=== PATIENT | male | born 1955 | race Caucasian/White ===

== ENCOUNTER 2018-12-22 01:50 | Emergency (ER) | payer OTHER ==
[2018-12-22 02:05] VITALS: PULSE 76; TEMP 98.2
[2018-12-22] MEDS ORDERED: PROPARACAINE 0.5% OPHTH DROPS 15 ML BTL BOTH EYES STA (02:16)
--- NOTE | 2018-12-22 02:30 | ED ---
General Adult HPI - General Chief complaint: Head Injury Stated complaint: L eye/shoulder injury Time Seen by Provider: 12/22/18 02:10 Source: patient Mode of arrival: ambulatory Limitations: no limitations - History of Present Illness Initial comments: Dictation was produced using [employer] dictation software. please excuse any grammatical, word or spelling errors. Chief Complaint: 63-year-old male past medical history of COPD and myocardial infarction presents with shoulder pain and facial pain. 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 He states that he was at work under several pounds of lumber. He states the lumbar fell onto him. He complains of right shoulder pain. He states some of that would struck him in the left part of his face hitting his eye. Patient has any visual deficits. He does complain of some eye pain. The ROS documented in this emergency department record has been reviewed and confirmed by me. Those systems with pertinent positive or negative responses have been documented in the HPI. All other systems are other negative and/or noncontributory. PHYSICAL EXAM: General Impression: Alert and oriented x3, not in acute distress HEENT: , extra-ocular movements intact, pupils equal and reactive to light bilaterally, mucous membranes moist. Ecchymoses around the left lower eye periorbitally, pupil is round and react to light, there is ecchymosis on both sides of the left iris, extraocular muscles intact, no proptosis or enophthalmos. Cardiovascular: Heart regular rate and rhythm, S1&S2 audible, no murmurs, rubs or gallops Chest: Lungs clear to auscultation bilaterally, no rhonchi, no wheeze, no rales Abdomen: Bowel sounds present, abdomen soft, non-tender, non-distended, no organomegaly Musculoskeletal: Pulses present and equal in all extremities, no peripheral edema, patient able to touch his contralateral shoulder with his right upper extremity, no step-offs felt over the clavicle, antalgia with past range of motion of the left shoulder Motor: no focal deficits noted Neurological: CN II-XII grossly intact, no focal motor or sensory deficits noted Skin: Intact with no visualized rashes Psych: Normal affect and mood ED course: 63-year-old male presents with left eye injury and right shoulder pain after a traumatic event. Vital signs upon arrival are within acceptable limits.Imaging studies were obtained. Face CT is unremarkable. No signs of acute injuries there. Shoulder x-ray shows calcific tendinitis to the right shoulder. Computed tomography scan of the head and C-spine was obtained. Chest x-rays unremarkable. There is findings of chronic appearing T1 compression fracture. Patient denies any neck pain at this time. Lower seen testing was obtained showing epithelial defect to the visual axis at approximately the 4 5 o'clock position. Defect measures approximately 2 x 3 mm. No evidence of Bee sign. Pupils are equal round and reactive. Patient does have findings of hemorrhage ecchymosis. Discussed patient case in detail with Dr. Issa ophthalmology on-call who does not feel that patient's symptomatology reflects globe rupture. He recommends patient be given eyedrops. And to make an appointment with him in the clinic tomorrow morning. She is understandable agreeable to plan. Told to return to emergency Department with worsening eye pain, vision changes. He is understandable and agreeable to disposition plan. - Related Data Previous Rx's Medication Instructions Recorded Levofloxacin 0.5% Ophth Soln 2 drop LEFT EYE Q2H #1 bottle 12/22/18 [Quixin Ophth Soln] Allergies Allergy/AdvReac Type Severity Reaction Status Date / Time ibuprofen [From Motrin] Allergy Vomiting Verified 12/22/18 02:06 acetaminophen [From Tylenol] AdvReac Nausea Verified 12/22/18 02:06 indomethacin [From Indocin] AdvReac Nausea Verified 12/22/18 02:06 propoxyphene [From Darvon] AdvReac Nausea Verified 12/22/18 02:06 Review of Systems ROS Statement: Those systems with pertinent positive or pertinent negative responses have been documented in the HPI. ROS Other: All systems not noted in ROS Statement are negative. Past Medical History Past Medical History: COPD, Myocardial Infarction ([place]) Additional Past Medical History / Comment(s): Parkinsons White symdrome, vertigo, spinal injuries, History of Any Multi-Drug Resistant Organisms: None Reported Additional Past Surgical History / Comment(s): CTS surguries Past Psychological History: ADD/ADHD, Anxiety, Bipolar, Depression, PTSD, Schizophrenia Smoking Status: Never smoker Past Alcohol Use History: None Reported Past Drug Use History: None Reported General Exam Limitations: no limitations Course Vital Signs 12/22/18 01:59 Temperature 98.2 F Pulse Rate 76 Respiratory 19 Rate Blood Pressure 147/86 O2 Sat by Pulse 99 Oximetry Disposition Clinical Impression: Eyeball contusion, Shoulder strain Disposition: HOME SELF-CARE Condition: Good Instructions (If sedation given, give patient instructions): Corneal Abrasion (ED) Prescriptions: Levofloxacin 0.5% Ophth Soln [Quixin Ophth Soln] 2 drop LEFT EYE Q2H #1 bottle Is patient prescribed a controlled substance at d/c from ED?: No Referrals: Santi Issa MD [STAFF PHYSICIAN] - 1-2 days Time of Disposition: 05:18
--- NOTE | 2018-12-22 04:17 | XR ---
EXAM: XR Right Shoulder Complete, 2 or More Views CLINICAL HISTORY: ITS.REASON XR Reason: Pain TECHNIQUE: Two or more views of the right shoulder. COMPARISON: None available FINDINGS: Bones/joints: No evidence of acute fracture or dislocation. Minimal degenerative changes about the acromioclavicular joint. Soft tissues: Small periarticular calcification along lateral aspect of humeral head suggesting calcific tendinitis. IMPRESSION: No evidence of acute fracture or dislocation. Findings suggestive of mild calcific tendinitis.
--- NOTE | 2018-12-22 04:23 | XR ---
EXAM: XR Chest, 2 Views CLINICAL HISTORY: ITS.REASON XR Reason: Pain TECHNIQUE: Frontal and lateral views of the chest. COMPARISON: No relevant prior studies available. FINDINGS: Lungs: No focal pulmonary infiltrates or consolidations. Pleural space: No evidence of pleural effusion or pneumothorax. Heart: Heart size is within normal limits. Mediastinum: Mediastinal structures are unremarkable. Bones/joints: Imaged bony thorax is unremarkable. IMPRESSION: No evidence of acute cardiopulmonary disease.
--- NOTE | 2018-12-22 04:36 | CT ---
EXAM: CT Maxillofacial Without Intravenous Contrast CLINICAL HISTORY: ITS.REASON CT Reason: Pain TECHNIQUE: Axial computed tomography images of the face without intravenous contrast. CTDI is 10.4 mGy and DLP is 283.4 mGy-cm. This CT exam was performed using one or more of the following dose reduction techniques: automated exposure control, adjustment of the mA and/or kV according to patient size, and/or use of iterative reconstruction technique. COMPARISON: None available FINDINGS: Artifacts: Mild CT motion artifact. Bones/joints: No evidence of acute facial fracture. Mild deformity along medial left orbital wall likely related to old trauma. No evidence of acute orbital fracture. Soft tissues: No significant soft tissue swelling identified. Orbits: Unremarkable. Sinuses: Paranasal sinuses are clear. No sinus fluid. Nasal cavity/septum: Moderate leftward deviation of nasal septum. IMPRESSION: No evidence of acute facial fracture.
[2018-12-22] MEDS ORDERED: DIPH,PERTUS(ACELL)TETVAC-LF 0.5 ML VIAL IM ONE (04:48)
[2018-12-22] MEDS ORDERED: MORPHINE SULFATE 4 MG/ML SYRINGE IVP STA (04:55)
--- NOTE | 2018-12-22 05:04 | CT ---
EXAM: CT Head Without Intravenous Contrast CLINICAL HISTORY: ITS.REASON CT Reason: Pain TECHNIQUE: Axial computed tomography images of the head/brain without intravenous contrast. CTDI is 25.9 mGy and DLP is 794.8 mGy-cm. This CT exam was performed using one or more of the following dose reduction techniques: automated exposure control, adjustment of the mA and/or kV according to patient size, and/or use of iterative reconstruction technique. COMPARISON: None available FINDINGS: Brain: No evidence of acute transcortical cerebral infarction or intracranial hemorrhage. No abnormal mass effect or midline shift. No abnormal extra-axial collections. Ventricles: Ventricles are unremarkable. Bones/joints: No skull fracture identified. Sinuses: Imaged paranasal sinuses are clear. Mastoid air cells: Mastoid sinuses are clear. IMPRESSION: No evidence of acute intracranial abnormality. EXAM: CT Cervical Spine Without Intravenous Contrast CLINICAL HISTORY: ITS.REASON CT Reason: Pain TECHNIQUE: Axial computed tomography images of the cervical spine without intravenous contrast. CTDI is 10.4 mGy and DLP is 283.4 mGy-cm. This CT exam was performed using one or more of the following dose reduction techniques: automated exposure control, adjustment of the mA and/or kV according to patient size, and/or use of iterative reconstruction technique. COMPARISON: None available FINDINGS: Vertebrae: Cervical vertebral height and alignment are within normal limits except for mild reversal of normal cervical lordosis. No evidence of acute cervical fracture or subluxation. Minimal T1 anterior vertebral compression fracture deformity which has probably chronic appearance. Discs/spinal canal/neural foramina: Moderate multilevel cervical disc disease, spondylosis and facet joint arthropathy. Soft tissues: No abnormal prevertebral soft tissue thickening. IMPRESSION: No evidence of acute cervical fracture or subluxation. Minimal T1 anterior vertebral compression fracture deformity which appears probably chronic. Clinical correlation is recommended. <MYCVCSECTION> [employer] 12/22/18 05:13 Verify Receipt Verified receipt with Dr. Light on 12/22 05:13 (-04:00)
[2018-12-22] MEDS ORDERED: ERYTHROMYCIN 5 MG/GM OPHTH OINT 3.5 GM TUBE LEFT EYE STA (05:14)
[2018-12-22 05:37] VITALS: BP 130/72; RESP 16
== END 2018-12-22 05:37 | disposition home or self-care (01) ==
LOC: EC 01:50
DX: S46.911A Strain of unspecified muscle, fascia and tendon at shoulder and upper arm level, right arm, initial encounter (principal); S05.12XA Contusion of eyeball and orbital tissues, left eye, initial encounter; Z23 Encounter for immunization; M75.31 Calcific tendinitis of right shoulder; I25.2 Old myocardial infarction; Z88.6 Allergy status to analgesic agent; Z88.5 Allergy status to narcotic agent; Z88.8 Allergy status to other drugs, medicaments and biological substances; W20.8XXA Other cause of strike by thrown, projected or falling object, initial encounter; Y92.69 Other specified industrial and construction area as the place of occurrence of the external cause; Y99.0 Civilian activity done for income or pay
CPT/HCPCS: 73030; 71046; 72125; 70486; 70450; 90715; 99284; 90471; 96374; J2270

== ENCOUNTER 2021-01-07 17:02 | Observation (INO) | payer OTHER ==
[2021-01-07] MEDS ORDERED: SODIUM CHLORIDE 0.9% 1,000 ML IV STA (17:13)
--- NOTE | 2021-01-07 17:24 | ED ---
General Adult HPI - General Chief complaint: Chest Pain Stated complaint: Chest pain Time Seen by Provider: 01/07/21 17:04 Source: patient Mode of arrival: ambulatory Limitations: no limitations - History of Present Illness Initial comments: Dictation was produced using [employer] dictation software. please excuse any grammatical, word or spelling errors. Chief Complaint: 65-year-old male past medical history of COPD, myocardial infarction, WPW status post ablation presents to the emergency department for sharp chest pain and palpitations History of Present Illness: She is 65-year-old male. Has multiple comorbidities. He states that over the last couple days he developed dizziness, sharp chest pain, palpitations. Patient has history of WPW. He is status post cardiac ablation hasn't had any issues since the ablation several years ago. Patient states that he's been feeling dizzy. He is having some superpubic abdominal pain and difficulty urinating. Patient states the pain is sharp and located to his left lower chest. He states it does radiate to the right jaw. No associated diaphoresis nausea. The ROS documented in this emergency department record has been reviewed and confirmed by me. Those systems with pertinent positive or negative responses have been documented in the HPI. All other systems are other negative and/or noncontributory. PHYSICAL EXAM: General Impression: Alert and oriented x3, not in acute distress HEENT: Normocephalic atraumatic, extra-ocular movements intact, pupils equal and reactive to light bilaterally, mucous membranes moist. Cardiovascular: Heart regular rate and rhythm Chest: Able to complete full sentences, no retractions, no tachypnea Abdomen: abdomen soft, non-tender, non-distended, no organomegaly Musculoskeletal: Pulses present and equal in all extremities, no peripheral edema Motor: no focal deficits noted Neurological: CN II-XII grossly intact, no focal motor or sensory deficits noted Skin: Intact with no visualized rashes Psych: Normal affect and mood ED course: 64-year-old male presents to the emergency room for chest pain, palpitations and dizziness. Vital signs upon arrival are within acceptable limits. Patient is well-appearing at bedside. Post void residual was measured with bladder scan from greater than 550 mL of urine. Villa catheter was placed. Laboratory evaluation obtained. CBC, metabolic panel is unremarkable. Troponin is negative. Chest x-ray is nonacute. Patient reevaluated at bedside at 7:10 PM found to be stable medical condition. Patient does have coronary artery disease. Patient be admitted for cardiac monitoring, serial troponins and cardiac consultation. EKG interpretation: Ventricular rate 85, normal sinus rhythm, VT interval 160, QRS 108, QTC 471. No VT prolongation, no QTC prolongation, no ST or T-wave velásquez ges noted. Overall, this EKG is unremarkable - Related Data Previous Rx's Medication Instructions Recorded Levofloxacin 0.5% Ophth Soln 2 drop LEFT EYE Q2H #1 bottle 12/22/18 [Quixin Ophth Soln] Allergies Allergy/AdvReac Type Severity Reaction Status Date / Time ibuprofen [From Motrin] Allergy Vomiting Verified 01/07/21 17:05 acetaminophen [From Tylenol] AdvReac Nausea Verified 01/07/21 17:05 indomethacin [From Indocin] AdvReac Nausea Verified 01/07/21 17:05 propoxyphene [From Darvon] AdvReac Nausea Verified 01/07/21 17:05 Review of Systems ROS Statement: Those systems with pertinent positive or pertinent negative responses have been documented in the HPI. ROS Other: All systems not noted in ROS Statement are negative. Past Medical History Past Medical History: COPD, Myocardial Infarction ([place]) Additional Past Medical History / Comment(s): [place] Parkinsons White symdrome, vertigo, spinal injuries, History of Any Multi-Drug Resistant Organisms: None Reported Past Surgical History: Cardiac Ablation Additional Past Surgical History / Comment(s): CTS surguries Past Psychological History: ADD/ADHD, Anxiety, Bipolar, Depression, PTSD, Schizo phrenia Smoking Status: Current every day smoker Past Alcohol Use History: None Reported Past Drug Use History: None Reported General Exam Limitations: no limitations Course Vital Signs 01/07/21 01/07/21 17:05 18:30 Temperature 98 F Pulse Rate 86 82 Respiratory 18 18 Rate Blood Pressure 164/112 156/112 O2 Sat by Pulse 100 99 Oximetry Medical Decision Making - Lab Data Result diagrams: 01/07/21 17:20 01/07/21 17:20 Lab Results 01/07/21 01/07/21 01/07/21 Range/Units 17:20 17:20 17:20 WBC 8.5 (3.8-10.6) k/uL RBC 5.31 (4.30-5.90) m/uL Hgb 15.8 (13.0-17.5) gm/dL Hct 47.4 (39.0-53.0) % MCV 89.3 (80.0-100.0) fL MCH 29.8 (25.0-35.0) pg MCHC 33.3 (31.0-37.0) g/dL RDW 13.9 (11.5-15.5) % Plt Count 189 (150-450) k/uL MPV 9.1 Neutrophils % 70 % Lymphocytes % 18 % Monocytes % 8 % Eosinophils % 2 % Basophils % 1 % Neutrophils # 5.9 (1.3-7.7) k/uL Lymphocytes # 1.5 (1.0-4.8) k/uL Monocytes # 0.7 (0-1.0) k/uL Eosinophils # 0.2 (0-0.7) k/uL Basophils # 0.1 (0-0.2) k/uL Sodium 136 L (137-145) mmol/L Potassium 3.5 (3.5-5.1) mmol/L Chloride 103 (98-107) mmol/L Carbon Dioxide 25 (22-30) mmol/L Anion Gap 8 mmol/L BUN 12 (9-20) mg/dL Creatinine 0.75 (0.66-1.25) mg/dL Est GFR (CKD-EPI)AfAm >90 (>60 ml/min/1.73 sqM) Est GFR (CKD-EPI)NonAf >90 (>60 ml/min/1.73 sqM) Glucose 100 H (74-99) mg/dL Calcium 9.7 (8.4-10.2) mg/dL Magnesium 2.0 (1.6-2.3) mg/dL Total Bilirubin 0.6 (0.2-1.3) mg/dL AST 28 (17-59) U/L ALT 26 (4-49) U/L Alkaline Phosphatase 62 (38-126) U/L Troponin I <0.012 (0.000-0.034) ng/mL Total Protein 6.9 (6.3-8.2) g/dL Albumin 4.1 (3.5-5.0) g/dL TSH 1.420 (0.465-4.680) mIU/L Disposition Clinical Impression: Chest pain Disposition: ADMITTED IP TO THIS HOSP Condition: Fair Referrals: Nonstaff,Physician [Primary Care Provider] - 1-2 days
[2021-01-07 17:39] LABS: ALT 26 U/L (4-49); AST 28 U/L (17-59); African American GFR (CKD) >90 (>60 ml/min/1.73 sqM); Albumin 4.1 g/dL (3.5-5.0); Alkaline Phosphatase 62 U/L (38-126); Anion Gap 8 mmol/L; Blood Urea Nitrogen 12 mg/dL (9-20); Calcium 9.7 mg/dL (8.4-10.2); Carbon Dioxide 25 mmol/L (22-30); Chloride 103 mmol/L (98-107); Glucose 100 mg/dL (74-99); Non-African American GFR(CKD) >90 (>60 ml/min/1.73 sqM); Potassium 3.5 mmol/L (3.5-5.1); Sodium 136 mmol/L (137-145); Total Bilirubin 0.6 mg/dL (0.2-1.3); Total Protein 6.9 g/dL (6.3-8.2)
--- NOTE | 2021-01-07 17:44 | XR ---
EXAMINATION TYPE: XR chest 2V DATE OF EXAM: 01/07/2021 COMPARISON: 12/22/2018 HISTORY: Chest pain TECHNIQUE: 2 views FINDINGS: Heart and mediastinum are normal. Lungs are clear. Diaphragm is normal. Bony thorax is inta ct. There is widening of the right AC joint space related to old ligamentous tear. IMPRESSION: No cardiopulmonary disease.. No change.
[2021-01-07 18:01] LABS: Basophils # (A) 0.1 k/uL (0-0.2); Basophils % (A) 1 %; Eosinophils # (A) 0.2 k/uL (0-0.7); Eosinophils % (A) 2 %; HCT 47.4 % (39.0-53.0); HGB 15.8 gm/dL (13.0-17.5); Lymphocytes # (A) 1.5 k/uL (1.0-4.8); Lymphocytes % (A) 18 %; MCH 29.8 pg (25.0-35.0); MCHC 33.3 g/dL (31.0-37.0); MCV 89.3 fL (80.0-100.0); Mean Platelet Volume 9.1; Monocytes # (A) 0.7 k/uL (0-1.0); Monocytes % (A) 8 %; Neutrophils # (A) 5.9 k/uL (1.3-7.7); Neutrophils % (A) 70 %; Platelet Count 189 k/uL (150-450); RBC 5.31 m/uL (4.30-5.90); RDW 13.9 % (11.5-15.5); WBC 8.5 k/uL (3.8-10.6)
[2021-01-07] MEDS ORDERED: ASPIRIN 81 MG PO STA (19:14)
[2021-01-07] MEDS ORDERED: NITROGLYCERIN SL TABS 0.4 MG TAB SUBLINGUAL PRN (19:14)
[2021-01-07 19:36] LABS: Partial Thromboplastin Time 24.2 sec (22.0-30.0); Prothrombin Time 10.8 sec (9.0-12.0)
[2021-01-07 20:00] LABS: Appearance,Urine Clear (Clear); Bilirubin,Urine Negative (Negative); Blood,Urine Negative (Negative); Color,Urine Colorless; Glucose,Urine (UA) Negative (Negative); Ketones,Urine 1+ (Negative); Leukocyte Esterase,Urine Negative (Negative); Nitrite,Urine Negative (Negative); PH, Urine 7.5 (5.0-8.0); Protein,Urine Negative (Negative); Specific Gravity,Urine 1.003 (1.001-1.035); Urobilinogen,Urine <2.0 mg/dL (<2.0)
[2021-01-07 20:07] LABS: Amphetamine Screen,Urine Detected (NotDetected); Barbiturate Screen,Urine Not Detected (NotDetected); Benzodiazepines Screen,Urine Not Detected (NotDetected); Cocaine Screen,Urine Not Detected (NotDetected); Methadone Screen, Urine Not Detected (NotDetected); Opiate Screen,Urine Not Detected (NotDetected); Oxycodone Screen, Urine Not Detected (NotDetected); Phencyclidine Screen,Urine Not Detected (NotDetected); Tricyclic Antidepressant,Urine Not Detected (NotDetected); Urn Cannabinoid Scrn Not Detected (NotDetected)
[2021-01-07] MEDS ORDERED: HYDROcodone/APAP 7.5-325MG 1 EACH TAB PO PRN (20:52)
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
[2021-01-08] MEDS: HEPARIN SODIUM,PORCINE/PF 5,000 UNIT/0.5 ML SYRINGE SQ SCH ×2 (00:43→08:45)
[2021-01-08 07:22] VITALS: BP 154/90; PULSE 79; RESP 16; TEMP 98.2
[2021-01-08] MEDS ORDERED: ASPIRIN 325 MG TAB PO SCH (09:00)
[2021-01-08] MEDS ORDERED: GABAPENTIN 300 MG CAP PO SCH (09:00)
[2021-01-08 09:24] LABS: Chol/HDL Ratio 2.6; LDL Cholesterol,Calculated 72.6 mg/dL (0.0-131.0); VLDL Calculation 18.4 mg/dL (5.00-40.00)
--- NOTE | 2021-01-08 13:42 | P.DS ---
Providers Date of admission: 01/07/21 19:14 Expected date of discharge: 01/08/21 Attending physician: Dylon Duarte MD Consults: 01/07/21 19:14 Consult Physician Urgent Consulting Provider: Michael Dillard Consult Reason/Comments: chest pain Do you want consulting provider notified?: Yes 01/07/21 19:36 Consult Physician Urgent Consulting Provider: Elieser Keller Consult Reason/Comments: psychosis Do you want consulting provider notified?: Yes Primary care physician: Physician Nonstaff Hospital Course: Pt left AMA prior to my evaluation this morning. Plan - Discharge Summary Discharge Rx Participant: No New Discharge Prescriptions: No Action HYDROcodone/APAP 7.5-325MG [[place] 7.5-325] 1 tab PO BID PRN PRN Reason: Pain Gabapentin [Neurontin] 300 mg PO DAILY Discharge Medication List Gabapentin [Neurontin] 300 mg PO DAILY 01/07/21 [History] HYDROcodone/APAP 7.5-325MG [[place] 7.5-325] 1 tab PO BID PRN 01/07/21 [History] Follow up Appointment(s)/Referral(s): Nonstaff,Physician [Primary Care Provider] - 1-2 days Discharge Disposition: Left Against Medical Advice
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
== END 2021-01-08 11:35 | disposition left against medical advice (07) ==
LOC: EC 17:02 → 6NMEDSUR 19:14
PROVIDERS: ADMIT Internal Medicine; ATTEND Internal Medicine
DX: R07.2 Precordial pain (principal); F19.10 Other psychoactive substance abuse, uncomplicated; R00.2 Palpitations; Z53.29 Procedure and treatment not carried out because of patient's decision for other reasons; I45.6 Pre-excitation syndrome; F20.9 Schizophrenia, unspecified; R30.0 Dysuria; M19.90 Unspecified osteoarthritis, unspecified site; M47.816 Spondylosis without myelopathy or radiculopathy, lumbar region; F17.200 Nicotine dependence, unspecified, uncomplicated; F31.9 Bipolar disorder, unspecified; F43.10 Post-traumatic stress disorder, unspecified; F90.9 Attention-deficit hyperactivity disorder, unspecified type; I25.10 Atherosclerotic heart disease of native coronary artery without angina pectoris; M51.36 Other intervertebral disc degeneration, lumbar region; I25.2 Old myocardial infarction; I44.4 Left anterior fascicular block; I51.7 Cardiomegaly; J44.9 Chronic obstructive pulmonary disease, unspecified; Z79.899 Other long term (current) drug therapy; Z88.6 Allergy status to analgesic agent; Z88.5 Allergy status to narcotic agent; F14.90 Cocaine use, unspecified, uncomplicated; F12.99 Cannabis use, unspecified with unspecified cannabis-induced disorder
CPT/HCPCS: 96360; 96361; 96372; 99285; 51798; 36415; 93005; 80061; 80053; 83735; 84443; 84484; 85025; 85610; 85730; 81003; 80306; 71046; G0378 ×2; J1644

== ENCOUNTER 2024-10-31 15:56 | Inpatient (IN) | payer MEDICARE, OTHER ==
[2024-10-31 16:41] LABS: Glucose,Whole Blood 81 mg/dL (70-110)
[2024-10-31 16:44] LABS: Basophils # (A) 0.06 10*3/uL (0.00-0.10); Basophils % (A) 0.7 %; Eosinophils # (A) 0.07 10*3/uL (0.04-0.35); Eosinophils % (A) 0.9 %; HCT 44.4 % (39.6-50.0); HGB 15.1 g/dL (13.0-17.0); Lymphocytes # (A) 1.74 10*3/uL (0.90-5.00); Lymphocytes % (A) 21.3 %; MCH 29.6 pg (27.0-32.0); MCV 87.1 fL (80.0-97.0); Mean Platelet Volume 10.8 fL (9.5-12.2); Monocytes # (A) 0.74 10*3/uL (0.20-1.00); Monocytes % (A) 9.1 %; Neutrophils # (A) 5.54 10*3/uL (1.80-7.70); Neutrophils % (A) 67.8 %; Platelet Count 277 10*3/uL (140-440); RDW 13.6 % (11.5-14.5); WBC 8.17 10*3/uL (4.50-10.00)
[2024-10-31 16:53] LABS: Partial Thromboplastin Time 23.2 sec (22.0-30.0); Prothrombin Time 10.9 sec (10.0-12.5)
[2024-10-31] MEDS: SODIUM CHLORIDE 0.9% 1,000 ML IV STA (16:55)
[2024-10-31] MEDS: MORPHINE SULFATE 2 MG/ML SYRINGE IVP STA (16:55)
[2024-10-31 17:02] LABS: ALT 18 U/L (4-49); AST 24 U/L (17-59); African American GFR (CKD) >90 (>60 ml/min/1.73 sqM); Albumin 3.8 g/dL (3.5-5.0); Alkaline Phosphatase 54 U/L (38-126); Anion Gap 11 mmol/L; Blood Urea Nitrogen 18 mg/dL (9-20); Calcium 10.3 mg/dL (8.4-10.2); Carbon Dioxide 26 mmol/L (22-30); Chloride 101 mmol/L (98-107); Creatine Kinase 206 U/L (55-170); Glucose 82 mg/dL (74-99); Non-African American GFR(CKD) 89 (>60 ml/min/1.73 sqM); Potassium 4.1 mmol/L (3.5-5.1); Sodium 138 mmol/L (137-145); Total Bilirubin 0.5 mg/dL (0.2-1.3); Total Protein 6.5 g/dL (6.3-8.2)
--- NOTE | 2024-10-31 17:31 | CT ---
EXAMINATION TYPE: CODE STROKE: CTA head neck DATE OF EXAM: 10/31/2024 4:53 PM COMPARISON: CT brain same day.. CLINICAL INDICATION: Male, 69 years old with history of Neuro deficit, acute, stroke suspected; PHH, Code stroke TECHNIQUE: Axially acquired helical CT angiogram of the head and neck was obtained with contrast. Axi al images are supplemented with 3D reconstructions and MIP images which were post-processed at an in dependent workstation. NASCET criteria used. Contrast used:65 ml mL of Isovue 370 with IV Contrast, Oral contrast used: None. CT DLP: 599.6 mGycm, Automated exposure control for dose reduction was used. Repeat scanning was performed for artifact. FINDINGS: CTA HEAD: No evidence of acute intracranial hemorrhage, mass effect, or midline shift. The ventricles, sulci, a nd cisterns are unremarkable. Vertebral arteries: The vertebral arteries are patent. Vertebral artery dominance: Codominant Basilar artery: The basilar artery is intact. The basilar artery bifurcation is normal. Internal Carotid arteries: The cervical, petrous, cavernous and supraclinoid segments are normal. FAISAL: Patent with no evidence of aneurysm. ACOM: Present without evidence of aneurysm. MCA: Patent with no evidence of aneurysm. GAS LINE INSTALLER: origin left posterior cerebral artery. Patent with no evidence of aneurysm. PCOM: origin left hypoplastic right. Dural sinuses: Patent. CTA NECK: Right Carotid System: The common carotid artery and external carotid artery are patent. Tortuosity to the internal carotid artery. The carotid bifurcation demonstrates no evidence of hemodynamically significant stenosis. The remaining portions of the internal carotid artery demonstrate normal size without significant narrow ing. Left Carotid System: The common carotid and external carotid arteries are patent. There is tortuosity to the internal williamson tid artery. 43 % stenosis at the carotid bifurcation secondary to calcified/noncalcified plaque. The rest of the internal carotid artery is patent. Vertebral arteries are patent without evidence hemodynamically significant stenosis. There is a three-vessel aortic arch. The origins of the great vessels are patent. No evidence of hemo dynamically significant stenosis. Upper thorax: Few scattered groundglass opacities in the right lung apex. IMPRESSION: 1. 43 % stenosis of the proximal left internal carotid artery due to calcified and noncalcified plaq ue. There is tortuosity to the remainder of the artery. 2. No evidence of dissection of the cervical internal carotid arteries or vertebral arteries. 3. No any evidence of significant stenosis at the right carotid bifurcation. 4. No evidence of intracranial high-grade stenosis or intracranial aneurysm. 5. New scattered groundglass opacities in the right lung apex correlate for atypical pneumonia. [facility], , 10/31/2024 5:28 PM
--- NOTE | 2024-10-31 17:37 | CT ---
EXAMINATION TYPE: CODE STROKE: CT brain wo fredy, DATE OF EXAM: 10/31/2024 4:50 PM COMPARISON: CT same day CTA. CLINICAL INDICATION: Male, 69 years old with history of Neuro deficit, acute, stroke suspected, Code stroke. TECHNIQUE: Brain: Axial CT images of the brain were obtained with coronal and sagittal reformats created and rev iewed. Contrast used: None. Oral contrast used: None. CT DLP: 1160.6 (accession [id number]), 1101.6 (accession [id number]) mGycm, Automated exposure control fo r dose reduction was used. Patient was rescanned due to artifact in the brain for a suspected area of stroke which was confirmed on the second scan. FINDINGS: Brain: Extra-axial spaces: No abnormal extra-axial fluid collections. Ventricular system: Within normal limits Cerebral parenchyma: Loss of leos-white matter differentiation in the right parietal which appears mo re acute subacute and more chronic-appearing the left parietal region. No acute intraparenchymal hemo rrhage or mass effect. The remainder of the leos-white junctions are well differentiated. Cerebellum: Unremarkable. Mass effect: No evidence of midline shift. Intracranial vasculature: unremarkable Soft tissues: Normal. Calvarium/osseous structures: No depressed skull fracture. Paranasal sinuses and mastoid air cells: Mild scattered paranasal sinus disease. Visualized orbits: Orbital contents are intact. IMPRESSION: Acute/subacute CVA in the right parietal region and more chronic appearing left parietal region CVA. Findings communicated to Coy Beltran MD on 10/31/2024 4:[address] Dion Da Silva. [facility], , 10/31/2024 5:34 PM
--- NOTE | 2024-10-31 17:53 | XR ---
EXAMINATION TYPE: XR chest 2V DATE OF EXAM: 10/31/2024 5:08 PM COMPARISON: Chest radiographs from 01/07/2021 CLINICAL INDICATION: Male, 69 years old with history of altered mental status; [facility] TECHNIQUE: XR chest 2V Frontal and lateral views of the chest. FINDINGS: Lungs/Pleura: There is no evidence of pleural effusion, focal consolidation, or pneumothorax. Pulmonary vascularity: Unremarkable. Heart/mediastinum: Cardiomediastinal silhouette is unremarkable. Musculoskeletal: No acute osseous pathology. Other findings: None IMPRESSION: No acute cardiopulmonary disease/process. [facility], , 10/31/2024 5:51 PM
--- NOTE | 2024-10-31 17:59 | ED ---
General Adult HPI - General Chief complaint: Neuro Symptoms/Deficit Stated complaint: Numbness Time Seen by Provider: 10/31/24 16:20 Source: patient, RN notes reviewed, old records reviewed Mode of arrival: ambulatory Limitations: no limitations - History of Present Illness Initial comments: Patient is a 69-year-old male who presents emergency department complaining of strokelike symptoms. States last known well was at 11 or 12 PM yesterday evening when he went to sleep. Awoke this morning and is having complete left- sided numbness of the face, arm, leg as well as some left upper extremity weakness and mild left lower extremity weakness. States history of stroke. Has a history of what appears to be CAD and COPD. Denies any chest pain. Does endorse some chronic neck pain as well as chronic left shoulder pain. Presents for further evaluation at this time. States he does have some degree of chronic numbness of the left arm however it is typically in the left shoulder region and not the entire left arm. - Related Data Home Medications Medication Instructions Recorded Confirmed Gabapentin 600 mg PO TID 10/31/24 10/31/24 QUEtiapine FUMARATE [SEROquel XR] 400 mg PO HS 10/31/24 10/31/24 Sertraline [Zoloft] 50 mg PO DAILY 10/31/24 10/31/24 Allergies Allergy/AdvReac Type Severity Reaction Status Date / Time acetaminophen [From Tylenol] AdvReac Nausea Verified 10/31/24 18:38 ibuprofen [From Motrin] AdvReac Vomiting Verified 10/31/24 18:38 indomethacin [From Indocin] AdvReac Nausea Verified 10/31/24 18:38 propoxyphene [From Darvon] AdvReac Nausea Verified 10/31/24 18:38 Review of Systems ROS Statement: Those systems with pertinent positive or pertinent negative responses have been documented in the HPI. Review of Systems: CONST: Denies fever EYES: Denies blurry vision ENT: Denies nasal congestion C/V: Denies Chest pain RESP: Denies shortness of breath GI: Denies abdominal pain : Denies dysuria SKIN: Denies rash. MSK: Denies joint pain. NEURO: Denies headache ROS Other: All systems not noted in ROS Statement are negative. Past Medical History Past Medical History: COPD, Myocardial Infarction ([place]) Additional Past Medical History / Comment(s): [place] Parkinsons White symdrome, vertigo, spinal injuries, Last Myocardial Infarction Date:: 2011 History of Any Multi-Drug Resistant Organisms: None Reported Past Surgical History: Cardiac Ablation Additional Past Surgical History / Comment(s): CTS surguries Past Psychological History: ADD/ADHD, Anxiety, Bipolar, Depression, PTSD, Schizophrenia Smoking Status: Current every day smoker Past Alcohol Use History: None Reported Past Drug Use History: None Reported General Exam - General Exam Comments Initial Comments: General: Appears in no acute distress. HEAD: Normal with no signs of head trauma. EYES: PERRLA, EOMI, conjunctiva normal, no discharge. Pupils are 3 mm and equal bilaterally. ENT: Hearing grossly intact, normal oropharynx. RESPIRATORY: Clear breath sounds bilaterally. No wheezes, rales, or rhonchi. C/V: Regular rate and rhythm. S1 and S2 auscultated, no edema, peripheral pulses 2+ and intact throughout ABD: Abd is soft, nontender, nondistended EXT: Normal range of motion, no obvious deformity SKIN: No rashes or lesions observed on exposed skin. NEURO: Alert and oriented x 4. NIH is approximately a 3. Receives 1 point for mild left upper extremity drift, 1 point for left lower extremity drift, 1 point for left-sided sensory deficits to light touch. Last known well was 12 AM last night. Limitations: no limitations Course Vital Signs 10/31/24 10/31/24 10/31/24 16:00 16:53 17:29 Temperature 97.7 F Pulse Rate 88 73 73 Respiratory 18 16 20 Rate Blood Pressure 96/62 109/77 131/91 O2 Sat by Pulse 98 96 96 Oximetry 10/31/24 10/31/24 10/31/24 18:05 18:18 19:39 Temperature Pulse Rate 72 89 90 Respiratory 18 16 18 Rate Blood Pressure 131/92 122/89 112/75 O2 Sat by Pulse 96 96 Oximetry Medical Decision Making - Medical Decision Making Was pt. sent in by a medical professional or institution (, PA, MOBILE HOME [employer] UTILITY WORKER, urgent care, hospital, or usp...) When possible be specific @ -No Did you speak to anyone other than the patient for history (EMS, parent, family, police, friend...)? What history was obtained from this source @ -No Did you review nursing and triage notes (agree or disagree)? Why? @ -I reviewed and agree with nursing and triage notes Were old charts reviewed (outside hosp., previous admission, EMS record, old EKG, old radiological studies, urgent care reports/EKG's, usp records)? Report findings @ -Compared today's EKG with EKG from December 2020 with no significant acute change. Differential Diagnosis (chest pain, altered mental status, abdominal pain women, abdominal pain men, vaginal bleeding, weakness, fever, dyspnea, syncope, headache, dizziness, GI bleed, back pain, seizure, CVA, palpatations, mental health, musculoskeletal)? @ -Differential CVA Ischemic stroke, hemorrhagic stroke, brain tumor, atypical migraine, Wernicke's encephalopathy, seizure, multiple sclerosis, meningitis, encephalitis, hypoglycemia, Guillain-Jewell, electrolytes disturbance, myasthenia gravis.... This is not meant to be an all-inclusive list EKG interpreted by me (3pts min.). @ -As above X-rays interpreted by me (1pt min.). @ -X-ray reveals no obvious acute cardiopulmonary process CT interpreted by me (1pt min.). @ -CT brain, CT angiogram head and neck were initially obtained and then repeated. This was requested by the radiologist. I was contacted him and said there was a lot of artifact on the initial imaging and recommended repeating. Patient CT angiogram shows 43% stenosis of the proximal left internal carotid artery but no obvious high-grade occlusion. Patient's CT brain revealed an acute/subacute CVA in the right parietal region with a chronic appearing left parietal region CVA. U/S interpreted by me (1pt. min.). @ -None done What testing was considered but not performed or refused? (CT, X-rays, U/S, labs)? Why? @ -None What meds were considered but not given or refused? Why? @ -None Did you discuss the management of the patient with other professionals (professionals i.e. DrCollin, PA, MOBILE HOME [employer] UTILITY WORKER, lab, RT, psych nurse, social media manager, electric repair supervisor, te acher, chief nursing officer, case therapist)? Give summary @ -Patient was made a code stroke activation. I initially spoke with nurse practitioner Sherri who works for neuro kitchen and counter worker Dr. Laurent who is in agreement the plan for workup. I did discuss results with Dr. Laurent who was in agreement with medical management and admission. Was in agreement the plan for aspirin. Was smoking cessation discussed for >3mins.? @ -No Was critical care preformed (if so, how long)? @ -Yes, 35 minutes Were there social determinants of health that impacted care today? How? (Homelessness, low income, unemployed, alcoholism, drug addiction, transportation, low edu. Level, literacy, decrease access to med. care, usp, rehab)? @ -No Was there de-escalation of care discussed even if they declined (Discuss DNR or withdrawal of care, Hospice)? DNR status @ -No What co-morbidities impacted this encounter? (DM, HTN, Smoking, COPD, CAD, Cancer, CVA, ARF, Chemo, Hep., AIDS, mental health diagnosis, sleep apnea, morbid obesity)? @ -None Was patient admitted / discharged? Hospital course, mention meds given and route, prescriptions, significant lab abnormalities, going to OR and other pertinent info. @ -Patient presents with strokelike symptoms. Code stroke activated. Last known well was last night at 12 AM. NIH is 3. Patient is not a candidate for tenecteplase as risks far outweigh the benefits and patient is outside of the time window. We obtain stroke activation and patient was in agreement this plan. I initially spoke with nurse practitioner Sherri who works for neuro kitchen and counter worker Dr. Laurent who is in agreement the plan for workup. EKG shows no signs of acute ischemia. Laboratory studies all returned within acceptable limits. Chest x-ray shows no obvious acute cardiopulmonary process. CT brain, CT angiogram head and neck were initially obtained and then repeated. This was requested by the radiologist. I was contacted him and said there was a lot of artifact on the initial imaging and recommended repeating. Patient CT angiogram shows 43% stenosis of the proximal left internal carotid artery but no obvious high-grade occlusion. Patient's CT brain revealed an acute/subacute CVA in the right parietal region with a chronic appearing left parietal region CVA. I did discuss results with Dr. Laurent who was in agreement with medical management and admission. Was in agreement the plan for aspirin. I spoke with the admitting provider, BRIAN Arenas of the [facility] who accepted the admission. Undiagnosed new problem with uncertain prognosis? @ -No Drug Therapy requiring intensive monitoring for toxicity (Heparin, Nitro, Insulin, Cardizem)? @ -No Were any procedures done? @ -No Diagnosis/symptom? @ -CVA Acute, or Chronic, or Acute on Chronic? @ -Acute Uncomplicated (without systemic symptoms) or Complicated (systemic symptoms)? @ -Complicated Side effects of treatment? @ -No Exacerbation, Progression, or Severe Exacerbation? @ -No Poses a threat to life or bodily function? How? (Chest pain, [place], [place], pneumonia, PE, COPD, DKA, ARF, appy, cholecystitis, CVA, Diverticulitis, Homicidal, Suicidal, threat to staff... and all critical care pts) @ -Yes - Lab Data Result diagrams: 10/31/24 16:36 10/31/24 16:36 Lab Results 10/31/24 10/31/24 10/31/24 Range/Units 16:30 16:36 16:36 WBC 8.17 (4.50-10.00) 10*3/uL RBC 5.10 (4.40-5.60) 10*6/uL Hgb 15.1 (13.0-17.0) g/dL Hct 44.4 (39.6-50.0) % MCV 87.1 (80.0-97.0) fL MCH 29.6 (27.0-32.0) pg MCHC 34.0 (32.0-37.0) g/dL Plt Count 277 (140-440) 10*3/uL MPV 10.8 (9.5-12.2) fL Immature Gran % (Auto) 0.2 % Neutrophils % 67.8 % Lymphocytes % 21.3 % Monocytes % 9.1 % Eosinophils % 0.9 % Basophils % 0.7 % Immature Gran # 0.02 (0.00-0.04) 10*3/uL Neutrophils # 5.54 (1.80-7.70) 10*3/uL Lymphocytes # 1.74 (0.90-5.00) 10*3/uL Monocytes # 0.74 (0.20-1.00) 10*3/uL Eosinophils # 0.07 (0.04-0.35) 10*3/uL Basophils # 0.06 (0.00-0.10) 10*3/uL PT 10.9 (10.0-12.5) sec INR 1.0 (<1.2) APTT 23.2 (22.0-30.0) sec Sodium (137-145) mmol/L Potassium (3.5-5.1) mmol/L Chloride (98-107) mmol/L Carbon Dioxide (22-30) mmol/L Anion Gap mmol/L BUN (9-20) mg/dL Creatinine (0.66-1.25) mg/dL Est GFR (CKD-EPI)AfAm (>60 ml/min/1.73 sqM) Est GFR (CKD-EPI)NonAf (>60 ml/min/1.73 sqM) Glucose (74-99) mg/dL POC Glucose (mg/dL) 81 (70-110) mg/dL POC Glu Contracts Manager ID Josie Hwang Calcium (8.4-10.2) mg/dL Total Bilirubin (0.2-1.3) mg/dL AST (17-59) U/L ALT (4-49) U/L Alkaline Phosphatase (38-126) U/L Creatine Kinase (55-170) U/L Total Protein (6.3-8.2) g/dL Albumin (3.5-5.0) g/dL 10/31/24 Range/Units 16:36 WBC (4.50-10.00) 10*3/uL RBC (4.40-5.60) 10*6/uL Hgb (13.0-17.0) g/dL Hct (39.6-50.0) % MCV (80.0-97.0) fL MCH (27.0-32.0) pg MCHC (32.0-37.0) g/dL Plt Count (140-440) 10*3/uL MPV (9.5-12.2) fL Immature Gran % (Auto) % Neutrophils % % Lymphocytes % % Monocytes % % Eosinophils % % Basophils % % Immature Gran # (0.00-0.04) 10*3/uL Neutrophils # (1.80-7.70) 10*3/uL Lymphocytes # (0.90-5.00) 10*3/uL Monocytes # (0.20-1.00) 10*3/uL Eosinophils # (0.04-0.35) 10*3/uL Basophils # (0.00-0.10) 10*3/uL PT (10.0-12.5) sec INR (<1.2) APTT (22.0-30.0) sec Sodium 138 (137-145) mmol/L Potassium 4.1 (3.5-5.1) mmol/L Chloride 101 (98-107) mmol/L Carbon Dioxide 26 (22-30) mmol/L Anion Gap 11 mmol/L BUN 18 (9-20) mg/dL Creatinine 0.89 (0.66-1.25) mg/dL Est GFR (CKD-EPI)AfAm >90 (>60 ml/min/1.73 sqM) Est GFR (CKD-EPI)NonAf 89 (>60 ml/min/1.73 sqM) Glucose 82 (74-99) mg/dL POC Glucose (mg/dL) (70-110) mg/dL POC Glu Contracts Manager ID Calcium 10.3 H (8.4-10.2) mg/dL Total Bilirubin 0.5 (0.2-1.3) mg/dL AST 24 (17-59) U/L ALT 18 (4-49) U/L Alkaline Phosphatase 54 (38-126) U/L Creatine Kinase 206 H (55-170) U/L Total Protein 6.5 (6.3-8.2) g/dL Albumin 3.8 (3.5-5.0) g/dL - EKG Data -: EKG Interpreted by Me EKG Comments: 12-lead Electrocardiogram Interpretation Note EKG was reviewed and interpreted by myself. 12-lead ECG performed at 1628 is interpreted by me as revealing normal sinus rhythm at a rate of 74 beats per minute. Left axis deviation. MN interval is 198 ms, QRS durations 110 ms, QTc is 421 ms. There were no ST or T wave abnormalities to suggest myocardial ischemia or injury. R wave progression across the precordium was satisfactory. By my interpretation this EKG is non-diagnostic for acute ischemia. Compared with EKG from December 2020 with no obvious acute significant change. Critical Care Time Critical Care Time: Yes Total Critical Care Time: 35 Disposition Clinical Impression: Cerebrovascular accident (CVA) Disposition: ADMITTED IP TO THIS [facility] Condition: Stable Time of Disposition: 17:55
[2024-10-31] MEDS: ASPIRIN 325 MG TAB PO STA (18:43)
[2024-10-31] MEDS: QUEtiapine 200 MG TAB PO SCH (21:31)
[2024-10-31] MEDS: GABAPENTIN 300 MG CAP PO SCH (23:12)
[2024-11-01] MEDS: SERTRALINE 50 MG TAB PO SCH (08:09)
[2024-11-01] MEDS: ASPIRIN 81 MG PO SCH (10:43)
[2024-11-01 11:02] LABS: Chol/HDL Ratio 3.15 Ratio; LDL Cholesterol,Calculated 87.7 mg/dL (0.0-131.0)
--- NOTE | 2024-11-01 12:18 | P.CNNES ---
History of Present Illness Consult date: 11/01/24 Requesting physician: Coy Beltran Reason for Consult: cva. no tnk History of Present Illness: Patient is a 69-year-old right-handed male with history of previous CVA, minimal deficits, came to the hospital at 3:56 PM for strokelike symptoms. Patient is not a very good historian, not able to that his symptoms very clearly. What I gather is that patient states that the night before arrival to hospital, shortly after midnight, he fell down as he stumbled over the chair. He hit left side of the ribs. It was dark in the room and he was having difficulty getting his way out of the room, although he is very much familiar with the room even in the dark. He has to crawl on his knees and hands to find the way out. He noticed he has no feeling in the left arm. He also had some slurred speech, but denies any facial droop, or any problem with the vision. His balance was off, stumbling all over. He states that he could not get out of the room. His [id number] found him later and he was brought to the hospital. Patient states that last known well was 11 PM when he went to bed in usual state of health. He woke up an hour later to go to the bathroom with all the symptoms. Vital signs on arrival blood pressure 96/62, came up to 109/77, pulse rate 88 temperature 97.7. Blood test shows normal CBC, PT PTT, normal CMP. CT head showed acute/subacute CVA in the right parietal region and more chronic appearing left parietal region CVA. I personally reviewed CT head, agree with the findings. EKG showed sinus rhythm. Chest x-ray showed no acute cardiopulmonary process. Patient's home medication clued sertraline 50 mg, Seroquel 400 mg at bedtime and gabapentin 600 mg 3 times daily. Patient does not take any antiplatelet medication at home. Patient states he lives with 2 roommates. He vapes nicotine, does not do any tobacco otherwise, no marijuana or drugs. He drinks alcohol very little. He admits to having hypertension but no diabetes. Patient states he had history of a stroke 2 years ago, which affected his left side. He has residual stiffness in the left arm, but nothing in the leg. He states that his left arm symptoms got worse with this current event. Review of Systems All pertinent positive and negative review of system mentioned in HPI. Otherwise unremarkable. Past Medical History Past Medical History: COPD, CVA/TIA, Myocardial Infarction ([place]), Neurologic Disorder Additional Past Medical History / Comment(s): [place] Parkinsons White symdrome, vertigo, spinal injuries, Last Myocardial Infarction Date:: 2011 History of Any Multi-Drug Resistant Organisms: None Reported Past Surgical History: Cardiac Ablation Additional Past Surgical History / Comment(s): CTS surguries Past Psychological History: ADD/ADHD, Anxiety, Bipolar, Depression, PTSD, Schizophrenia Smoking Status: Vaper Past Alcohol Use History: None Reported Past Drug Use History: None Reported Medications and Allergies Home Medications Medication Instructions Recorded Confirmed Type Gabapentin 600 mg PO TID 10/31/24 10/31/24 History QUEtiapine FUMARATE [SEROquel XR] 400 mg PO HS 10/31/24 10/31/24 History Sertraline [Zoloft] 50 mg PO DAILY 10/31/24 10/31/24 History Allergies Allergy/AdvReac Type Severity Reaction Status Date / Time acetaminophen [From Tylenol] AdvReac Nausea Verified 10/31/24 18:38 ibuprofen [From Motrin] AdvReac Vomiting Verified 10/31/24 18:38 indomethacin [From Indocin] AdvReac Nausea Verified 10/31/24 18:38 propoxyphene [From Darvon] AdvReac Nausea Verified 10/31/24 18:38 Physical Examination - Vital Signs Vital Signs: Vital Signs Temp Pulse Pulse Resp BP BP Pulse Ox 11/01/24 07:55 98.9 F 85 16 126/78 96 11/01/24 04:34 98.6 F 88 16 90/54 95 10/31/24 23:13 98.7 F 83 16 130/61 97 10/31/24 22:00 80 18 149/99 98 10/31/24 21:30 98.6 F 10/31/24 21:28 80 18 125/70 98 10/31/24 19:39 90 18 112/75 10/31/24 18:18 89 16 122/89 96 10/31/24 18:05 72 18 131/92 96 10/31/24 17:29 73 20 131/91 96 10/31/24 16:53 73 16 109/77 96 10/31/24 16:00 97.7 F 88 18 96/62 98 Intake and Output 10/31/24 11/01/24 11/01/24 22:59 06:59 14:59 Intake Total 400 10 Output Total 0 Balance 400 10 Intake: IV 10 Invasive Line 2 10 Oral 400 Output: Urine 0 Other: Voiding Method External Catheter External Catheter # Voids 1 Weight 81.647 kg 81.7 kg Patient is an elderly male, in no acute distress. Patient is somewhat somnolent, but does become alert awake oriented to time place and person. Speech and language functions are normal. Patient can name and repeat very well. No aphasia or dysarthria. Attention, concentration and fund of knowledge is adequate. Detailed cognitive function testing deferred. On cranial nerve examination, pupils are equal, round and reacting to light, visual tee are full on confrontation, with no neglect on double simultaneous stimulation. Extraocular muscles are intact with no nystagmus. Face is symmetric, tongue protrudes to the midline. Palatal elevation and sensation normal, hearing and shoulder shrug normal, facial sensation normal. On muscle strength testing, on checking pronator drift, patient has myoclonic jerks of outstretched hands bilaterally. However his left arm droops down more with these jerks as compared to the right. The strength is normal in arms and legs distally and proximally. Deep tendon reflexes are (right/left) biceps 1/2, brachioradialis 1/2, knees 1+/2+, ankles 1/1 plantars are flat. Sensory to touch is equal with no neglect on double simultaneous stimulation. Cerebellar function showed possible ataxia for [id number] testing on the left although it was somewhat mixing up with no myoclonic jerks. No definitive ataxia for [id number] testing on either side. Tone and bulk of muscles normal. Gait deferred.. On general examination, there is no carotid bruit or murmur, S1-S2 audible. Chest is clear on consultation. Abdomen is soft nontender. No organomegaly, bowel sounds present. Peripheral pulses are present. No peripheral edema. Results - Laboratory Findings CBC and BMP: 10/31/24 16:36 10/31/24 16:36 Abnormal Lab Findings: Abnormal Labs 10/31/24 16:36 Calcium 10.3 H Creatine Kinase 206 H Assessment and Plan Assessment: * Probable acute stroke, manifesting with left arm numbness. * History of CVA with residual left arm stiffness. * Metabolic encephalopathy, myoclonic jerks, unclear cause. * Hypertension * Vapes nicotine Plan: MRI of the brain without contrast, evaluate for acute CVA 2-D echo with bubble study to rule out PFO CTA of head and neck: Revealed 43% stenosis of the proximal left ICA due to calcified and noncalcified plaque. There is tortuosity of the remainder of the artery. No evidence of dissection of the cervical internal carotid arteries or vertebral arteries. No evidence of significant stenosis in the carotid evaluation. No evidence of intracranial high-grade stenosis or intracranial aneurysm. New scattered groundglass opacities in the right lung apex, correlate for atypical pneumonia. Fasting a.m. Lipid panel with cholesterol 164, LDL 87, HDL 52, triglycerides 121. Patient started on Lipitor 80 mg daily. Hemoglobin A1c Permissive hypertension for next 24-48 hours EEG for mental confusion, encephalopathy. Urine drug screen. Patient received aspirin 324 mg in the ER. Now maintained on aspirin 81 mg daily. We will consider dual antiplatelet therapy with Plavix 75 mg at least for the first 21 days. Neuro checks every 2 hours Telemetry monitoring rule out any arrhythmia PT, OT, speech therapy Urine drug screen. DVT prophylaxis: Heparin 5000 units subcu every 8 hours Neurology will continue to follow. Thank you for the consult.
--- NOTE | 2024-11-01 12:28 | P.HPIM ---
History of Present Illness H&P Date: 11/01/24 History of present illness; patient 69-year-old gentleman with past medical history significant for depression, stroke who presents the ER because of left- sided numbness and weakness. Patient stated that he was all right last night but this morning he woke up with numbness of the face, left upper and lower extremity. Patient also noticed that his left upper and lower extremity were weaker. There was no evidence of any facial droop, there was some slurring of speech. There was no complaint of any jerking of extremity. There was no complaint of loss of consciousness. Patient denied any headache. There was no current chest pain or shortness of breath. Because of this left-sided numbness and weakness, patient became concerned and decided to come to the ER Initial lab work done in the ER showed WBC 8.17, hemoglobin 15.1, platelet count 277, sodium 130, potassium 4.1, BUN 18, creatinine 0.89, calcium 10.3 EKG done in the ER showed heart rate of 74, no ST segment elevation or depress ion seen, no T-wave inversions seen. Chest x-ray done in the ER showed no acute cardiopulmonary process CT head done showed acute/subacute CVA in the right parietal region and more chronic appearing left parietal region CVA CTA head and neck done showed 43% stenosis of the proximal left internal carotid artery due to calcified and noncalcified plaques. Patient admitted to internal medicine service REVIEW OF SYSTEMS: CONSTITUTIONAL: No fever, no malaise, no fatigue. HEENT: No recent visual problems or hearing problems. Denied any sore throat. CARDIOVASCULAR: No chest pain, orthopnea, PND, no palpitations, no syncope. PULMONARY: No shortness of breath, no cough, no hemoptysis. GASTROINTESTINAL: No diarrhea, no nausea, no vomiting, no abdominal pain. NEUROLOGICAL: As mentioned above HEMATOLOGICAL: Denies any bleeding or petechiae. GENITOURINARY: Denies any burning micturition, frequency, or urgency. MUSCULOSKELETAL/RHEUMATOLOGICAL: Denies any joint pain, swelling, or any muscle pain. ENDOCRINE: Denies any polyuria or polydipsia. The rest of the 14-point review of systems is negative. PHYSICAL EXAMINATION: GENERAL: The patient is alert and oriented x3, not in any acute distress. Well developed, well nourished. HEENT: Pupils are round and equally reacting to light. EOMI. No scleral icterus. No conjunctival pallor. Normocephalic, atraumatic. No pharyngeal erythema. No thyromegaly. CARDIOVASCULAR: S1 and S2 present. No murmurs, rubs, or gallops. PULMONARY: Chest is clear to auscultation, no wheezing or crackles. ABDOMEN: Soft, nontender, nondistended, normoactive bowel sounds. No palpable organomegaly. MUSCULOSKELETAL: No joint swelling or deformity. EXTREMITIES: No cyanosis, clubbing, or pedal edema. NEUROLOGICAL: Cranial 12 intact, left upper extremity muscle strength is 4 x 5, 4 x 5 in left lower extremity, numbness noticeable in left side SKIN: No rashes. Assessment and plan Acute CVA,CT head done showed acute/subacute CVA in the right parietal region History of prior CVA Hypertension Monitor vital signs Monitor CBC Monitor CMP Continue telemetry monitoring Ordered neurochecks Allow permissive hypertension for the first 24 to 48 hours Order HbA1c level Ordered lipid panel Ordered aspirin, Lipitor Ordered 2D echo Consult neurology Consult PT, OT, speech Labs and medication were reviewed.. Continue same treatment. Continue with symptomatic treatment. Resume home medication. Monitor labs and vitals. DVT and GI prophylaxis. Further recommendations as per clinical course of the patient Dictation was produced using [employer] dictation software. please excuse any grammatical, word or spelling errors. Past Medical History Past Medical History: COPD, CVA/TIA, Myocardial Infarction ([place]), Neurologic Disorder Additional Past Medical History / Comment(s): [place] Parkinsons White symdrome, vertigo, spinal injuries, Last Myocardial Infarction Date:: 2011 History of Any Multi-Drug Resistant Organisms: None Reported Past Surgical History: Cardiac Ablation Additional Past Surgical History / Comment(s): CTS surguries Past Psychological History: ADD/ADHD, Anxiety, Bipolar, Depression, PTSD, Schizophrenia Smoking Status: Vaper Past Alcohol Use History: None Reported Past Drug Use History: None Reported Medications and Allergies Home Medications Medication Instructions Recorded Confirmed Type Gabapentin 600 mg PO TID 10/31/24 10/31/24 History QUEtiapine FUMARATE [SEROquel XR] 400 mg PO HS 10/31/24 10/31/24 History Sertraline [Zoloft] 50 mg PO DAILY 10/31/24 10/31/24 History Allergies Allergy/AdvReac Type Severity Reaction Status Date / Time acetaminophen [From Tylenol] AdvReac Nausea Verified 10/31/24 18:38 ibuprofen [From Motrin] AdvReac Vomiting Verified 10/31/24 18:38 indomethacin [From Indocin] AdvReac Nausea Verified 10/31/24 18:38 propoxyphene [From Darvon] AdvReac Nausea Verified 10/31/24 18:38 Physical Exam Vitals: Vital Signs Temp Pulse Pulse Resp BP BP Pulse Ox 11/01/24 07:55 98.9 F 85 16 126/78 96 11/01/24 04:34 98.6 F 88 16 90/54 95 10/31/24 23:13 98.7 F 83 16 130/61 97 10/31/24 22:00 80 18 149/99 98 10/31/24 21:30 98.6 F 10/31/24 21:28 80 18 125/70 98 10/31/24 19:39 90 18 112/75 10/31/24 18:18 89 16 122/89 96 10/31/24 18:05 72 18 131/92 96 10/31/24 17:29 73 20 131/91 96 10/31/24 16:53 73 16 109/77 96 10/31/24 16:00 97.7 F 88 18 96/62 98 Intake and Output 10/31/24 11/01/24 11/01/24 22:59 06:59 14:59 Intake Total 400 Balance 400 Intake: Oral 400 Other: Voiding Method External Catheter External Catheter # Voids 1 Weight 81.647 kg 81.7 kg Results CBC & Chem 7: 10/31/24 16:36 10/31/24 16:36 Labs: Abnormal Lab Results - Last 24 Hours (Table) 10/31/24 Range/Units 16:36 Calcium 10.3 H (8.4-10.2) mg/dL Creatine Kinase 206 H (55-170) U/L
[2024-11-01] MEDS: LIDOCAINE 4% PATCH TOPICAL SCH (12:51)
[2024-11-01] MEDS: CLOPIDOGREL 75 MG TAB PO SCH (12:51)
--- NOTE | 2024-11-01 13:41 | CA ---
Transthoracic Echo Report Name: Michael Cifuentes Age: 69 Gender: M : 1955 Exam Date: 11/01/2024 11:56 Exam Location: [facility] Ht (in): 70 Wt (lb): 180 Ordering Physician: Fred Torres MD Attending/Referring Phys: [employer] Eri Karimi RDCS Procedure CPT: Indications: Slurred speech, CVA Cardiac Hx: Technical Quality: Good Contrast 1: Agitated Saline Total Dose (mL): 10 Contrast 2: Total Dose (mL): MEASUREMENTS (Male / Female) Normal Values 2D ECHO LV Diastolic Diameter PLAX 4.3 cm 4.2 - 5.9 / 3.9 - 5.3 cm LV Systolic Diameter PLAX 2.7 cm IVS Diastolic Thickness 1.1 cm 0.6 - 1.0 / 0.6 - 0.9 cm LVPW Diastolic Thickness 1.2 cm 0.6 - 1.0 / 0.6 - 0.9 cm LV Relative Wall Thickness 0.5 RV Internal Dim ED PLAX 2.1 cm LA Systolic Diameter LX 3.1 cm 3.0 - 4.0 / 2.7 - 3.8 cm LV Diastolic Volume MOD BP 78.7 cm??? 67 - 155 / 56 - 104 cm??? LV Systolic Volume MOD BP 38.6 cm??? 22 - 58 / 19 - 49 cm??? LV Ejection Fraction MOD BP 51.0 % >= 55 % LV Cardiac Index MOD BP 1530.8 cm???/min???m??? LV Diastolic Volume MOD 4C 112.2 cm??? LV Systolic Volume MOD 4C 51.1 cm??? LV Ejection Fraction MOD 4C 54.5 % LV Cardiac Index MOD 4C 2331.7 cm???/min???m??? LV Diastolic Length 4C 8.1 cm LV Systolic Length 4C 6.7 cm LV Diastolic Volume MOD 2C 45.4 cm??? LV Systolic Volume MOD 2C 26.1 cm??? LV Ejection Fraction MOD 2C 42.5 % LV Cardiac Index MOD 2C 734.8 cm???/min???m??? LV Diastolic Length 2C 6.5 cm LV Systolic Length 2C 6.0 cm LA Volume 53.2 cm??? 18 - 58 / 22 - 52 cm??? LA Volume Index 26.4 cm???/m??? 16 - 28 cm???/m??? M-MODE Aortic Root Diameter MM 3.9 cm LA Systolic Diameter MM 3.5 cm LA Ao Ratio MM 0.9 AV Cusp Separation MM 2.2 cm DOPPLER AI Peak Velocity 396.9 cm/s AI Peak Gradient 63.0 mmHg AI Pressure Half Time 987.7 ms MV Area PHT 2.7 cm??? Mitral E Point Velocity 60.1 cm/s Mitral A Point Velocity 79.8 cm/s Mitral E to A Ratio 0.8 MV Deceleration Time 285.6 ms TR Peak Velocity 178.8 cm/s TR Peak Gradient 12.8 mmHg FINDINGS Left Ventricle Left ventricular ejection fraction is estimated at 55-60%. Normal left ventricular systolic function with no obvious regional wall motion abnormalities. Left ventricular cavity size normal. Mild concentric left ventricular hypertrophy. Right Ventricle Normal right ventricular size and function. Right ventricular systolic pressure within normal limits. Right Atrium Mild right atrial dilatation. Negative agitated saline bubble study for right to left shunt. Left Atrium Mild left atrial dilatation. Mitral Valve Structurally normal mitral valve. Mild mitral regurgitation. No mitral stenosis. Aortic Valve Trileaflet aortic valve. No aortic stenosis. Trace to mild aortic regurgitation. Tricuspid Valve Structurally normal tricuspid valve. Trace to mild tricuspid regurgitation. No tricuspid stenosis. Pulmonic Valve Structurally normal pulmonic valve. Trace pulmonic regurgitation. No pulmonic stenosis. Pericardium No pericardial or pleural effusion. Aorta Aorta at the level of the sinuses of valsalva (root) normal 3.9cm CONCLUSIONS Normal LV function Negative agitated saline contrast study Previewed by: Dr. Harvinder Cleveland MD (Electronically Signed) Final Date: 01 Nov 2024 13:40
[2024-11-01 13:53] LABS: Chol/HDL Ratio 2.93 Ratio; LDL Cholesterol,Calculated 76.3 mg/dL (0.0-131.0); VLDL Calculation 17.26 mg/dL (5.00-40.00)
[2024-11-01] MEDS: MORPHINE SULFATE 2 MG/ML SYRINGE IVP PRN (17:11)
[2024-11-01 18:41] LABS: Amphetamine Screen,Urine Not Detected (NotDetected); Barbiturate Screen,Urine Not Detected (NotDetected); Benzodiazepines Screen,Urine Not Detected (NotDetected); Cocaine Screen,Urine Not Detected (NotDetected); Methadone Screen, Urine Not Detected (NotDetected); Opiate Screen,Urine Detected (NotDetected); Oxycodone Screen, Urine Not Detected (NotDetected); Phencyclidine Screen,Urine Not Detected (NotDetected); Tricyclic Antidepressant,Urine Detected (NotDetected); Urn Cannabinoid Scrn Not Detected (NotDetected)
[2024-11-01] MEDS: ATORVASTATIN 80 MG TAB PO SCH (20:01)
[2024-11-02 11:28] LABS: Basophils # (A) 0.07 10*3/uL (0.00-0.10); Basophils % (A) 1.1 %; Eosinophils # (A) 0.31 10*3/uL (0.04-0.35); Eosinophils % (A) 4.7 %; HCT 40.4 % (39.6-50.0); HGB 13.5 g/dL (13.0-17.0); Lymphocytes # (A) 1.68 10*3/uL (0.90-5.00); Lymphocytes % (A) 25.5 %; MCH 29.9 pg (27.0-32.0); MCHC 33.4 g/dL (32.0-37.0); MCV 89.4 fL (80.0-97.0); Monocytes # (A) 0.89 10*3/uL (0.20-1.00); Monocytes % (A) 13.5 %; Neutrophils # (A) 3.61 10*3/uL (1.80-7.70); Neutrophils % (A) 54.9 %; Platelet Count 224 10*3/uL (140-440); RBC 4.52 10*6/uL (4.40-5.60); RDW 13.7 % (11.5-14.5); WBC 6.58 10*3/uL (4.50-10.00)
[2024-11-02 11:46] LABS: ALT 15 U/L (4-49); AST 19 U/L (17-59); African American GFR (CKD) >90 (>60 ml/min/1.73 sqM); Albumin 3.1 g/dL (3.5-5.0); Alkaline Phosphatase 55 U/L (38-126); Anion Gap 6 mmol/L; Blood Urea Nitrogen 21 mg/dL (9-20); Calcium 9.4 mg/dL (8.4-10.2); Carbon Dioxide 30 mmol/L (22-30); Chloride 100 mmol/L (98-107); Glucose 116 mg/dL (74-99); Non-African American GFR(CKD) >90 (>60 ml/min/1.73 sqM); Potassium 4.6 mmol/L (3.5-5.1); Sodium 136 mmol/L (137-145); Total Bilirubin 0.3 mg/dL (0.2-1.3); Total Protein 5.6 g/dL (6.3-8.2)
--- NOTE | 2024-11-02 13:39 | P.PN ---
Subjective Progress Note Date: 11/02/24 patient 69-year-old gentleman with past medical history significant for depression, stroke who presents the ER because of left-sided numbness and weakness. Patient stated that he was all right last night but this morning he woke up with numbness of the face, left upper and lower extremity. Patient also noticed that his left upper and lower extremity were weaker. There was no evidence of any facial droop, there was some slurring of speech. There was no complaint of any jerking of extremity. There was no complaint of loss of consciousness. Patient denied any headache. There was no current chest pain or shortness of breath. Because of this left-sided numbness and weakness, patient became concerned and decided to come to the ER Initial lab work done in the ER showed WBC 8.17, hemoglobin 15.1, platelet count 277, sodium 130, potassium 4.1, BUN 18, creatinine 0.89, calcium 10.3 EKG done in the ER showed heart rate of 74, no ST segment elevation or depression seen, no T-wave inversions seen. Chest x-ray done in the ER showed no acute cardiopulmonary process CT head done showed acute/subacute CVA in the right parietal region and more chronic appearing left parietal region CVA CTA head and neck done showed 43% stenosis of the proximal left internal carotid artery due to calcified and noncalcified plaques. Patient admitted to internal medicine service 11/02. Patient seen and examined. States he feels better. Patient is less confused compared to yesterday. REVIEW OF SYSTEMS: CONSTITUTIONAL: No fever, no malaise,. CARDIOVASCULAR: No chest pain, no palpitations, no syncope. PULMONARY: No shortness of breath, no cough, GASTROINTESTINAL: No diarrhea, no nausea, no vomiting, no abdominal pain. NEUROLOGICAL: No headaches, no weakness, PHYSICAL EXAMINATION: GENERAL: The patient is alert and oriented x3, not in any acute distress. Well developed, well nourished. HEENT: Pupils are round and equally reacting to light. EOMI. No scleral icterus. No conjunctival pallor. Normocephalic, atraumatic. No pharyngeal erythema. No thyromegaly. CARDIOVASCULAR: S1 and S2 present. No murmurs, rubs, or gallops. PULMONARY: Chest is clear to auscultation, no wheezing or crackles. ABDOMEN: Soft, nontender, nondistended, normoactive bowel sounds. No palpable organomegaly. MUSCULOSKELETAL: No joint swelling or deformity. EXTREMITIES: No cyanosis, clubbing, or pedal edema. NEUROLOGICAL: Cranial 12 intact, left upper extremity muscle strength is 4 x 5, 4 x 5 in left lower extremity, numbness noticeable in left side SKIN: No rashes. Assessment and plan Acute CVA,CT head done showed acute/subacute CVA in the right parietal region History of prior CVA Hypertension Monitor vital signs Monitor CBC Monitor CMP Continue telemetry monitoring Continue rechecks Continue aspirin, Plavix, Lipitor Continue Zoloft 2D echo done showed normal LV function MRI brain on ordered EEG ordered Neurology following, appreciate recommendation Labs and medication were reviewed.. Continue same treatment. Continue with symptomatic treatment. Resume home medication. Monitor labs and vitals. DVT and GI prophylaxis. Further recommendations as per clinical course of the patient Dictation was produced using [email or web address] dictation software. please excuse any grammatical, word or spelling errors. Objective - Vital Signs Vital signs: Vital Signs Temp 98.5 F 11/02/24 08:53 Pulse 69 11/02/24 08:53 Resp 16 11/02/24 08:53 BP 145/74 11/02/24 10:26 Pulse Ox 95 11/02/24 08:53 FiO2 Intake & Output 11/01/24 11/02/24 11/02/24 18:59 06:59 18:59 Intake Total 10 240 10 Output Total 550 500 250 Balance -540 -260 -240 Weight 81.6 kg Intake: IV 10 10 Invasive Line 2 10 10 Oral 240 Output: Urine 550 500 250 Other: Voiding Method Urinal Urinal Urinal # Voids 1 - Labs CBC & Chem 7: 11/02/24 11:00 11/02/24 11:00 Labs: Abnormal Lab Results - Last 24 Hours (Table) 11/01/24 Range/Units 18:15 Urine Opiates Screen Detected H (NotDetected) U Tricyclic Antidepress Detected H (NotDetected)
[2024-11-02] MEDS: hydrALAZINE HCL 20 MG/ML 1 ML VIAL IVP PRN (20:51)
[2024-11-02] MEDS: NITROGLYCERIN SL TABS 0.4 MG TAB SUBLINGUAL PRN (23:34)
[2024-11-02] MEDS: METOPROLOL TARTRATE 12.5 MG TAB PO SCH (23:34)
--- NOTE | 2024-11-03 02:33 | P.PN ---
Subjective Progress Note Date: 11/02/24 Patient was seen for follow-up. Patient states he is feeling much better. No new concerns. Continues to have decreased sensation in the left arm. Objective - Vital Signs Vital signs: Vital Signs Temp 98.2 F 11/02/24 11:31 Pulse 63 11/02/24 11:31 Resp 18 11/02/24 11:31 BP 148/85 11/02/24 11:31 Pulse Ox 97 11/02/24 11:31 FiO2 Intake & Output 11/01/24 11/02/24 11/02/24 18:59 06:59 18:59 Intake Total 10 240 128 Output Total 550 500 250 Balance -540 -260 -122 Weight 81.6 kg Intake: IV 10 10 Invasive Line 2 10 10 Oral 240 118 Output: Urine 550 500 250 Other: Voiding Method Urinal Urinal Toilet Urinal # Voids 1 1 # Bowel Movements 1 - Exam Mental status, speech and language functions are normal. Cranial nerves are normal. On muscle strength testing, patient has left pronation, no drift. The strength is normal. Sensation decreased in the left arm. No ataxia. - Labs CBC & Chem 7: 11/02/24 11:00 11/02/24 11:00 Labs: Abnormal Lab Results - Last 24 Hours (Table) 11/01/24 11/02/24 Range/Units 18:15 11:00 Sodium 136 L (137-145) mmol/L BUN 21 H (9-20) mg/dL Glucose 116 H (74-99) mg/dL Total Protein 5.6 L (6.3-8.2) g/dL Albumin 3.1 L (3.5-5.0) g/dL Urine Opiates Screen Detected H (NotDetected) U Tricyclic Antidepress Detected H (NotDetected) Assessment and Plan Assessment: * Probable acute stroke, manifesting with left arm numbness. * History of CVA with residual left arm stiffness. * CTA revealed 43% stenosis proximal left ICA to calcified and noncalcified plaque. This is likely asymptomatic, as patient's symptoms are on the ipsilateral side. * Metabolic encephalopathy, myoclonic jerks, unclear cause. * Hypertension * Vapes nicotine Plan: Await MRI of the brain without contrast, evaluate for acute CVA 2-D echo revealed normal LV size and systolic function with EF 55-60%. No obvious regional wall motion abnormalities. Mild left atrial dilation. Negative agitated saline bubble study for [id number]-self shunt. No significant valvular abnormalities. CTA of head and neck: Revealed 43% stenosis of the proximal left ICA due to calcified and noncalcified plaque. There is tortuosity of the remainder of the artery. No evidence of dissection of the cervical internal carotid arteries or vertebral arteries. No evidence of significant stenosis in the carotid evaluation. No evidence of intracranial high-grade stenosis or intracranial aneurysm. New scattered groundglass opacities in the right lung apex, correlate for atypical pneumonia. Fasting a.m. Lipid panel with cholesterol 164, LDL 87, HDL 52, triglycerides 121. Patient started on Lipitor 80 mg daily. Hemoglobin A1c Permissive hypertension for next 24-48 hours EEG for mental confusion, encephalopathy. Urine drug screen positive for opiates and tricyclic. Patient received aspirin 324 mg in the ER. Now maintained on aspirin 81 mg daily. We will consider dual antiplatelet therapy with Plavix 75 mg at least for the first 21 days. Neuro checks every 2 hours Telemetry monitoring rule out any arrhythmia PT, OT, speech therapy DVT prophylaxis: Heparin 5000 units subcu every [address] Gilberto Green to resume neurology service the morning.
[2024-11-03 06:55] LABS: Basophils # (A) 0.08 10*3/uL (0.00-0.10); Eosinophils # (A) 0.31 10*3/uL (0.04-0.35); HCT 42.1 % (39.6-50.0); HGB 14.4 g/dL (13.0-17.0); Lymphocytes # (A) 1.78 10*3/uL (0.90-5.00); MCH 29.9 pg (27.0-32.0); MCHC 34.2 g/dL (32.0-37.0); MCV 87.5 fL (80.0-97.0); Monocytes % (A) 11.6 %; Neutrophils # (A) 4.64 10*3/uL (1.80-7.70); Platelet Count 249 10*3/uL (140-440); RBC 4.81 10*6/uL (4.40-5.60); RDW 13.3 % (11.5-14.5); WBC 7.74 10*3/uL (4.50-10.00)
[2024-11-03 07:07] LABS: ALT 15 U/L (4-49); AST 19 U/L (17-59); African American GFR (CKD) >90 (>60 ml/min/1.73 sqM); Albumin 3.5 g/dL (3.5-5.0); Alkaline Phosphatase 54 U/L (38-126); Anion Gap 4 mmol/L; Blood Urea Nitrogen 16 mg/dL (9-20); Calcium 9.6 mg/dL (8.4-10.2); Carbon Dioxide 29 mmol/L (22-30); Chloride 104 mmol/L (98-107); Glucose 101 mg/dL (74-99); Non-African American GFR(CKD) >90 (>60 ml/min/1.73 sqM); Potassium 4.4 mmol/L (3.5-5.1); Sodium 137 mmol/L (137-145); Total Bilirubin 0.5 mg/dL (0.2-1.3); Total Protein 6.1 g/dL (6.3-8.2)
[2024-11-03 08:49] VITALS: TEMP 98
[2024-11-03 12:15] VITALS: BP 145/83; PULSE 62; RESP 20
--- NOTE | 2024-11-03 15:10 | P.PN ---
Subjective Progress Note Date: 11/03/24 Seeing the patient for the first time during this hospital visit. Please refer to Dr. Rosas's note for further details. Patient states that he presents because of weakness in the left arm as well as numbness. He denies any neck pain. He states his symptoms began about 2 nights ago. He is having also left rib pain that he presented with. Denies any trauma. Seems that he is doing better overall. Objective - Vital Signs Vital signs: Vital Signs Temp 98 F 11/03/24 08:36 Pulse 62 11/03/24 13:07 Resp 20 11/03/24 12:03 BP 145/83 11/03/24 12:03 Pulse Ox 97 11/03/24 12:03 FiO2 Intake & Output 11/02/24 11/03/24 11/03/24 18:59 06:59 18:59 Intake Total 368 20 480 Output Total 250 Balance 118 20 480 Weight 82.4 kg Intake: IV 10 20 Invasive Line 2 10 20 Oral 358 480 Output: Urine 250 Other: Voiding Method Toilet Toilet Toilet Urinal Urinal # Voids 2 2 1 # Bowel Movements 1 - Exam General: Patient is sitting on the side of the bed and is not in acute distress Neuro: Patient is awake alert oriented to self place and time. Is following simple commands. No aphasia. The pupils are round equal about 3 mm reactive to light. Visual tee are full to confrontation. Extraocular moods intact no nystagmus. No facial weakness. No dysarthria Motor: Strength is handgrip is about 4+ and patient states that this is chronic. Otherwise rest is 5 out of 5. Sensation is normal to touch throughout Cerebellar is normal [id number] bilaterally. Reflexes is 2 positive throughout. - Labs CBC & Chem 7: 11/03/24 06:30 11/03/24 06:30 Labs: Abnormal Lab Results - Last 24 Hours (Table) 11/03/24 Range/Units 06:30 Glucose 101 H (74-99) mg/dL Total Protein 6.1 L (6.3-8.2) g/dL Assessment and Plan Assessment: * Probable acute stroke, manifesting with left arm numbness. * History of CVA with residual left arm stiffness. * CTA revealed 43% stenosis proximal left ICA to calcified and noncalcified plaque. This is likely asymptomatic, as patient's symptoms are on the ipsilateral side. * Metabolic encephalopathy, myoclonic jerks, unclear cause. * Hypertension * Vapes nicotine Plan: Await MRI of the brain without contrast, evaluate for acute CVA 2-D echo revealed normal LV size and systolic function with EF 55-60%. No obvious regional wall motion abnormalities. Mild left atrial dilation. Negative agitated saline bubble study for [id number] shunt. No significant valvular abnormalities. CTA of head and neck: Revealed 43% stenosis of the proximal left ICA due to calcified and noncalcified plaque. There is tortuosity of the remainder of the artery. No evidence of dissection of the cervical internal carotid arteries or vertebral arteries. No evidence of significant stenosis in the carotid evaluation. No evidence of intracranial high-grade stenosis or intracranial aneurysm. New scattered groundglass opacities in the right lung apex, correlate for atypical pneumonia. Fasting a.m. Lipid panel with cholesterol 164, LDL 87, HDL 52, triglycerides 121. Patient started on Lipitor 80 mg daily. Hemoglobin A1c: 5.9 EEG for mental confusion, encephalopathy: Preliminary is negative for seizure or discharges. Urine drug screen positive for opiates and tricyclic. Patient received aspirin 324 mg in the ER. Now maintained on aspirin 81 mg daily. We will consider dual antiplatelet therapy with Plavix 75 mg at least for the first 21 days. Neuro checks every 2 hours Telemetry monitoring rule out any arrhythmia PT, OT, speech therapy DVT prophylaxis: Heparin 5000 units subcu every 8 hours Time with Patient: Less than 30
--- NOTE | 2024-11-05 16:37 | EEG ---
ELECTROENCEPHALOGRAM REPORT CLINICAL HISTORY: This is a 69-year-old gentleman with altered mental status. The video EEG is obtained to evaluate for seizure epileptiform activity. RELEVANT MEDICATION: 1. Seroquel. 2. Gabapentin. EEG TYPE: This is a routine 21-channel EEG with video using the 10/20 electrode placement system. DESCRIPTION: Wakefulness and drowsiness are obtained. During awake state, posterior-dominant rhythm consists of [id number] voltage of 8.5 hertz activity that is well modulated and well sustained. There is no physiological stage 2 sleep architecture. There is no focal slowing. Interictal and ictal are none. ACTIVATION PROCEDURE: Photic stimulation did not evoke a posterior driving response. There is no abnormality during the photic stimulation. Hyperventilation is not performed. CLINICAL INTERPRETATION: This is a normal routine EEG during awake and drowsy state. There is no focal slowing, epileptiform discharge, or seizure on the EEG. A normal routine EEG does not rule out underlying epilepsy. Clinical correlation is recommended. MMAMINTAL / IJN: [id number] /
== END 2024-11-03 14:45 | disposition left against medical advice (07) | DRG 64 ==
LOC: EC 15:56 → 3SCARD 17:56
PROVIDERS: ADMIT Hospitalist; ATTEND Hospitalist
PROC: 4A10X4Z Monitoring of Central Nervous Electrical Activity, External Approach (ICD-10-PCS; principal; 2024-11-03)
DX: I63.89 Other cerebral infarction (principal); G93.41 Metabolic encephalopathy; J44.9 Chronic obstructive pulmonary disease, unspecified; G20.A1 Parkinson's disease without dyskinesia, without mention of fluctuations; F20.9 Schizophrenia, unspecified; I10 Essential (primary) hypertension; I65.22 Occlusion and stenosis of left carotid artery; F31.9 Bipolar disorder, unspecified; Z53.29 Procedure and treatment not carried out because of patient's decision for other reasons; R29.703 NIHSS score 3; I69.30 Unspecified sequelae of cerebral infarction; F17.290 Nicotine dependence, other tobacco product, uncomplicated; I69.398 Other sequelae of cerebral infarction; G25.3 Myoclonus; F90.9 Attention-deficit hyperactivity disorder, unspecified type; F43.10 Post-traumatic stress disorder, unspecified; G89.29 Other chronic pain; F41.9 Anxiety disorder, unspecified; Z79.899 Other long term (current) drug therapy; I25.2 Old myocardial infarction; W18.09XA Striking against other object with subsequent fall, initial encounter; Y92.099 Unspecified place in other non-institutional residence as the place of occurrence of the external cause; Z88.6 Allergy status to analgesic agent; Z88.8 Allergy status to other drugs, medicaments and biological substances
CPT/HCPCS: 36415; 70450; 70496; 70498; 71046; 80053; 80061; 80306; 82550; 83036; 85025; 85610; 85730; 93005; 93306; 95816; 96361; 96374; 99291

== ENCOUNTER 2024-11-10 12:35 | Inpatient (IN) | payer MEDICARE, OTHER ==
--- NOTE | 2024-11-10 12:49 | ED ---
General Adult HPI - General Stated complaint: AMS Time Seen by Provider: 11/10/24 12:40 Source: patient, EMS, RN notes reviewed Mode of arrival: EMS Limitations: altered mental status (Alcohol intoxication) - History of Present Illness Initial comments: Patient is a 69-year-old male present to the emergency department following fall. Incident occurred prior to arrival. Patient was on roof cleaning out gutters. Patient does not recall the fall very well. Patient is unclear if he struck his head. Patient does admit to drinking alcohol. Patient states 1 or 2 drinks. Patient does admit to having some neck pain and right heel pain. Patient mostly complains of left-sided rib pain. No dyspnea. Patient does have history of stroke. No new weakness. Patient is intoxicated and is difficult to focus for history and exam. EMS felt patient to be the same way. - Related Data Home Medications Medication Instructions Recorded Confirmed Gabapentin 600 mg PO TID 10/31/24 11/10/24 QUEtiapine FUMARATE [SEROquel XR] 400 mg PO HS 10/31/24 11/10/24 Sertraline [Zoloft] 50 mg PO DAILY 10/31/24 11/10/24 Allergies Allergy/AdvReac Type Severity Reaction Status Date / Time acetaminophen [From Tylenol] AdvReac Nausea Verified 11/10/24 15:33 ibuprofen [From Motrin] AdvReac Vomiting Verified 11/10/24 15:33 indomethacin [From Indocin] AdvReac Nausea Verified 11/10/24 15:33 propoxyphene [From Darvon] AdvReac Nausea Verified 11/10/24 15:33 Review of Systems ROS Statement: Those systems with pertinent positive or pertinent negative responses have been documented in the HPI. ROS Other: All systems not noted in ROS Statement are negative. Constitutional: Denies: fever Eyes: Denies: eye pain ENT: Denies: ear pain Respiratory: Denies: cough, dyspnea Cardiovascular: Reports: as per HPI Endocrine: Denies: fatigue Gastrointestinal: Denies: abdominal pain Neurological: Reports: as per HPI. Denies: headache Past Medical History Past Medical History: COPD, CVA/TIA, Myocardial Infarction (NC), Neurologic Disorder Additional Past Medical History / Comment(s): [place] Parkinsons White symdrome, vertigo, spinal injuries, Last Myocardial Infarction Date:: 2011 History of Any Multi-Drug Resistant Organisms: None Reported Past Surgical History: Cardiac Ablation Additional Past Surgical History / Comment(s): CTS surguries Past Psychological History: ADD/ADHD, Anxiety, Bipolar, Depression, PTSD, Schizophrenia Smoking Status: Vaper Past Alcohol Use History: None Reported Past Drug Use History: None Reported General Exam Limitations: no limitations General appearance: alert, in no apparent distress Head exam: Present: atraumatic Eye exam: Present: normal appearance, PERRL, EOMI, nystagmus ENT exam: Present: normal oropharynx Neck exam: Present: normal inspection, tenderness (Lower cervical spine tenderness. C-collar placed) Respiratory exam: Present: normal lung sounds bilaterally, chest wall tenderness (Left lateral ribs) Cardiovascular Exam: Present: regular rate, normal rhythm GI/Abdominal exam: Present: soft, normal bowel sounds. Absent: distended, tenderness, guarding, rebound, pulsatile mass Extremities exam: Present: full ROM, tenderness (Mild tenderness right heel) Back exam: Absent: tenderness, CVA tenderness (R), CVA tenderness (L), vertebral tenderness Neurological exam: Present: alert, CN II-XII intact. Absent: motor sensory deficit Expanded Neurological exam: Present: protecting the airway, other (Exam is limited by patient poor compliance.) Patient oriented to: Present: person, place. Absent: time Sensory exam: Upper Extremity Light Touch: Normal, Lower Extremity Light Touch: Normal Motor strength exam: RUE: 5, LUE: 5, RLE: 5, LLE: 5 Eye Response: (4) open spontaneously Motor Response: (6) obeys commands Verbal Response: (4) confused conversation Psychiatric exam: Present: other (Appears intoxicated) Skin exam: Present: normal color Course Vital Signs 11/10/24 11/10/24 12:38 12:56 Temperature 98.0 F Pulse Rate 71 Respiratory 18 Rate Blood Pressure 97/86 O2 Sat by Pulse 96 Oximetry - Reevaluation(s) Reevaluation #1: 11/10/24 12:52 Case was discussed with Dr. Carnes at 1240 EKG Findings - EKG Results: EKG: interpreted by RCOÍO (Left axis. Septal Q waves. LVH criteria), sinus rhythm, normal ST/T Medical Decision Making - Medical Decision Making Case again discussed with Dr. Carnes at [phone]. Decision is that patient will not need admission and can be discharged after further observation and clinical clearance of cervical spine. Was pt. sent in by a medical professional or institution (, PA, STAFF CONSULTANT, urgent care, hospital, or [facility]...) When possible be specific @ -No Did you speak to anyone other than the patient for history (EMS, parent, family, police, friend...)? What history was obtained from this source @ -EMS helps provide history as patient is intoxicated Did you review nursing and triage notes (agree or disagree)? Why? @ -I reviewed and agree with nursing and triage notes Were old charts reviewed (outside hosp., previous admission, EMS record, old EKG, old radiological studies, urgent care reports/EKG's, [facility] records)? Report findings @ -No old charts were reviewed Differential Diagnosis (chest pain, altered mental status, abdominal pain women, abdominal pain men, vaginal bleeding, weakness, fever, dyspnea, syncope, headache, dizziness, GI bleed, back pain, seizure, CVA, palpatations, mental health, musculoskeletal)? @ -Differential Musculoskeletal Muscular strain, contusion, ligament sprain, fracture, arthritis, septic arthritis, bursitis, cellulitis, muscle spasm, nerve compression, DVT, arterial occlusion, herpes zoster, electrolyte abnormality, tumor.... This is not meant to be in all inclusive list EKG interpreted by me (3pts min.). @ -As above X-rays interpreted by me (1pt min.). @ -Chest x-ray, pelvis x-ray, foot x-ray without evidence of acute fracture CT interpreted by me (1pt min.). @ -CT scan brain and cervical spine without acute traumatic injury. CT scan chest abdomen pelvis shows transverse process fracture right elbow to L3 U/S interpreted by me (1pt. min.). @ -None done What testing was considered but not performed or refused? (CT, X-rays, U/S, labs)? Why? @ -None What meds were considered but not given or refused? Why? @ -None Did you discuss the management of the patient with other professionals (professionals i.e. , TRAVON, STAFF CONSULTANT, lab, RT, psych nurse, bilingual social worker, lodging facilities manager, teacher, traffic maintenance officer, case management manager)? Give summary @ -See above, case also discussed with practitioner Pawel Macias who agrees with lumbar corset and will follow-up in the office. Was smoking cessation discussed for >3mins.? @ -No Was critical care preformed (if so, how long)? @ -31 minutes critical care time Were there social determinants of health that impacted care today? How? (Homelessness, low income, unemployed, alcoholism, drug addiction, transp ortation, low edu. Level, literacy, decrease access to med. care, alf, rehab)? @ -No Was there de-escalation of care discussed even if they declined (Discuss DNR or withdrawal of care, Hospice)? DNR status @ -No What co-morbidities impacted this encounter? (DM, HTN, Smoking, COPD, CAD, Cancer, CVA, ARF, Chemo, Hep., AIDS, mental health diagnosis, sleep apnea, morbid obesity)? @ -Alcohol intoxication Was patient admitted / discharged? Hospital course, mention meds given and route, prescriptions, significant lab abnormalities, going to OR and other pertinent info. @ -Patient presents with fall. Patient does have transverse process fractures. Patient provided splint. Cervical spine cleared when patient is sober. Patient is updated on results and need for follow-up. Undiagnosed new problem with uncertain prognosis? @ -No Drug Therapy requiring intensive monitoring for toxicity (Heparin, Nitro, Insulin, Cardizem)? @ -No Were any procedures done? @ -No Diagnosis/symptom? @ -Fall, lumbar transverse process fracture, alcohol intoxication Acute, or Chronic, or Acute on Chronic? @ -Acute, acute, acute Uncomplicated (without systemic symptoms) or Complicated (systemic symptoms)? @ -Default Side effects of treatment? @ -No Exacerbation, Progression, or Severe Exacerbation? @ -No Poses a threat to life or bodily function? How? (Chest pain, USA, NC, pneumonia, PE, COPD, DKA, ARF, appy, cholecystitis, CVA, Diverticulitis, Homicidal, Suicidal, threat to staff... and all critical care pts) @ -No Upon discharge patient adds that he has had some intermittent weakness of his left arm over the past 2 days No weakness at this time. Case was again discussed with Dr. Buchanan who states patient can be admitted to medicine with orthopedic consult Case was discussed with practitioner Lesly Tim Covering Dr. Izaguirre, who will admit for hospital call - Lab Data Result diagrams: 11/10/24 12:51 11/10/24 12:51 Lab Results 11/10/24 11/10/24 11/10/24 Range/Units 12:50 12:51 12:51 WBC 8.21 (4.50-10.00) 10*3/uL RBC 4.36 L (4.40-5.60) 10*6/uL Hgb 12.9 L (13.0-17.0) g/dL Hct 37.9 L (39.6-50.0) % MCV 86.9 (80.0-97.0) fL MCH 29.6 (27.0-32.0) pg MCHC 34.0 (32.0-37.0) g/dL Plt Count 256 (140-440) 10*3/uL MPV 10.4 (9.5-12.2) fL Immature Gran % (Auto) 0.2 % Neutrophils % 50.7 % Lymphocytes % 32.3 % Monocytes % 11.1 % Eosinophils % 4.6 % Basophils % 1.1 % Immature Gran # 0.02 (0.00-0.04) 10*3/uL Neutrophils # 4.16 (1.80-7.70) 10*3/uL Lymphocytes # 2.65 (0.90-5.00) 10*3/uL Monocytes # 0.91 (0.20-1.00) 10*3/uL Eosinophils # 0.38 H (0.04-0.35) 10*3/uL Basophils # 0.09 (0.00-0.10) 10*3/uL PT 11.2 (10.0-12.5) sec INR 1.0 (<1.2) APTT 23.2 (22.0-30.0) sec Sodium (137-145) mmol/L Potassium (3.5-5.1) mmol/L Chloride (98-107) mmol/L Carbon Dioxide (22-30) mmol/L Anion Gap mmol/L BUN (9-20) mg/dL Creatinine (0.66-1.25) mg/dL Est GFR (CKD-EPI)AfAm (>60 ml/min/1.73 sqM) Est GFR (CKD-EPI)NonAf (>60 ml/min/1.73 sqM) Glucose (74-99) mg/dL POC Glucose (mg/dL) (70-110) mg/dL POC Glu [employer] Plasma Lactic Acid Virgilio (0.7-2.0) mmol/L Calcium (8.4-10.2) mg/dL Total Bilirubin (0.2-1.3) mg/dL AST (17-59) U/L ALT (4-49) U/L Alkaline Phosphatase (38-126) U/L Troponin I (0.000-0.034) ng/mL Total Protein (6.3-8.2) g/dL Albumin (3.5-5.0) g/dL Urine Opiates Screen (NotDetected) Ur Oxycodone Screen (NotDetected) Urine Methadone Screen (NotDetected) Ur Barbiturates Screen (NotDetected) U Tricyclic Antidepress (NotDetected) Ur Phencyclidine Scrn (NotDetected) Ur Amphetamines Screen (NotDetected) U Methamphetamines Scrn (NotDetected) U Benzodiazepines Scrn (NotDetected) Urine Cocaine Screen (NotDetected) U Marijuana (THC) Screen (NotDetected) Serum Alcohol mg/dL Blood Type Blood Type Confirm A Positive Blood Type Recheck Bld Type Recheck Status Antibody Screen Spec Expiration Date 11/10/24 11/10/24 11/10/24 Range/Units 12:51 12:51 12:51 WBC (4.50-10.00) 10*3/uL RBC (4.40-5.60) 10*6/uL Hgb (13.0-17.0) g/dL Hct (39.6-50.0) % MCV (80.0-97.0) fL MCH (27.0-32.0) pg MCHC (32.0-37.0) g/dL Plt Count (140-440) 10*3/uL MPV (9.5-12.2) fL Immature Gran % (Auto) % Neutrophils % % Lymphocytes % % Monocytes % % Eosinophils % % Basophils % % Immature Gran # (0.00-0.04) 10*3/uL Neutrophils # (1.80-7.70) 10*3/uL Lymphocytes # (0.90-5.00) 10*3/uL Monocytes # (0.20-1.00) 10*3/uL Eosinophils # (0.04-0.35) 10*3/uL Basophils # (0.00-0.10) 10*3/uL PT (10.0-12.5) sec INR (<1.2) APTT (22.0-30.0) sec Sodium 138 (137-145) mmol/L Potassium 4.0 (3.5-5.1) mmol/L Chloride 108 H (98-107) mmol/L Carbon Dioxide 23 (22-30) mmol/L Anion Gap 7 mmol/L BUN 20 (9-20) mg/dL Creatinine 1.03 (0.66-1.25) mg/dL Est GFR (CKD-EPI)AfAm 87 (>60 ml/min/1.73 sqM) Est GFR (CKD-EPI)NonAf 75 (>60 ml/min/1.73 sqM) Glucose 81 (74-99) mg/dL POC Glucose (mg/dL) (70-110) mg/dL POC Glu [employer] Plasma Lactic Acid Virgilio 1.2 (0.7-2.0) mmol/L Calcium 8.9 (8.4-10.2) mg/dL Total Bilirubin 0.5 (0.2-1.3) mg/dL AST 22 (17-59) U/L ALT 20 (4-49) U/L Alkaline Phosphatase 53 (38-126) U/L Troponin I <0.012 (0.000-0.034) ng/mL Total Protein 5.7 L (6.3-8.2) g/dL Albumin 3.3 L (3.5-5.0) g/dL Urine Opiates Screen (NotDetected) Ur Oxycodone Screen (NotDetected) Urine Methadone Screen (NotDetected) Ur Barbiturates Screen (NotDetected) U Tricyclic Antidepress (NotDetected) Ur Phencyclidine Scrn (NotDetected) Ur Amphetamines Screen (NotDetected) U Methamphetamines Scrn (NotDetected) U Benzodiazepines Scrn (NotDetected) Urine Cocaine Screen (NotDetected) U Marijuana (THC) Screen (NotDetected) Serum Alcohol 175 mg/dL Blood Type Blood Type Confirm Blood Type Recheck Bld Type Recheck Status Antibody Screen Spec Expiration Date 05/06/2511/10/24 11/10/24 Range/Units 12:55 14:00 15:11 WBC (4.50-10.00) 10*3/uL RBC (4.40-5.60) 10*6/uL Hgb (13.0-17.0) g/dL Hct (39.6-50.0) % MCV (80.0-97.0) fL MCH (27.0-32.0) pg MCHC (32.0-37.0) g/dL Plt Count (140-440) 10*3/uL MPV (9.5-12.2) fL Immature Gran % (Auto) % Neutrophils % % Lymphocytes % % Monocytes % % Eosinophils % % Basophils % % Immature Gran # (0.00-0.04) 10*3/uL Neutrophils # (1.80-7.70) 10*3/uL Lymphocytes # (0.90-5.00) 10*3/uL Monocytes # (0.20-1.00) 10*3/uL Eosinophils # (0.04-0.35) 10*3/uL Basophils # (0.00-0.10) 10*3/uL PT (10.0-12.5) sec INR (<1.2) APTT (22.0-30.0) sec Sodium (137-145) mmol/L Potassium (3.5-5.1) mmol/L Chloride (98-107) mmol/L Carbon Dioxide (22-30) mmol/L Anion Gap mmol/L BUN (9-20) mg/dL Creatinine (0.66-1.25) mg/dL Est GFR (CKD-EPI)AfAm (>60 ml/min/1.73 sqM) Est GFR (CKD-EPI)NonAf (>60 ml/min/1.73 sqM) Glucose (74-99) mg/dL POC Glucose (mg/dL) 82 (70-110) mg/dL POC Glu [employer] [place] Plasma Lactic Acid Virgilio (0.7-2.0) mmol/L Calcium (8.4-10.2) mg/dL Total Bilirubin (0.2-1.3) mg/dL AST (17-59) U/L ALT (4-49) U/L Alkaline Phosphatase (38-126) U/L Troponin I (0.000-0.034) ng/mL Total Protein (6.3-8.2) g/dL Albumin (3.5-5.0) g/dL Urine Opiates Screen Not Detected (NotDetected) Ur Oxycodone Screen Not Detected (NotDetected) Urine Methadone Screen Not Detected (NotDetected) Ur Barbiturates Screen Not Detected (NotDetected) U Tricyclic Antidepress Not Detected (NotDetected) Ur Phencyclidine Scrn Not Detected (NotDetected) Ur Amphetamines Screen Not Detected (NotDetected) U Methamphetamines Scrn Not Detected (NotDetected) U Benzodiazepines Scrn Not Detected (NotDetected) Urine Cocaine Screen Not Detected (NotDetected) U Marijuana (THC) Screen Not Detected (NotDetected) Serum Alcohol mg/dL Blood Type A Positive Blood Type Confirm Blood Type Recheck No Previous Record Bld Type Recheck Status CABO Indicated Antibody Screen NEGATIVE Spec Expiration Date 11/13/20242354 Disposition Clinical Impression: Lumbar transverse process fracture, Fall Disposition: ADMITTED IP TO THIS [facility] Condition: Stable Instructions (If sedation given, give patient instructions): Alcohol Intoxication (ED), Fall Prevention (ED), Transverse Process Fracture (ED) Additional Instructions: Please follow-up with orthopedics and primary care physician in the next day or 2 for recheck. Discontinue alcohol use, especially when on the roof. With r eturn for increased pain, weakness, confusion, difficulty breathing, worsening or changing symptoms or other concerns. Prescription for lumbar corset provided. This can be obtained at [employer]. Is patient prescribed a controlled substance at d/c from ED?: No Referrals: Nonstaff,Physician [Primary Care Provider] - 1-2 days Dominic Martinez DO [Doctor of Osteopathic Medicine] - 1-2 days Forms: [facility] PCPs
[2024-11-10 13:04] LABS: Basophils # (A) 0.09 10*3/uL (0.00-0.10); Basophils % (A) 1.1 %; Eosinophils # (A) 0.38 10*3/uL (0.04-0.35); Eosinophils % (A) 4.6 %; HCT 37.9 % (39.6-50.0); HGB 12.9 g/dL (13.0-17.0); Lymphocytes # (A) 2.65 10*3/uL (0.90-5.00); Lymphocytes % (A) 32.3 %; MCH 29.6 pg (27.0-32.0); MCV 86.9 fL (80.0-97.0); Mean Platelet Volume 10.4 fL (9.5-12.2); Monocytes # (A) 0.91 10*3/uL (0.20-1.00); Monocytes % (A) 11.1 %; Neutrophils # (A) 4.16 10*3/uL (1.80-7.70); Neutrophils % (A) 50.7 %; Platelet Count 256 10*3/uL (140-440); RBC 4.36 10*6/uL (4.40-5.60); RDW 13.8 % (11.5-14.5); WBC 8.21 10*3/uL (4.50-10.00)
[2024-11-10 13:16] LABS: ALT 20 U/L (4-49); AST 22 U/L (17-59); African American GFR (CKD) 87 (>60 ml/min/1.73 sqM); Albumin 3.3 g/dL (3.5-5.0); Alkaline Phosphatase 53 U/L (38-126); Anion Gap 7 mmol/L; Blood Urea Nitrogen 20 mg/dL (9-20); Calcium 8.9 mg/dL (8.4-10.2); Carbon Dioxide 23 mmol/L (22-30); Chloride 108 mmol/L (98-107); Glucose 81 mg/dL (74-99); Non-African American GFR(CKD) 75 (>60 ml/min/1.73 sqM); Sodium 138 mmol/L (137-145); Total Bilirubin 0.5 mg/dL (0.2-1.3); Total Protein 5.7 g/dL (6.3-8.2)
--- NOTE | 2024-11-10 13:18 | XR ---
EXAMINATION TYPE: XR chest 1V portable DATE OF EXAM: 11/10/2024 12:57 PM COMPARISON: Chest radiographs from 10/31/2024. CLINICAL INDICATION: Male, 69 years old with history of trauma; pain. TECHNIQUE: XR chest 1V portable Frontal view of the chest. FINDINGS: Lungs/Pleura: There is no evidence of pleural effusion, focal consolidation, or pneumothorax. Pulmonary vascularity: Unremarkable. Heart/mediastinum: Cardiomediastinal silhouette is unremarkable. Musculoskeletal: No acute osseous pathology. IMPRESSION: 1. No acute cardiopulmonary disease/process. 2. Elevated right diaphragm correlate for phrenic nerve injury. [facility], , 11/10/2024 1:16 PM
--- NOTE | 2024-11-10 13:20 | XR ---
EXAMINATION TYPE: XR pelvis AP view DATE OF EXAM: 11/10/2024 12:57 PM COMPARISON: None. CLINICAL INDICATION: Male, 69 years old with history of Trauma; pain TECHNIQUE: XR pelvis AP view, examined in a single projection. FINDINGS: There is no evidence of fracture or dislocation. There is no soft tissue abnormality. No a bnormal calcifications are present. The spine appears intact. The hips appear intact. Osteophyte form ation of the superior acetabulum bilaterally with mild joint space narrowing. IMPRESSION: 1. No acute osseous pathology. 2. Mild degeneration changes of the hip. [facility], , 11/10/2024 1:17 PM
[2024-11-10 13:30] LABS: Partial Thromboplastin Time 23.2 sec (22.0-30.0); Prothrombin Time 11.2 sec (10.0-12.5)
[2024-11-10 13:34] LABS: Alcohol 175 mg/dL
--- NOTE | 2024-11-10 13:37 | CT ---
EXAMINATION TYPE: CT brain cspine wo con CT DLP: 3044.6 mGycm, Automated exposure control for dose reduction was used. DATE OF EXAM: 11/10/2024 1:27 PM COMPARISON: CT brain 10/31/2024, CTA head and neck 10/31/2024 CLINICAL INDICATION:Male, 69 years old with history of trauma; Fall P2T, pain TECHNIQUE: Brain: Multiple axial CT images of the brain were obtained without IV contrast. Cspine: Axial CT images from the skull base to the inferior aspect of T2 we obtained without intraven ous contrast. Coronal and sagittal reformatted images were also reviewed. FINDINGS: Brain: Extra-axial spaces: No abnormal extra-axial fluid collections. Ventricular system: Within normal limits Cerebral parenchyma: No acute intraparenchymal hemorrhage or mass effect. Remote ischemic injury wit hin the left parietal lobe posteriorly. The leos-white junction is well differentiated. Scattered hyp oattenuating areas are seen within the periventricular white matter. Cerebellum: Remote ischemic injury within the right cerebellum. Mass effect: No evidence of midline shift. Intracranial vasculature: Atherosclerotic calcifications of the intracranial vessels. Soft tissues: Normal. Calvarium/osseous structures: No depressed skull fracture. Paranasal sinuses and mastoid air cells: The mastoid air cells are clear. Minimal mucosal thickening of the right maxillary sinus. Minimal mucosal thickening of the right sphenoid sinus. The remaining p aranasal sinuses are clear. Nasal septal deviation to the left with spurring. Visualized orbits: Orbital contents are intact. Cervical spine: Fracture: None. Osseous structures: Multilevel degenerative disc disease changes with endplate spurring and osteophyt e formation. Vertebral alignment: Within normal limits. Spinal canal/Neural Foramina: Disc osteophyte complexes at C5-C6 and C6-C7 with at least mild spinal canal stenosis. Facet joint uncovertebral joint arthropathy scattered throughout the cervical spine w ith varying degrees of neural foraminal stenosis. Neck soft tissues: Prevertebral soft tissues are within normal limits. Other: The airway is patent. The lung apices are clear. Bilateral carotid bulb calcifications. IMPRESSION: 1. No acute intracranial process. 2. Nonspecific white matter changes, likely secondary to chronic small vessel ischemic disease. 3. Remote ischemic injuries within the left parietal lobe and right cerebellum. 4. No evidence of cervical spine fracture. 5. Mild to moderate multilevel degenerative disc disease. [facility], , 11/10/2024 1:35 PM
--- NOTE | 2024-11-10 13:47 | CT ---
EXAMINATION TYPE: CT ChestAbdPelvis w con CT DLP: 3044.6 mGycm, Automated exposure control for dose reduction was used. DATE OF EXAM: 11/10/2024 1:34 PM COMPARISON: Chest and pelvic radiographs of the same date. CLINICAL INDICATION:Male, 69 years old with history of trauma; PHH, pain Technique: Multiple axial images of the chest, abdomen, and pelvis were obtained following the intrav enous administration of 100 mL Isovue-300. Two-dimensional coronal and sagittal reconstructions were obtained. Findings: CHEST: LUNGS/ PLEURA: No pleural effusion, pneumothorax, focal consolidation. No gross evidence for suspicio us nodule or mass. Elevation of the right hemidiaphragm. AIRWAY: Patent and unremarkable.. HEART: Not enlarged. . No pericardial effusion. No significant coronary artery calcifications. MEDIASTINUM: No evidence of adenopathy. No evidence for mediastinal hematoma. VASCULATURE: No aortic aneurysm. MUSCULOSKELETAL: No acute osseous abnormalities. Mild multilevel degenerative disc disease. SOFT TISSUES/LYMPH NODES: Unremarkable. LOWER NECK: No significant findings. ABDOMEN: ABDOMEN LIVER: Unremarkable GALLBLADDER AND BILE DUCTS: Unremarkable. PANCREAS: Unremarkable. SPLEEN: Unremarkable. ADRENAL GLANDS: Unremarkable. KIDNEYS AND URETERS: No evidence of hydronephrosis or renal calculus. The kidneys enhance symmetrical ly. Right renal exophytic 4.0 cm simple appearing cyst. No follow-up recommended. Contrast is demonst rated within both collecting systems and throughout both ureters on the delayed phase without evidenc e for extravasation. PELVIS BLADDER: Unremarkable REPRODUCTIVE: Unremarkable. ABDOMEN & PELVIS STOMACH AND BOWEL: Stomach and duodenum are unremarkable. Scattered distal colonic diverticula withou t evidence for acute diverticulitis. No focal bowel wall thickening or surrounding inflammatory gómez es identified. No evidence of bowel obstruction. PERITONEUM: No evidence of pneumoperitoneum or free fluid. VASCULATURE: Mild atherosclerotic calcifications are present throughout the abdominal aorta and its b ranches. No abdominal aortic aneurysm. Few right-sided pelvic phleboliths. MUSCULOSKELETAL: Acute appearing nondisplaced fracture of the right L2 transverse process. Acute mode rately displaced fracture of the right L3 transverse process. Degenerative changes of bilateral SI santi ints with anterior bridging. Mild multilevel degenerative disc disease. LYMPH NODES: No evidence for lymphadenopathy. SOFT TISSUE/ABDOMINAL WALL: Unremarkable IMPRESSION: 1. Acute right L2 and L3 transverse process fractures. No other traumatic process within the chest, abdomen or pelvis. 2. Colonic diverticulosis without evidence for acute diverticulitis. [facility], , 11/10/2024 1:44 PM
--- NOTE | 2024-11-10 14:18 | XR ---
EXAMINATION TYPE: XR foot complete LT DATE OF EXAM: 11/10/2024 1:30 PM COMPARISON: None CLINICAL INDICATION: Male, 69 years old with history of trauma; PHH, pain TECHNIQUE: XR foot complete LT examined in the AP, oblique, and lateral projections. FINDINGS: No evidence of any acute osseous pathology. Multifocal degeneration changes throughout the joints of the foot with osteophyte formation and joint space narrowing. Degeneration changes of the first digi t metatarsophalangeal joint with mild joint space narrowing and osteophyte formation. Calcaneal Achil les enthesophyte. IMPRESSION: 1. No evidence of acute fracture. 2. Multifocal degeneration changes throughout the joints of the foot. [facility], , 11/10/2024 2:16 PM
[2024-11-10 14:31] LABS: Amphetamine Screen,Urine Not Detected (NotDetected); Barbiturate Screen,Urine Not Detected (NotDetected); Benzodiazepines Screen,Urine Not Detected (NotDetected); Cocaine Screen,Urine Not Detected (NotDetected); Methadone Screen, Urine Not Detected (NotDetected); Opiate Screen,Urine Not Detected (NotDetected); Oxycodone Screen, Urine Not Detected (NotDetected); Phencyclidine Screen,Urine Not Detected (NotDetected); Tricyclic Antidepressant,Urine Not Detected (NotDetected); Urn Cannabinoid Scrn Not Detected (NotDetected)
[2024-11-10 15:13] LABS: Glucose,Whole Blood 82 mg/dL (70-110)
[2024-11-10] MEDS: SODIUM CHLORIDE 0.9% 1,000 ML IV SCH (18:47)
[2024-11-10] MEDS: MORPHINE SULFATE 4 MG/ML SYRINGE IVP PRN (18:53)
[2024-11-10] MEDS: GABAPENTIN 300 MG CAP PO SCH (23:24)
[2024-11-10] MEDS: QUEtiapine 200 MG TAB PO SCH (23:25)
[2024-11-11 03:47] LABS: Chol/HDL Ratio 2.65 Ratio
[2024-11-11 04:44] LABS: LDL Cholesterol,Calculated 63.3 mg/dL (0.0-131.0)
[2024-11-11] MEDS: PANTOPRAZOLE 40 MG TABLET PO SCH (06:33)
[2024-11-11] MEDS: SERTRALINE 50 MG TAB PO SCH (08:41)
--- NOTE | 2024-11-11 11:34 | P.CNOR ---
History of Present Illness - [facility] Consult date: 11/11/24 Requesting physician: Weston Aragon Consult reason: other (lumbar transverse) History of present illness: Patient is a 69-year-old male who presents to the emergency department yesterday status post fall. Patient was on his roof cleaning out his gutters when he fell. Patient cannot recall much of the fall very well and is unsure if he struck his head or lost consciousness. Patient mentions he had been drinking alcohol and stated it was 1 or 2 drinks. Patient mentioned he did have some neck pain and right heel pain since the fall. Patient also mentions some left- sided rib pain. Patient does have a history of stroke affecting the left upper extremity. EMS did bring patient to the hospital. Patient was admitted on 6 N. for TIA. Ortho-spine consulted due to L2 and L3 transverse process fractures in the spine. Patient was seen at bedside this morning on 6 N. lying in the s emirecumbent position. Patient states he has not had any previous spine surgeries. Patient mostly complaining of pain on the plantar aspect of the right foot and left-sided rib pain. Patient does mention some low back pain at this time but it is not as big of an issue in regards to pain as the right foot is. X-rays of the right foot are negative for any fractures. X-rays from that CT of the abdomen pelvis do reveal nondisplaced right-sided L2 and L3 transverse process fractures. Patient says he does have a back brace at home which she has used previously and says that this may help with his back. Patient mentions he also recently became a patient of Dr. Webster but does not receive any pain medication from him. Patient denies any lower extremity radiculopathy. Patient denies any loss of bowel/bladder control. Patient states he normally ambulates at home independently but does sometimes use a cane to aid in ambulation Past Medical History Past Medical History: COPD, CVA/TIA, Myocardial Infarction ([place]), Neurologic Disorder Additional Past Medical History / Comment(s): [place] Parkinsons White symdrome, vertigo, spinal injuries, Last Myocardial Infarction Date:: 2011 History of Any Multi-Drug Resistant Organisms: None Reported Past Surgical History: Cardiac Ablation Additional Past Surgical History / Comment(s): CTS surguries Past Anesthesia/Blood Transfusion Reactions: No Reported Reaction Past Psychological History: ADD/ADHD, Anxiety, Bipolar, Depression, PTSD, Schizophrenia Smoking Status: Vaper Past Alcohol Use History: None Reported Past Drug Use History: None Reported Medications and Allergies Home Medications Medication Instructions Recorded Confirmed Type Gabapentin 600 mg PO TID 10/31/24 11/10/24 History QUEtiapine FUMARATE [SEROquel XR] 400 mg PO HS 10/31/24 11/10/24 History Sertraline [Zoloft] 50 mg PO DAILY 10/31/24 11/10/24 History Allergies Allergy/AdvReac Type Severity Reaction Status Date / Time acetaminophen [From Tylenol] AdvReac Nausea Verified 11/10/24 15:33 ibuprofen [From Motrin] AdvReac Vomiting Verified 11/10/24 15:33 indomethacin [From Indocin] AdvReac Nausea Verified 11/10/24 15:33 propoxyphene [From Darvon] AdvReac Nausea Verified 11/10/24 15:33 Physical Examination Inspection: There is a fair amount of swelling diffusely present throughout the right foot. There is some erythema present as well along the plantar aspect of the right foot. Negative for any punctate lesions. Negative for any open fractures, significant ecchymosis or open wounds on exam. Sensation: Equal, symmetric, by intact throughout the lower extremities on exam. Patient does have limited sensation in the left upper extremity secondary to previous stroke. Palpation: Significant tenderness to patient over the plantar aspect of the right foot. Nontender to palpation throughout the right medial malleolus and lateral malleolus on exam. There is some generalized tenderness to patient along the lumbar spine in the paravertebral regions. Also some left-sided rib cage pain. Range of motion: Patient does have limited range of motion in the right ankle secondary to referred pain in the right foot. Patient does have full range of motion throughout rest of lower extremities on exam. Patient does have good range of motion throughout bilateral upper extremities on exam. Motor: 4+/5 in all major motor groups in right upper extremity and left lower extremity on exam. 3/5 in resisted right ankle dorsi/plantarflexion. 3+/5 in left upper extremity exam. Neurovascular: DP pulses palpable bilaterally. Cap refill under 3 seconds in digits of upper extremities. Special test: Negative Dat bilaterally. Negative clonus bilaterally. Negative Narendra bilaterally. Results - Labs Labs: Abnormal Lab Results - Last 24 Hours (Table) 11/10/24 11/10/24 Range/Units 12:51 12:51 RBC 4.36 L (4.40-5.60) 10*6/uL Hgb 12.9 L (13.0-17.0) g/dL Hct 37.9 L (39.6-50.0) % Eosinophils # 0.38 H (0.04-0.35) 10*3/uL Chloride 108 H (98-107) mmol/L Total Protein 5.7 L (6.3-8.2) g/dL Albumin 3.3 L (3.5-5.0) g/dL H & H 11/10/24 Range/Units 12:51 Hgb 12.9 L (13.0-17.0) g/dL Hct 37.9 L (39.6-50.0) % Coagulation 11/10/24 Range/Units 12:51 INR 1.0 (<1.2) Result Diagrams: 11/10/24 12:51 11/10/24 12:51 - Diagnostic results Comments: CT scan of the abdomen pelvis does reveal right-sided L2 and L3 transverse process fractures. Ankle/Foot x-ray: report reviewed, image reviewed (X-ray of the right foot is negative for any fractures. Evidence for some first metatarsal phalangeal joint osteoarthritis. Positive for some spurring along the Achilles tendon insertion on the calcaneus) Assessment and Plan Assessment: 1. L2 and L3 right-sided transverse process fracture; right foot pain; left- sided rib pain; history of stroke Plan: 1. L2 and L3 right-sided transverse process fracture; right foot pain; left- sided rib pain; history of stroke -I did discuss the findings of the imaging with patient at bedside this morning. There is no emergent/urgent orthopedic spine intervention needed. Fractures at L2 and L3 transverse processes on the right side are nondisplaced. I did recommend conservative measures with the use of a back brace. Patient says he does have a back brace at home he can use. In regards to the right foot. Recommend conservative measures with PT and OT apply ice/heat to the area as needed. Perform gentle range of motion exercises of the right ankle. Patient may weight-bear as tolerated with walker as needed. Patient may benefit from subacute rehab on discharge from the hospital, if patient is having a very difficult time with ADLs. Patient is stable from orthopedic spine standpoint for discharge. At this time, orthopedics is signing off. Recommend patient to follow-up with foot/ankle surgeon if he continues to have issues with the right foot. Follow-up with Dr. Martinez for spine as needed. Please do not hesitate to contact us for any further questions. 2. Appreciate medical management 3. Pain management - gabapentin; tylenol 4. DVT prophylaxis - mechanical 5. GI prophylaxis - protonix 6. PT/OT -weightbearing as tolerated with walker/cane 7. Encourage incentive spirometer use 8. Appreciate consult Time with Patient: Less than 30
--- NOTE | 2024-11-12 10:15 | P.CNNES ---
History of Present Illness Consult date: 11/11/24 Requesting physician: Weston Aragon Reason for Consult: eval for tia History of Present Illness: Patient is a 69-year-old right-handed male with previous history of CVA, minimal deficits, recently was admitted to the hospital, signed out AGAINST MEDICAL ADVICE, now came to the hospital by ambulance yesterday at 12:35 PM after he suffered from a fall. Patient states that he signed out AGAINST MEDICAL ADVICE on last admission because he had some financial problems at home. He states that yesterday he woke up at 5:30 in the morning, and went to work. He states that he had drank 1 glass of whiskey with Pepsi at 2 AM. 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 His [id number] noticed that his face appeared somewhat pale and patient fell off the truck, face forward, hurting his left rib cage. He did pass out, and woke up to EMS talking to him. He did not know where he was at and had some memory loss for that time. His right ankle also is very swollen and painful. Patient states that his whole left arm was "paralyzed" for 3 days. Patient complains of lower back pain from disc disease. His left foot is numb from neuropathy. EMS flowsheet not available in the chart. Vital signs on arrival blood pressure 97/86, pulse rate 71 temperature 98.0. Blood test shows normal WBC hemoglobin 12.9, platelets are normal. PT PTT normal, CMP normal. Hepatic panel normal. Urine drug screen normal. Blood alcohol level 175. Chest x-ray showed no acute cardiopulmonary process. Elevated right diaphragm correlate for phrenic nerve injury. Pelvic x-ray showed no acute osseous pathology. Mild degeneration changes of the hip. EKG showed sinus rhythm. Foot x-ray showed no evidence of acute fracture. Multifocal degeneration changes throughout the joints of the foot. CT head showed no acute intracranial process. Nonspecific white matter changes, likely secondary to chronic small vessel ischemic disease. Remote ischemic injuries within the left parietal lobe and right cerebellum. I personally reviewed CT head, agree with the findings. CT of the cervical spine showed no evidence of cervical spine fracture. Mild to moderate multilevel degenerative disc disease. CT of chest abdomen pelvis showed acute right L2 and L3 transverse process fractures. No other traumatic process within the chest, abdomen or pelvis. Patient has been seen by myself on 11/01/2024 for possible CVA, manifesting with left arm numbness. MRI of the brain was recommended. Patient apparently left hospital AGAINST MEDICAL ADVICE. Patient's home medication sertraline 50 mg, Seroquel 400 mg at bedtime and gabapentin 600 mg 3 times daily. Patient does not take any antiplatelet medication at home. Patient states he lives with 2 roommates. He vapes nicotine, does not do any tobacco otherwise, no marijuana or drugs. He drinks alcohol very little. He admits to having hypertension but no diabetes. Patient states he had history of a stroke 2 years ago, which affected his left side. He has residual stiffness in the left arm, but nothing in the leg. He states that his left arm symptoms got worse with this current event. Review of Systems All pertinent positive and negative review of systems mentioned in the HPI, otherwise unremarkable. Past Medical History Past Medical History: COPD, CVA/TIA, Myocardial Infarction ([place]), Neurologic Disorder Additional Past Medical History / Comment(s): [place] Parkinsons White symdrome, vertigo, spinal injuries, Last Myocardial Infarction Date:: 2011 History of Any Multi-Drug Resistant Organisms: None Reported Past Surgical History: Cardiac Ablation Additional Past Surgical History / Comment(s): CTS surguries Past Anesthesia/Blood Transfusion Reactions: No Reported Reaction Past Psychological History: ADD/ADHD, Anxiety, Bipolar, Depression, PTSD, Schizophrenia Smoking Status: Vaper Past Alcohol Use History: None Reported Past Drug Use History: None Reported Medications and Allergies Home Medications Medication Instructions Recorded Confirmed Type Gabapentin 600 mg PO TID 10/31/24 11/10/24 History QUEtiapine FUMARATE [SEROquel XR] 400 mg PO HS 10/31/24 11/10/24 History Sertraline [Zoloft] 50 mg PO DAILY 10/31/24 11/10/24 History Allergies Allergy/AdvReac Type Severity Reaction Status Date / Time acetaminophen [From Tylenol] AdvReac Nausea Verified 11/10/24 15:33 ibuprofen [From Motrin] AdvReac Vomiting Verified 11/10/24 15:33 indomethacin [From Indocin] AdvReac Nausea Verified 11/10/24 15:33 propoxyphene [From Darvon] AdvReac Nausea Verified 11/10/24 15:33 Physical Examination - Vital Signs Vital Signs: Vital Signs Temp Pulse Pulse Resp BP BP BP 11/11/24 07:10 98.2 F 71 16 128/65 11/11/24 03:32 114/72 11/11/24 02:00 98.0 F 81 18 11/10/24 22:16 97.8 F 89 18 145/88 11/10/24 21:35 98.9 F 92 17 138/83 11/10/24 18:48 83 20 135/87 11/10/24 17:45 75 14 110/74 Pulse Ox 11/11/24 07:10 97 11/11/24 03:32 11/11/24 02:00 98 11/10/24 22:16 97 11/10/24 21:35 97 11/10/24 18:48 99 11/10/24 17:45 95 Intake and Output 11/10/24 11/11/24 11/11/24 22:59 06:59 14:59 Intake Total 240 Output Total 400 180 Balance -400 60 Intake: Oral 240 Output: Urine 400 180 Other: Voiding Method Urinal # Bowel Movements 1 Weight 81.647 kg Patient is an elderly male, in no acute distress. Patient is somewhat somnolent, but does become alert awake oriented to time place and person. Speech and language functions are normal. Patient can name and repeat very well. No aphasia or dysarthria. Attention, concentration and fund of knowledge is adequate. Detailed cognitive function testing deferred. On cranial nerve examination, pupils are equal, round and reacting to light, visual tee are full on confrontation, with no neglect on double simultaneous stimulation. Extraocular muscles are intact with no nystagmus. Face is symmetric, tongue protrudes to the midline. Palatal elevation and sensation normal, hearing and shoulder shrug normal, facial sensation normal. On muscle strength testing, on checking pronator drift, patient has myoclonic jerks of outstretched hands bilaterally. However no pronator drift. The strength is normal in arms and legs distally and proximally, except left residential recycle driver is about 4, normal on the right. Deep tendon reflexes are (right/left) biceps 1/2, brachioradialis 1/2, knees 1+/2+, ankles 1/1 plantars are flat. Sensory to touch is equal with no neglect on double simultaneous stimulation. Cerebellar function showed possible ataxia for [id number] testing on the left. No definitive ataxia for [id number] testing on either side. Tone and bulk of muscles normal. Gait deferred.. On general examination, there is no carotid bruit or murmur, S1-S2 audible. Chest is clear on consultation. Abdomen is soft nontender. No organomegaly, gokul wel sounds present. Peripheral pulses are present. No peripheral edema. Results - Laboratory Findings CBC and BMP: 11/10/24 12:51 11/10/24 12:51 Abnormal Lab Findings: Abnormal Labs 11/10/24 11/10/24 12:51 12:51 RBC 4.36 L Hgb 12.9 L Hct 37.9 L Eosinophils # 0.38 H Chloride 108 H Total Protein 5.7 L Albumin 3.3 L Assessment and Plan Assessment: * Syncopal spell, while sitting on the back of the truck. This could be related to alcohol intoxication. Patient's blood alcohol level was 175 on arrival. * Recent history of left arm numbness, rule out subacute stroke. * History of CVA with residual left arm stiffness. * Left ICA stenosis 43%, per CTA * Metabolic encephalopathy, myoclonic jerks, unclear cause. * Hypertension * Vapes nicotine Plan: Check MRI of the brain without contrast, evaluate for acute CVA EEG rule out any epileptiform activity. 2-D echo 11/01/2024 revealed normal LV size and systolic function with EF 55-60%. No obvious regional wall motion abnormalities. Mild left atrial dilation. Negative agitated saline bubble study for [id number] shunt. No significant valvular abnormalities. CTA of head and neck 10/31/2024: Revealed 43% stenosis of the proximal left ICA due to calcified and noncalcified plaque. There is tortuosity of the remainder of the artery. No evidence of dissection of the cervical internal carotid arteries or vertebral arteries. No evidence of significant stenosis in the carotid evaluation. No evidence of intracranial high-grade stenosis or intracranial aneurysm. New scattered groundglass opacities in the right lung apex, correlate for atypical pneumonia. Fasting a.m. Lipid panel with cholesterol 145, LDL 63, HDL 54 and triglycerides 135. We will start Lipitor 20 mg daily. Hemoglobin A1c 5.9 on 11/01/2024 Optimize control of blood pressure. Urine drug screen negative. Start aspirin 81 mg daily. Neuro checks every 2 hours Telemetry monitoring rule out any arrhythmia PT, OT, speech therapy Recommend abstaining from alcoholism. DVT prophylaxis: Heparin 5000 units subcu every 12 hours Neurology will follow. Thank you for the consult.
[2024-11-12] MEDS: HEPARIN SODIUM,PORCINE 5,000 UNIT/ML 1 ML VIAL SQ SCH (11:30)
[2024-11-12] MEDS: ASPIRIN 81 MG PO SCH (11:30)
--- NOTE | 2024-11-12 12:00 | P.HPIM ---
History of Present Illness H&P Date: 11/11/24 Chief Complaint: Post fall Patient is a 69-year-old male with a known history of CVA/TIA, chronic vertigo, Solpc-Yxsmldvgk-Jaxdq syndrome, with history of ablation, COPD, ADD/ADHD, anxiety bipolar depression PTSD and schizophrenia and vaping history presents to ER status post fall. Patient was on getting into the back of the truck when he had a fall. Does not recall the fall. Patient is current was there who got him up. Does not recall whether he hit his head or not. Was complaining of right foot pain and left lower rib pain. Denies any focal weakness. Patient admits to drinking alcohol 1-2 drinks prior to the episode. Patient was intoxicated on admission. Laboratory data showed WBC 8.2 hemoglobin 12.9 and platelets 256 sodium 138 potassium 4.0 chloride 108 bicarb is 23 BUN 20 and creatinine 1.03 and blood sugar 75 liver enzymes are not elevated. LDL 63.3 and serum alcohol level was 175. UDS is negative. Chest x-ray showed no acute cardiopulmonary process. Elevated right diaphragm correlate for phrenic nerve injury. X-ray pelvis showed no acute osseous pathology. Mild degenerative changes of the hip. CT head and cervical spine showed no acute intracranial process. Nonspecific white matter changes likely secondary to chronic small vessel ischemic disease. Remote ischemic injuries within the parietal lobe and right cerebellum. No evidence of cervical spine fracture. Mild to moderate multilevel degenerative disc disease. CT chest and abdomen acute right L2 and L3 transverse process fractures. No other traumatic process within the chest or abdominal pelvis. Colonic diverticulosis without evidence for acute diverticulitis. Foot x-ray showed no acute fracture. Multifocal degenerative changes throughout the joints of the foot. Review of Systems Constitutional: Patient denies any fever or chills . No generalized weakness or weight loss. Abdomen: Patient denied nausea vomiting and diarrhea and abdominal pain. Cardiovascular: Patient denies any chest pain or short of breath no palpitations. Respiratory: patient denied any cough or sputum production. No shortness of breath Neurologic: Patient denied any numbness or tingling. no headache. Musculoskeletal: Patient denies any complaints of joint swelling or deformity. Right foot pain and left lower leg chest/rib pain Skin: Negative Psychiatric: Negative Endocrine: No heat or cold intolerance. No recent weight gain. Genitourinary: No dysuria or hematuria. All other 14 point ROS negative except the above Past Medical History Past Medical History: COPD, CVA/TIA, Myocardial Infarction ([place]), Neurologic Diso rder Additional Past Medical History / Comment(s): [place] Parkinsons White symdrome, vertigo, spinal injuries, Last Myocardial Infarction Date:: 2011 History of Any Multi-Drug Resistant Organisms: None Reported Past Surgical History: Cardiac Ablation Additional Past Surgical History / Comment(s): CTS surguries Past Anesthesia/Blood Transfusion Reactions: No Reported Reaction Past Psychological History: ADD/ADHD, Anxiety, Bipolar, Depression, PTSD, Schizophrenia Smoking Status: Vaper Past Alcohol Use History: None Reported Past Drug Use History: None Reported Medications and Allergies Home Medications Medication Instructions Recorded Confirmed Type Gabapentin 600 mg PO TID 10/31/24 11/10/24 History QUEtiapine FUMARATE [SEROquel XR] 400 mg PO HS 10/31/24 11/10/24 History Sertraline [Zoloft] 50 mg PO DAILY 10/31/24 11/10/24 History Allergies Allergy/AdvReac Type Severity Reaction Status Date / Time acetaminophen [From Tylenol] AdvReac Nausea Verified 11/10/24 15:33 ibuprofen [From Motrin] AdvReac Vomiting Verified 11/10/24 15:33 indomethacin [From Indocin] AdvReac Nausea Verified 11/10/24 15:33 propoxyphene [From Darvon] AdvReac Nausea Verified 11/10/24 15:33 Physical Exam Vitals: Vital Signs Temp Pulse Pulse Resp BP BP BP 11/11/24 07:10 98.2 F 71 16 128/65 11/11/24 03:32 114/72 11/11/24 02:00 98.0 F 81 18 11/10/24 22:16 97.8 F 89 18 145/88 11/10/24 21:35 98.9 F 92 17 138/83 11/10/24 18:48 83 20 135/87 11/10/24 17:45 75 14 110/74 11/10/24 12:56 98.0 F 11/10/24 12:38 71 18 97/86 Pulse Ox 11/11/24 07:10 97 11/11/24 03:32 11/11/24 02:00 98 11/10/24 22:16 97 11/10/24 21:35 97 11/10/24 18:48 99 11/10/24 17:45 95 11/10/24 12:56 11/10/24 12:38 96 Intake and Output 11/10/24 11/11/24 11/11/24 22:59 06:59 14:59 Output Total 400 180 Balance -400 -180 Output: Urine 400 180 Other: Voiding Method Urinal # Bowel Movements 1 Weight 81.647 kg PHYSICAL EXAMINATION: Patient is lying in the bed comfortably, no acute distress, awake alert and oriented.. HEENT: Normocephalic. Neck is supple. Pupils reactive. Nostrils clear. Oral cavity is moist. Neck reveals no JVD, carotid bruits, or thyromegaly. CHEST EXAMINATION: Trachea is central. Symmetrical expansion. Lung tee clear to auscultation and percussion. CARDIAC: Normal S1, S2 with no gallops. No murmurs ABDOMEN: Soft. Bowel sounds normal. No organomegaly. No abdominal bruits. Extremities: reveal no edema. No clubbing or cyanosis Neurologically awake, alert, oriented x3 with well-coordinated movements. No focal deficits noted Skin: No rash or skin lesions. Psychiatric: Coperative. Nonsuicidal Musculoskeletal: No joint swelling or deformity. Normal range of motion. Results CBC & Chem 7: 11/10/24 12:51 11/10/24 12:51 Labs: Abnormal Lab Results - Last 24 Hours (Table) 11/10/24 11/10/24 Range/Units 12:51 12:51 RBC 4.36 L (4.40-5.60) 10*6/uL Hgb 12.9 L (13.0-17.0) g/dL Hct 37.9 L (39.6-50.0) % Eosinophils # 0.38 H (0.04-0.35) 10*3/uL Chloride 108 H (98-107) mmol/L Total Protein 5.7 L (6.3-8.2) g/dL Albumin 3.3 L (3.5-5.0) g/dL Thrombosis Risk Factor Assmnt - DVT/VTE Prophylaxis DVT/VTE Prophylaxis: Pharmacologic Prophylaxis ordered - Choose All That Apply Any of the Below Risk Factors Present?: No Other Risk Factors: Yes Each Risk Factor Represents 2 Points: Age 61-74 years Other congenital or acquired thrombophilia - If yes, enter type in comment: No Each Risk Factor Represents 5 Points: Stroke (< 1 month) Thrombosis Risk Factor Assessment Total Risk Factor Score: 7 Thrombosis Risk Factor Assessment Level: High Risk Assessment and Plan Assessment: Status post fall could be due to intoxication Acute alcohol intoxication Acute right L2 and L3 transverse process fracture Elevated right diaphragm Recent history of left arm numbness ruled out acute CVA History of CVA with residual left arm stiffness. Remote ischemic changes within the parietal lobe and right cerebellum as per CT head. Left ICA stenosis 43% Hypertension Vaping history Chronic vertigo-like symptoms History of WPW syndrome status post ablation Anxiety/bipolar/depression/PTSD/schizophrenia ADD/ADHD DVT prophylax with heparin subcu Plan: Patient will be continued on neurochecks. Telemonitoring. Seen by neurology and recommended MRI of the brain to reevaluate for acute CVA and also EEG for epileptic activity. 2D echocardiogram was done earlier this month showed normal EF and ejection fraction with no regional wall motion abnormalities. Negative bubble study Patient started on aspirin 81 mg daily. PT OT and speech therapy was consulted. Monitor for alcohol withdrawal symptoms and patient has been counseled extensively. He was seen by orthopedic surgery. No intervention at this time. Encourage incentive spirometry. Time with Patient: Greater than 30
--- NOTE | 2024-11-12 12:55 | MR ---
EXAMINATION TYPE: MR brain wo con DATE OF EXAM: 11/12/2024 12:35 PM COMPARISON: 11/10/2024. CLINICAL INDICATION: Male, 69 years old with history of Left arm numbness, ?CVA; PHH, Lt arm numbness TECHNIQUE: Multi planar, multi sequence imaging was performed through the brain including: T1, T2, In version recovery, Diffusion weighted imaging, and gradient echo imaging. No gadolinium was given. FINDINGS: Gyriform restricted diffusion within the right parietal region with associated edema within the subcortical white matter. There is some blooming artifact within this region suggesting petechia l hemorrhage. Area within the left frontal lobe is also suspicious with similar increased FLAIR signal within the c ortex associated low ADC signal and mildly elevated DWI signal. Remote injury of the left parietal region and left frontal lobe suggested. The leos-white junctions, ventricular system, basal cisterns appear unremarkable. Scattered foci of high T2 signal intensity are seen within the periventricular white matter. Midline structures show n o abnormality. The susceptibility weighted images do not reveal any evidence for micro-hemorrhage. The bone marrow signal is within normal limits. Paranasal sinuses and mastoid air cells: No significant paranasal sinus disease. Visualized orbits: Orbital contents are intact. IMPRESSION: Motion limited exam. 1. Acute/subacute CVA involving the right parietal region predominantly the cortex with some petechia l hemorrhage suggested on susceptibility weighted imaging. 2. Additional area in the left frontal lobe cortex suspicious for ischemia as well. 3. Remote injury to the left parietal /occipital region. 4. Nonspecific white matter changes, likely secondary to small vessel ischemic disease. [facility], , 11/12/2024 12:53 PM
[2024-11-12] MEDS: THIAMINE 100 MG TAB PO SCH (13:41)
[2024-11-12] MEDS: CLOPIDOGREL 75 MG TAB PO SCH (16:10)
[2024-11-12] MEDS: ATORVASTATIN 20 MG TAB PO SCH (21:12)
--- NOTE | 2024-11-12 21:49 | EEG ---
DATE OF SERVICE: 11/11/2024 ELECTROENCEPHALOGRAM REPORT PREAMBLE: This is a 69-year-old male with a syncopal spell. This study is performed to evaluate for any epileptiform activity. EEG FINDINGS: This is a 21-channel digital EEG recorded with video component, utilizing 20 international system with referential and bipolar montages. The background consists of well-developed, moderately well regulated, mixed frequencies of 8 hertz alpha, intermixed with some moderate amplitude 5-6 hertz theta activity seen in bihemispheric region. Background is posterior dominant and seems to be reactive to eye opening and closing. Photic driving response was not clearly seen. Drowsiness was seen with appearance of bilaterally symmetric theta frequency rhythm. Deeper stages of sleep were not seen. No definitive focal or generalized epileptiform activity was seen. IMPRESSION: This is an abnormal EEG due to background slowing, suggestive of mild encephalopathy. No focal, lateralized or epileptiform activity was seen. MMODL / IJN: [id number] / MTDD
[2024-11-12] MEDS: IPRATROPIUM-ALBUTEROL 3 ML NEB INHALATION PRN (22:40)
--- NOTE | 2024-11-13 02:00 | P.PN ---
Subjective Progress Note Date: 11/12/24 Patient is a 69-year-old male with a known history of CVA/TIA, chronic vertigo, Jrepd-Pnwvgjdod-Uotdb syndrome, with history of ablation, COPD, ADD/ADHD, anxiety bipolar depression PTSD and schizophrenia and vaping history presents to ER status post fall. Patient was on getting into the back of the truck when he had a fall. Does not recall the fall. Patient is current was there who got him up. Does not recall whether he hit his head or not. Was complaining of right foot pain and left lower rib pain. Denies any focal weakness. Patient admits to drinking alcohol 1-2 drinks prior to the episode. Patient was intoxicated on admission. Laboratory data showed WBC 8.2 hemoglobin 12.9 and platelets 256 sodium 138 potassium 4.0 chloride 108 bicarb is 23 BUN 20 and creatinine 1.03 and blood sugar 75 liver enzymes are not elevated. LDL 63.3 and serum alcohol level was 175. UDS is negative. Chest x-ray showed no acute cardiopulmonary process. Elevated right diaphragm correlate for phrenic nerve injury. X-ray pelvis showed no acute osseous pathology. Mild degenerative changes of the hip. CT head and cervical spine showed no acute intracranial process. Nonspecific white matter changes likely secondary to chronic small vessel ischemic disease. Remote ischemic injuries within the parietal lobe and right cerebellum. No evidence of cervical spine fracture. Mild to moderate multilevel degenerative disc disease. CT chest and abdomen acute right L2 and L3 transverse process fractures. No other traumatic process within the chest or abdominal pelvis. Colonic diverticulosis without evidence for acute diverticulitis. Foot x-ray showed no acute fracture. Multifocal degenerative changes throughout the joints of the foot. 11/12/2024 Patient evaluated in follow-up today with neurology following and is scheduled to undergo MRI of the brain. Patient is reporting significant right foot pain and foot x-ray was noted to have no acute fracture will adjust pain medications. Patient also to be evaluated by physical therapy as patient would likely benefit from continued PT/OT therapy. Patient is agreeable and case management/social work has been consulted. Patient reports he is not a heavy drinker and normally drinks socially on the weekends. Patient has been evaluated by orthopedics with no plans of surgical intervention recommending outpatient follow-up. Patient continues to also report significant left-sided rib pain and will add incentive spirometer and encourage increase activity as tolerated. Encouraged the patient to elevate lower extremities while at rest. Patient is afebrile with no reports of chest pain or shortness of breath. Patient reports a tolerating diet with no reported nausea or vomiting. Review of systems: Constitutional: No reports of fatigue, fever, or chills Cardiovascular: No reports of chest pain or palpitations Respiratory: No reports of shortness of breath or cough GI: No reports of nausea, vomiting, or diarrhea : No reports of dysuria or retention Neurovascular: reports of generalized weakness and continued left rib and right foot pain All medications have been reviewed PHYSICAL EXAMINATION: Patient is sitting up in the bed comfortably, no acute distress, awake alert and oriented.. Well-developed, appears older than stated age, disheveled HEENT: Normocephalic. Neck is supple. Pupils reactive. Nostrils clear. Oral cavity is moist. Neck reveals no JVD, carotid bruits, or thyromegaly. CHEST EXAMINATION: Trachea is central. Symmetrical expansion. Lung tee clear to auscultation and percussion. CARDIAC: Normal S1, S2 with no gallops. No murmurs ABDOMEN: Soft. Thin. Bowel sounds normal. No organomegaly. No abdominal bruits. Extremities: reveal no edema. No clubbing or cyanosis. Right foot swelling and tender to the touch Neurologically awake, alert, oriented x3 with well-coordinated movements. No focal deficits noted, diffusely weak Skin: No rash or skin lesions. Psychiatric: Cooperative. Non-suicidal Musculoskeletal: No joint swelling or deformity. Normal range of motion. Supplement Assessment: Status post fall, possibly due to intoxication Acute versus subacute CVA involving the right parietal region predominantly the cortex with some petechial hemorrhage as noted on MRI Acute alcohol intoxication, on admission Acute right L2 and L3 transverse process fracture likely secondary to the fall Elevated right diaphragm Recent history of left arm numbness ruled out acute CVA History of CVA with residual left arm stiffness. Remote ischemic changes within the parietal lobe and right cerebellum as per CT head. Left ICA stenosis 43% Hypertension Vaping history Chronic vertigo-like symptoms History of WPW syndrome, status post ablation Anxiety/bipolar/depression/PTSD/schizophrenia ADD/ADHD DVT prophylax with heparin subcu GI prophylaxis Full code Plan: Patient will be continued on neurochecks. Telemonitoring. Seen by neurology and underwent MRI of the brain which was done today and revealed acute/subacute CVA involving the right parietal region predominantly cortex with some petechial hemorrhage suggested. Neurology following and EEG was normal 2D echocardiogram was done earlier this month showed normal EF and ejection fraction with no regional wall motion abnormalities. Negative bubble study Patient is continued on aspirin 81 mg daily. PT OT and speech therapy was consulted. PT/OT therapy evaluated recommending rehab and patient is agreeable patient would benefit from continued strength and mobility. Case management/social work following and will likely require in surance authorization Monitor for alcohol withdrawal symptoms and patient has been counseled maryann de la cruz. He was seen by orthopedic surgery. No intervention at this time. Encourage incentive spirometry use at least 10 times every hour while awake. Will discuss further with neurology regarding discharge planning. The impression and plan of care has been dictated by Lesly Marquez, Nurse Practitioner as directed. Dr. Ja MD I have performed a history and examination and MDM of this patient, discussed the same with the dictator, and agree with the dictator's assessment and plan as written ,documented as a scribe. Based on total visit time, I have performed more than 50% of the visit. Objective - Vital Signs Vital signs: Vital Signs Temp 98.3 F 11/12/24 07:00 Pulse 72 11/12/24 07:00 Resp 16 11/12/24 08:00 BP 179/93 11/12/24 07:00 Pulse Ox 96 11/12/24 07:00 FiO2 Intake & Output 11/11/24 11/12/24 11/12/24 18:59 06:59 18:59 Intake Total 720 236 120 Output Total 680 1200 1340 Balance 40 -964 -1220 Intake: Oral 720 236 120 Output: Urine 680 1200 1340 Other: Voiding Method Urinal Toilet Toilet Urinal Urinal # Bowel Movements 1 - Labs CBC & Chem 7: 11/10/24 12:51 11/10/24 12:51
--- NOTE | 2024-11-13 10:54 | P.PN ---
Subjective Progress Note Date: 11/12/24 Patient was seen for follow-up. Patient is laying comfortably in the bed. He sat on the bed when I arrived. Offers no new neurological symptoms. Objective - Vital Signs Vital signs: Vital Signs Temp 98.3 F 11/12/24 07:00 Pulse 72 11/12/24 07:00 Resp 16 11/12/24 08:00 BP 179/93 11/12/24 07:00 Pulse Ox 96 11/12/24 07:00 FiO2 Intake & Output 11/11/24 11/12/24 11/12/24 18:59 06:59 18:59 Intake Total 720 236 120 Output Total 680 1200 1540 Balance 40 964 -1420 Intake: Oral 720 236 120 Output: Urine 680 1200 1540 Other: Voiding Method Urinal Toilet Toilet Urinal Urinal # Bowel Movements 1 - Exam Examination unchanged. - Labs CBC & Chem 7: 11/10/24 12:51 11/10/24 12:51 Assessment and Plan Assessment: * Syncopal spell, while sitting on the back of the truck. This could be related to alcohol intoxication. Patient's blood alcohol level was 175 on arrival. * Subacute CVA involving the right parietal region, and also involving the left frontal lobe cortex. Patient had presented with left arm numbness. * History of CVA with residual left arm stiffness. * Left ICA stenosis 43%, per CTA * Metabolic encephalopathy, myoclonic jerks, unclear cause. * Hypertension * Vapes nicotine Plan: MRI of the brain revealed acute/subacute CVA involving the right parietal region, predominantly the cortex with some petechial hemorrhage, suggested on susceptibility weighted imaging. Additional area in the left frontal lobe cortex suspicious for ischemia. Remote injury to the left parietal/occipital region. Nonspecific white matter changes, likely secondary to small vessel ischemic disease. EEG was abnormal due to background slowing, suggestive of mild encephalopathy. No focal, lateralized or epileptiform activity was seen. 2-D echo 11/01/2024 revealed normal LV size and systolic function with EF 55-60%. No obvious regional wall motion abnormalities. Mild left atrial dilation. Negative agitated saline bubble study for [id number] shunt. No significant valvular abnormalities. CTA of head and neck 10/31/2024: Revealed 43% stenosis of the proximal left ICA due to calcified and noncalcified plaque. There is tortuosity of the remainder of the artery. No evidence of dissection of the cervical internal carotid arteries or vertebral arteries. No evidence of significant stenosis in the williamson tid evaluation. No evidence of intracranial high-grade stenosis or intracranial aneurysm. New scattered groundglass opacities in the right lung apex, correlate for atypical pneumonia. Patient has subacute ischemic strokes bilaterally. Although the CTA showed 43% stenosis of the proximal left ICA, but strokes are bilateral, therefore uncertain if left ICA is symptomatic. Fasting a.m. Lipid panel with cholesterol 145, LDL 63, HDL 54 and triglycerides 135. We will start Lipitor 20 mg daily. Hemoglobin A1c 5.9 on 11/01/2024 Optimize control of blood pressure. Urine drug screen negative. Patient to be placed on dual antiplatelet therapy at least for 21 days, then may stop Plavix and continue aspirin indefinitely. Patient does not take any antiplatelet medication prior to arrival to the hospital. Neuro checks every 2 hours Telemetry monitoring rule out any arrhythmia PT, OT, speech therapy Recommend abstaining from alcoholism. DVT prophylaxis: Heparin 5000 units subcu every 12 hours PT OT. Patient wants to go to rehab facility. Discussed with primary team.
[2024-11-13] MEDS: traMADol 50 MG TAB PO PRN (11:18)
--- NOTE | 2024-11-13 14:32 | P.PN ---
Subjective Progress Note Date: 11/13/24 Patient is a 69-year-old male with a known history of CVA/TIA, chronic vertigo, Ywqdi-Msimrgvfn-Dysbz syndrome, with history of ablation, COPD, ADD/ADHD, anxiety bipolar depression PTSD and schizophrenia and vaping history presents to ER status post fall. Patient was on getting into the back of the truck when he had a fall. Does not recall the fall. Patient is current was there who got him up. Does not recall whether he hit his head or not. Was complaining of right foot pain and left lower rib pain. Denies any focal weakness. Patient admits to drinking alcohol 1-2 drinks prior to the episode. Patient was intoxicated on admission. Laboratory data showed WBC 8.2 hemoglobin 12.9 and platelets 256 sodium 138 potassium 4.0 chloride 108 bicarb is 23 BUN 20 and creatinine 1.03 and blood sugar 75 liver enzymes are not elevated. LDL 63.3 and serum alcohol level was 175. UDS is negative. Chest x-ray showed no acute cardiopulmonary process. Elevated right diaphragm correlate for phrenic nerve injury. X-ray pelvis showed no acute osseous pathology. Mild degenerative changes of the hip. CT head and cervical spine showed no acute intracranial process. Nonspecific white matter changes likely secondary to chronic small vessel ischemic disease. Remote ischemic injuries within the parietal lobe and right cerebellum. No evidence of cervical spine fracture. Mild to moderate multilevel degenerative disc disease. CT chest and abdomen acute right L2 and L3 transverse process fractures. No other traumatic process within the chest or abdominal pelvis. Colonic diverticulosis without evidence for acute diverticulitis. Foot x-ray showed no acute fracture. Multifocal degenerative changes throughout the joints of the foot. 11/12/2024 Patient evaluated in follow-up today with neurology following and is scheduled to undergo MRI of the brain. Patient is reporting significant right foot pain and foot x-ray was noted to have no acute fracture will adjust pain medications. Patient also to be evaluated by physical therapy as patient would likely benefit from continued PT/OT therapy. Patient is agreeable and case management/social work has been consulted. Patient reports he is not a heavy drinker and normally drinks socially on the weekends. Patient has been evaluated by orthopedics with no plans of surgical intervention recommending outpatient follow-up. Patient continues to also report significant left-sided rib pain and will add incentive spirometer and encourage increase activity as tolerated. Encouraged the patient to elevate lower extremities while at rest. Patient is afebrile with no reports of chest pain or shortness of breath. Patient reports a tolerating diet with no reported nausea or vomiting. 11/13/2024 Patient is seen and evaluated in follow-up today continues with weakness and has been evaluated by physical therapy along with neurology recommending rehab and patient is agreeable. Social work was consulted placed referrals looking into possible [facility] and medical review is currently reviewing. Per nursing staff, patient has history of leaving AGAINST MEDICAL ADVICE making it difficult to find ECF for patient. Patient is afebrile denies chest pain or shortness of breath although continues to report right sided foot pain. Continue with specialty boot along with elevating while at rest. Review of systems: Constitutional: No reports of fatigue, fever, or chills Cardiovascular: No reports of chest pain or palpitations Respiratory: No reports of shortness of breath or cough GI: No reports of nausea, vomiting, or diarrhea : No reports of dysuria or retention Neurovascular: reports of generalized weakness and continued left rib and right foot pain All medications have been reviewed PHYSICAL EXAMINATION: Patient is sitting up in the bed comfortably, no acute distress, awake alert and oriented.. Well-developed, appears older than stated age, disheveled HEENT: Normocephalic. Neck is supple. Pupils reactive. Nostrils clear. Oral cavity is moist. Neck reveals no JVD, carotid bruits, or thyromegaly. CHEST EXAMINATION: Trachea is central. Symmetrical expansion. Lung tee clear to auscultation and percussion. CARDIAC: Normal S1, S2 with no gallops. No murmurs ABDOMEN: Soft. Thin. Bowel sounds normal. No organomegaly. No abdominal bruits. Extremities: reveal no edema. No clubbing or cyanosis. Right foot swelling and tender to the touch Neurologically awake, alert, oriented x3 with well-coordinated movements. No focal deficits noted, diffusely weak Skin: No rash or skin lesions. Psychiatric: Cooperative. Non-suicidal Musculoskeletal: No joint swelling or deformity. Normal range of motion. Supplement Assessment: Status post fall, possibly due to intoxication Acute versus subacute CVA involving the right parietal region predominantly the cortex with some petechial hemorrhage as noted on MRI Acute alcohol intoxication, on admission Acute right L2 and L3 transverse process fracture likely secondary to the fall Elevated right diaphragm Recent history of left arm numbness ruled out acute CVA History of CVA with residual left arm stiffness. Remote ischemic changes within the parietal lobe and right cerebellum as per CT head. Left ICA stenosis 43% Hypertension Vaping history Chronic vertigo-like symptoms History of WPW syndrome, status post ablation Anxiety/bipolar/depression/PTSD/schizophrenia ADD/ADHD DVT prophylax with heparin subcu GI prophylaxis Full code Plan: Patient will be continued on neurochecks. Telemonitoring. Seen by neurology and underwent MRI of the brain which was done today and revealed acute/subacute CVA involving the right parietal region predominantly cortex with some petechial hemorrhage suggested. Neurology following and EEG was normal 2D echocardiogram was done earlier this month showed normal EF and ejection fraction with no regional wall motion abnormalities. Negative bubble study Patient is continued on aspirin 81 mg daily. PT OT and speech therapy was consulted. PT/OT therapy evaluated recommending rehab and patient is agreeable patient would benefit from continued strength and mobility. Case management/social work following and will likely require insurance authorization. Per social work, [facility] is reviewing Monitor for alcohol withdrawal symptoms and patient has been counseled extensively. He was seen by orthopedic surgery. No intervention at this time. Encourage incentive spirometry use at least 10 times every hour while awake. Possible discharge planning in the next 24 to 48 hours if patient receives insurance authorization and excepting ECF. Social work is following and will need to make arrangements in the event prior authorization is not obtained. Patient does have history of leaving AGAINST MEDICAL ADVICE from such facilities. The impression and plan of care has been dictated by Lesly Marquez, Nurse Practitioner as directed. Dr. Ja MD I have performed a history and examination and MDM of this patient, discussed the same with the dictator, and agree with the dictator's assessment and plan as written ,documented as a scribe. Based on total visit time, I have performed more than 50% of the visit. Objective - Vital Signs Vital signs: Vital Signs Temp 99.5 F 11/13/24 07:10 Pulse 77 11/13/24 07:10 Resp 16 11/13/24 07:10 BP 132/74 11/13/24 07:10 Pulse Ox 97 11/13/24 07:10 FiO2 Intake & Output 11/12/24 11/13/24 11/13/24 18:59 06:59 18:59 Intake Total 800 240 Output Total 1640 300 Balance -840 -300 240 Intake: Oral 800 240 Output: Urine 1640 300 Other: Voiding Method Toilet Toilet Urinal Urinal # Voids 3 1 - Labs CBC & Chem 7: 11/10/24 12:51 11/10/24 12:51
--- NOTE | 2024-11-14 11:54 | P.PN ---
Subjective Progress Note Date: 11/13/24 Patient was seen for follow-up. Patient is laying comfortably in the bed. Offers no new neurological symptoms. Objective - Vital Signs Vital signs: Vital Signs Temp 99.9 F H 11/13/24 15:00 Pulse 87 11/13/24 15:00 Resp 16 11/13/24 15:00 BP 154/92 11/13/24 15:00 Pulse Ox 97 11/13/24 15:00 FiO2 Intake & Output 11/12/24 11/13/24 11/13/24 18:59 06:59 18:59 Intake Total 800 480 Output Total 1640 300 Balance -840 -300 480 Intake: Oral 800 480 Output: Urine 1640 300 Other: Voiding Method Toilet Toilet Urinal Urinal # Voids 3 1 - Exam Examination unchanged. - Labs CBC & Chem 7: 11/10/24 12:51 11/10/24 12:51 Assessment and Plan Assessment: * Syncopal spell, while sitting on the back of the truck. This could be related to alcohol intoxication. Patient's blood alcohol level was 175 on arrival. * Subacute CVA involving the right parietal region, and also involving the left frontal lobe cortex. Patient had presented with left arm numbness. * History of CVA with residual left arm stiffness. * Left ICA stenosis 43%, per CTA * Metabolic encephalopathy, myoclonic jerks, unclear cause. * Hypertension * Vapes nicotine Plan: MRI of the brain revealed acute/subacute CVA involving the right parietal region, predominantly the cortex with some petechial hemorrhage, suggested on susceptibility weighted imaging. Additional area in the left frontal lobe cortex suspicious for ischemia. Remote injury to the left parietal/occipital region. Nonspecific white matter changes, likely secondary to small vessel i schemic disease. EEG was abnormal due to background slowing, suggestive of mild encephalopathy. No focal, lateralized or epileptiform activity was seen. 2-D echo 11/01/2024 revealed normal LV size and systolic function with EF 55-60%. No obvious regional wall motion abnormalities. Mild left atrial dilation. Negative agitated saline bubble study for [id number] shunt. No significant valvular abnormalities. CTA of head and neck 10/31/2024: Revealed 43% stenosis of the proximal left ICA due to calcified and noncalcified plaque. There is tortuosity of the remainder of the artery. No evidence of dissection of the cervical internal carotid arteries or vertebral arteries. No evidence of significant stenosis in the carotid evaluation. No evidence of intracranial high-grade stenosis or intracranial aneurysm. New scattered groundglass opacities in the right lung apex, correlate for atypical pneumonia. Patient has subacute ischemic strokes bilaterally. Although the CTA showed 43% stenosis of the proximal left ICA, but strokes are bilateral, therefore uncertain if left ICA is symptomatic. Recommend maximal medical management for ICA stenosis at this time. Recommend surveillance carotid Doppler every 6 months. Fasting a.m. Lipid panel with cholesterol 145, LDL 63, HDL 54 and triglycerides 135. We will start Lipitor 20 mg daily. Hemoglobin A1c 5.9 on 11/01/2024 Optimize control of blood pressure. Urine drug screen negative. Patient to be placed on dual antiplatelet therapy at least for 21 days, then may stop Plavix and continue aspirin indefinitely. Patient does not take any antiplatelet medication prior to arrival to the hospital. Neuro checks every 2 hours Telemetry monitoring rule out any arrhythmia PT, OT, speech therapy Recommend abstaining from alcoholism. DVT prophylaxis: Heparin 5000 units subcu every 12 hours PT OT. Neurologically clear for discharge. Patient wants to go to [facility].
[2024-11-14] MEDS: MAG HYDROX/AL HYDROX/SIMETH 30 ML CUP PO PRN (12:56)
--- NOTE | 2024-11-15 06:48 | P.DS ---
Providers Date of admission: 11/10/24 17:21 Expected date of discharge: 11/15/24 Attending physician: Danielle Izaguirre Consults: 11/10/24 17:21 Consult Physician Routine Consulting Provider: Dominic Martinez Consult Reason/Comments: lumbar transverse Do you want consulting provider notified?: Yes 11/10/24 17:22 Consult Physician Routine Consulting Provider: María Rosas Consult Reason/Comments: eval for tia Do you want consulting provider notified?: Yes Primary care physician: Physician Nonstaff Hospital Course: Final diagnosis Right foot pain status post fall, possibly due to intoxication, no fractures noted Acute versus subacute CVA involving the right parietal region predominantly the cortex with some petechial hemorrhage as noted on MRI Acute alcohol intoxication, on admission Acute right L2 and L3 transverse process fracture likely secondary to the fall Elevated right diaphragm Recent history of left arm numbness ruled out acute CVA History of CVA with residual left arm stiffness. Remote ischemic changes within the parietal lobe and right cerebellum as per CT head. Left ICA stenosis 43% Hypertension Vaping history Chronic vertigo-like symptoms History of WPW syndrome, status post ablation Anxiety/bipolar/depression/PTSD/schizophrenia ADD/ADHD DVT prophylax with heparin subcu GI prophylaxis Full code Discharge disposition Patient is being discharged in a stable condition with guarded prognosis to [facility]. Patient will follow-up with Diane Garnica NP in the outpatient setting upon discharge. Patient is to continue with aspirin and Plavix and outpatient follow-up with neurology as scheduled. Patient to follow- up with orthopedics as needed outpatient. Total time taken is greater than 35 minutes. Hospital course Patient is a 69-year-old male with a known history of CVA/TIA, chronic vertigo, Ixzqs-Idtzytcuy-Lmxcb syndrome, with history of ablation, COPD, ADD/ADHD, anxiety bipolar depression PTSD and schizophrenia and vaping history presents to ER status post fall. Patient was on getting into the back of the truck when he had a fall. Does not recall the fall. Patient is current was there who got him up. Does not recall whether he hit his head or not. Was complaining of right foot pain and left lower rib pain. Denies any focal weakness. Patient admits to drinking alcohol 1-2 drinks prior to the episode. Patient was intoxicated on admission. Laboratory data showed WBC 8.2 hemoglobin 12.9 and platelets 256 sodium 138 potassium 4.0 chloride 108 bicarb is 23 BUN 20 and creatinine 1.03 and blood sugar 75 liver enzymes are not elevated. LDL 63.3 and serum alcohol level was 175. UDS is negative. Chest x-ray showed no acute cardiopulmonary process. Elevated right diaphragm correlate for phrenic nerve injury. X-ray pelvis showed no acute osseous pathology. Mild degenerative changes of the hip. CT head and cervical spine showed no acute intracranial process. Nonspecific white matter changes likely secondary to chronic small vessel ischemic disease. Remote ischemic injuries within the parietal lobe and right cerebellum. No evidence of cervical spine fracture. Mild to moderate multilevel degenerative disc disease. CT chest and abdomen acute right L2 and L3 transverse process fractures. No other traumatic process within the chest or abdominal pelvis. Colonic diverticulosis without evidence for acute diverticulitis. Foot x-ray showed no acute fracture. Multifocal degenerative changes throughout the joints of the foot. 11/12/2024 Patient evaluated in follow-up today with neurology following and is scheduled to undergo MRI of the brain. Patient is reporting significant right foot pain and foot x-ray was noted to have no acute fracture will adjust pain medications. Patient also to be evaluated by physical therapy as patient would likely benefit from continued PT/OT therapy. Patient is agreeable and case management/social work has been consulted. Patient reports he is not a heavy drinker and normally drinks socially on the weekends. Patient has been evaluated by orthopedics with no plans of surgical intervention recommending outpatient follow-up. Patient continues to also report significant left-sided rib pain and will add incentive spirometer and encourage increase activity as tolerated. Encouraged the patient to elevate lower extremities while at rest. Patient is afebrile with no reports of chest pain or shortness of breath. Patient reports a tolerating diet with no reported nausea or vomiting. 11/13/2024 Patient is seen and evaluated in follow-up today continues with weakness and has been evaluated by physical therapy along with neurology recommending rehab and patient is agreeable. Social work was consulted placed referrals looking into possible [facility] [place] and medical review is currently reviewing. Per nursing staff, patient has history of leaving AGAINST MEDICAL ADVICE making it difficult to find ECF for patient. Patient is afebrile denies chest pain or shortness of breath although continues to report right sided foot pain. Continue with specialty boot along with elevating while at rest. 11/14/2024 Patient is seen in follow-up today right foot pain and generalized weakness with neurology following. Plan is for [facility] and insurance authorization remains pending. Social work following and will need to discuss discharge planning if eliz garcia's insurance authorization is not improved. Patient had a recent stroke neurolysed weakness and difficulty with ambulation with extreme right foot pain would benefit from ECF for continued strength and mobility. Currently no reports of chest pain, shortness of breath, or palpitations. Patient is afebrile. No reports of nausea or vomiting and patient is tolerating diet. Patient will be going to [facility] once insurance authorization is obtained. PHYSICAL EXAMINATION: Patient is sitting up in the bed comfortably, no acute distress, awake alert and oriented.. Well-developed, appears older than stated age, disheveled HEENT: Normocephalic. Neck is supple. Pupils reactive. Nostrils clear. Oral cavity is moist. Neck reveals no JVD, carotid bruits, or thyromegaly. CHEST EXAMINATION: Trachea is central. Symmetrical expansion. Lung tee clear to auscultation and percussion. CARDIAC: Normal S1, S2 with no gallops. No murmurs ABDOMEN: Soft. Thin. Bowel sounds normal. No organomegaly. No abdominal bruits. Extremities: reveal no edema. No clubbing or cyanosis. Right foot swelling and tender to the touch Neurologically awake, alert, oriented x3 with well-coordinated movements. No focal deficits noted, diffusely weak Skin: No rash or skin lesions. Psychiatric: Cooperative. Non-suicidal Musculoskeletal: No joint swelling or deformity. Normal range of motion. Supplement Please refer to medication reconciliation sheet for a list of medications. The impression and plan of care has been dictated by Lesly Marquez, Nurse Practitioner as directed. Dr. Ja MD I have performed a history and examination and MDM of this patient, discussed the same with the dictator, and agree with the dictator's assessment and plan as written ,documented as a scribe. Based on total visit time, I have performed more than 50% of the visit. Patient Condition at Discharge: Fair Plan - Discharge Summary Discharge Rx Participant: No New Discharge Prescriptions: New Aspirin 81 mg PO DAILY tab Ipratropium-Albuterol Nebulize [Duoneb 0.5 mg-3 mg/3 ml Soln] 3 ml INHALATION RT-QID PRN each PRN Reason: Shortness Of Breath Or Wheezing Heparin Sodium,Porcine (1 ml) [Heparin Sodium] 5,000 unit SQ Q12HR each Clopidogrel [Plavix] 75 mg PO DAILY tab Pantoprazole [Protonix] 40 mg PO AC-BRKFST tab Thiamine [Vitamin B-1] 100 mg PO DAILY tab traMADol HCl [Ultram] 50 mg PO TID 3 Days #6 tab Atorvastatin [Lipitor] 20 mg PO HS tab Mag Hydrox/Al Hydrox/Simeth [Maalox] 30 ml PO Q4HR PRN ml PRN Reason: Gi Upset Cephalexin [Keflex] 500 mg PO BID 5 Days #10 cap Continue Sertraline [Zoloft] 50 mg PO DAILY QUEtiapine FUMARATE [SEROquel XR] 400 mg PO HS Gabapentin 600 mg PO TID Discharge Medication List Gabapentin 600 mg PO TID 10/31/24 [History] QUEtiapine FUMARATE [SEROquel XR] 400 mg PO HS 10/31/24 [History] Sertraline [Zoloft] 50 mg PO DAILY 10/31/24 [History] Aspirin 81 mg PO DAILY tab 11/14/24 [Rx] Atorvastatin [Lipitor] 20 mg PO HS tab 11/14/24 [Rx] Clopidogrel [Plavix] 75 mg PO DAILY tab 11/14/24 [Rx] Heparin Sodium,Porcine (1 ml) [Heparin Sodium] 5,000 unit SQ Q12HR each 11/14/24 [Rx] Ipratropium-Albuterol Nebulize [Duoneb 0.5 mg-3 mg/3 ml Soln] 3 ml INHALATION RT-QID PRN each 11/14/24 [Rx] Mag Hydrox/Al Hydrox/Simeth [Maalox] 30 ml PO Q4HR PRN ml 11/14/24 [Rx] Pantoprazole [Protonix] 40 mg PO AC-BRKFST tab 11/14/24 [Rx] Thiamine [Vitamin B-1] 100 mg PO DAILY tab 11/14/24 [Rx] Cephalexin [Keflex] 500 mg PO BID 5 Days #10 cap 11/15/24 [Rx] traMADol HCl [Ultram] 50 mg PO TID 3 Days #6 tab 11/15/24 [Rx] Follow up Appointment(s)/Referral(s): Nonstaff,Physician [Primary Care Provider] - 1-2 days Dominic Martinez DO [Doctor of Osteopathic Medicine] - 1-2 days Patient Instructions/Handouts: Alcohol Intoxication (ED), Fall Prevention (ED), Transverse Process Fracture (ED) Activity/Diet/Wound Care/Special Instructions: Patient is going to [facility] Activity as tolerated Follow-up with neurology outpatient Follow-up and establish with primary care provider Continue taking medications as prescribed Patient to continue with oral Keflex 500 mg twice daily for 5 days Please follow-up with orthopedics and primary care physician in the next day or 2 for recheck. Discontinue alcohol use, especially when on the roof. With return for increased pain, weakness, confusion, difficulty breathing, worsening or changing symptoms or other concerns. Prescription for lumbar corset provided. This can be obtained at [employer]. Discharge/Stand Alone Forms: Area PCPs Discharge Disposition: TRANSFER TO SNF/ECF
[2024-11-15 07:43] LABS: Basophils # (A) 0.05 10*3/uL (0.00-0.10); Basophils % (A) 0.6 %; Eosinophils % (A) 2.3 %; HCT 42.6 % (39.6-50.0); HGB 14.4 g/dL (13.0-17.0); Lymphocytes # (A) 1.41 10*3/uL (0.90-5.00); Lymphocytes % (A) 16.2 %; MCH 28.7 pg (27.0-32.0); MCHC 33.8 g/dL (32.0-37.0); MCV 84.9 fL (80.0-97.0); Mean Platelet Volume 10.7 fL (9.5-12.2); Monocytes # (A) 1.81 10*3/uL (0.20-1.00); Monocytes % (A) 20.8 %; Neutrophils # (A) 5.22 10*3/uL (1.80-7.70); Neutrophils % (A) 59.8 %; Platelet Count 243 10*3/uL (140-440); RBC 5.02 10*6/uL (4.40-5.60); RDW 13.5 % (11.5-14.5); WBC 8.72 10*3/uL (4.50-10.00)
[2024-11-15 07:57] LABS: African American GFR (CKD) >90 (>60 ml/min/1.73 sqM); Anion Gap 9 mmol/L; Blood Urea Nitrogen 19 mg/dL (9-20); Calcium 9.7 mg/dL (8.4-10.2); Carbon Dioxide 24 mmol/L (22-30); Chloride 100 mmol/L (98-107); Glucose 105 mg/dL (74-99); Non-African American GFR(CKD) >90 (>60 ml/min/1.73 sqM); Potassium 4.1 mmol/L (3.5-5.1); Sodium 133 mmol/L (137-145)
[2024-11-15] MEDS: CEPHALEXIN 500 MG CAP PO SCH (13:08)
[2024-11-15 15:06] VITALS: BP 127/74; PULSE 86; RESP 18; TEMP 97.9
--- NOTE | 2024-11-18 17:48 | CDI ---
Documentation Clarification Form Date: 11/18/2024 05:31:49 PM From: Darcie Tucker Phone: Admit Date: 11/10/2024 05:21:00 PM Patient Name: Michael Cifuentes Visit Number: [id number] Discharge Date: 11/15/2024 05:42:00 PM ATTENTION: The Clinical Documentation Specialists (CDI) and [facility] Coding Staff appreciate your assistance in clarifying documentation. Please respond to the clarification below the line at the bottom and electronically sign. The CDI & [facility] Coding staff will review the response and follow-up if needed. Please note: Queries are made part of the Legal Health Record. If you have any questions, please contact the author of this message via ITS. Doctor/Provider: Krystina Peres Metabolic Encephalopathy is documented in 11/11 Neurology consult note which may lack sufficient clinical evidence/support in the medical record. Additional clarification is requested. Patient history/risk factors: Patient is a 69-year-old male with a knownhistory of CVA/TIA, chronicvertigo,Vmltd-Ywxqtbqcs-Quwxl syndrome, with history ofablation,COPD, ADD/ADHD,anxietybipolardepressionPTSDandschizophreniaand vaping history presents to [facility]. Patient was on getting into the back of the truck when he had afall. Clinical Indicators: On 11/11 h/p -Patient admits to drinking alcohol 1-2 drinks prior to the episode. Patient was intoxicatedon admission. Laboratory data showed WBC 8. 2 hemoglobin 12. 9 and platelets 256 sodium 138 potassium 4. 0 chloride 108 bicarb is 23 BUN 20 and creatinine 1. 03 and blood sugar 75 liver enzymes arenotelevated. LDL 63. 3 and serumalcohol levelwas 175. UDS is negative. Chest x-rayshowed no acute cardiopulmonary process. Elevatedright diaphragm correlate for phrenicnerve injury. X-raypelvis showed no acute osseous pathology. Mild degenerative changes of the hip. CT headand cervical spine showed no acute intracranial process. Nonspecific white matter changes likely secondary to chronic small vesselischemicdisease. Remoteischemicinjurieswithin the parietal lobe and right cerebellum. No evidence ofcervical spine fracture. Mild to moderate multileveldegenerative disc disease. CTchest and abdomen acute right L2 andL3 transverse process fractures. No othertraumaticprocess within the chest or abdominal pelvis. On 11/11 consult -Metabolic encephalopathy,myoclonic jerks, unclear cause. EEG was abnormal due to background slowing, suggestive of mildencephalopathy. Treatment: Patient to beplacedon dualantiplatelet therapyat least for 21 days, then may stop Plavix and continue aspirin indefinitely, no emergent/urgent orthopedic spine intervention needed for fracture. Monitor foralcohol withdrawal symptomsand patient has been counseled extensively. After work up and study, please clarify which diagnosis is most appropriate? [ ] Encephalopathy ruled out [ ] Encephalopathy is a valid diagnosis as evidenced by the following: [x ] Altered mental status/syncope related to acute alcohol intoxication [ ] Metabolic encephalopathy due to (etiology needed) as evidenced by (please provide additional clinical support) [ ] Unable to determine [ ] Other, please specify (Template Last Revised: July 2023) MTDD
== END 2024-11-15 17:42 | DRG 551 ==
LOC: EC 12:35 → 6NMEDSUR 17:21 → OBSVTOIN 17:21 → 6NMEDSUR 18:49
PROVIDERS: ADMIT Hospitalist; ATTEND Hospitalist
DX: S32.029A Unspecified fracture of second lumbar vertebra, initial encounter for closed fracture (principal); I63.9 Cerebral infarction, unspecified; S32.039A Unspecified fracture of third lumbar vertebra, initial encounter for closed fracture; F20.9 Schizophrenia, unspecified; J44.9 Chronic obstructive pulmonary disease, unspecified; G20.A1 Parkinson's disease without dyskinesia, without mention of fluctuations; F10.129 Alcohol abuse with intoxication, unspecified; I10 Essential (primary) hypertension; F31.9 Bipolar disorder, unspecified; M79.671 Pain in right foot; I65.22 Occlusion and stenosis of left carotid artery; I45.6 Pre-excitation syndrome; F41.9 Anxiety disorder, unspecified; F90.9 Attention-deficit hyperactivity disorder, unspecified type; F43.10 Post-traumatic stress disorder, unspecified; G62.9 Polyneuropathy, unspecified; Y90.6 Blood alcohol level of 120-199 mg/100 ml; G25.3 Myoclonus; F17.290 Nicotine dependence, other tobacco product, uncomplicated; R42 Dizziness and giddiness; R41.82 Altered mental status, unspecified; W19.XXXA Unspecified fall, initial encounter; I25.2 Old myocardial infarction; Z59.86 Financial insecurity; Z79.899 Other long term (current) drug therapy; Z88.8 Allergy status to other drugs, medicaments and biological substances; Z88.9 Allergy status to unspecified drugs, medicaments and biological substances
CPT/HCPCS: 36415; 70450; 70551; 71045; 71260; 72125; 72170; 74177; 80048; 80053; 80061; 80306; 80320; 83605; 83735; 84484; 85025; 85610; 85730; 86850; 86900; 86901; 93005; 94640; 94760; 95816; 96374; 99291

== ENCOUNTER 2025-01-19 12:06 | Inpatient (IN) | payer MEDICARE, OTHER ==
--- NOTE | 2025-01-19 12:39 | ED ---
General Adult HPI - General Chief complaint: Fall Stated complaint: Fall Time Seen by Provider: 01/19/25 12:09 Source: patient, EMS Mode of arrival: EMS - History of Present Illness Initial comments: Dictation was produced using [employer] dictation software. please excuse any grammatical, word or spelling errors. Chief Complaint: 69-year-old male presents emergency department after fall History of Present Illness: Patient 69-year-old male presents emergency department after fall. Patient states that he fell last night. States that he was tending to his barking dogs when he tripped and fell backwards landed. He hurt his lower back and left hip. Patient also states he hit the back of his head. Patient was unable to get help until family friend discovered him called EMS. The ROS documented in this emergency department record has been reviewed and confirmed by me. Those systems with pertinent positive or negative responses have been documented in the HPI. All other systems are other negative and/or noncontributory. - Related Data Home Medications Medication Instructions Recorded Confirmed Cetirizine HCl 10 mg PO DAILY 01/19/25 01/19/25 Gabapentin 300 mg PO BID 01/19/25 01/19/25 HYDROcodone/APAP 5-325MG [[place] 1 tab PO TID PRN 01/19/25 01/19/25 5-325] Losartan Potassium 50 mg PO DAILY 01/19/25 01/19/25 carvediloL [Coreg] 12.5 mg PO BID-W/MEALS 01/19/25 01/19/25 Previous Rx's Medication Instructions Recorded Atorvastatin [Lipitor] 20 mg PO HS tab 11/14/24 Clopidogrel [Plavix] 75 mg PO DAILY tab 11/14/24 Allergies Allergy/AdvReac Type Severity Reaction Status Date / Time acetaminophen [From Tylenol] AdvReac Nausea Verified 01/19/25 12:45 ibuprofen [From Motrin] AdvReac Vomiting Verified 01/19/25 12:45 indomethacin [From Indocin] AdvReac Nausea Verified 01/19/25 12:45 propoxyphene [From Darvon] AdvReac Nausea Verified 01/19/25 12:45 Review of Systems ROS Statement: Those systems with pertinent positive or pertinent negative responses have been documented in the HPI. ROS Other: All systems not noted in ROS Statement are negative. Past Medical History Past Medical History: COPD, CVA/TIA, Myocardial Infarction ([place]), Neurologic Disorder Additional Past Medical History / Comment(s): [place] Parkinsons White symdrome, vertigo, spinal injuries, Last Myocardial Infarction Date:: 2011 History of Any Multi-Drug Resistant Organisms: None Reported Past Surgical History: Cardiac Ablation Additional Past Surgical History / Comment(s): CTS surguries Past Anesthesia/Blood Transfusion Reactions: No Reported Reaction Past Psychological History: ADD/ADHD, Anxiety, Bipolar, Depression, PTSD, Schizophrenia Smoking Status: Vaper Past Alcohol Use History: Occasional Past Drug Use History: None Reported General Exam - General Exam Comments Initial Comments: PHYSICAL EXAM: General Impression: Alert and oriented x3, not in acute distress HEENT: Normocephalic atraumatic, extra-ocular movements intact, pupils equal and reactive to light bilaterally, mucous membranes moist. Cardiovascular: Heart regular rate and rhythm Chest: Able to complete full sentences, no retractions, no tachypnea Abdomen: abdomen soft, non-tender, non-distended, no organomegaly Musculoskeletal: Pulses present and equal in all extremities, no peripheral edema, pain with manipulation at the left hip, palpatory tenderness to the left lower back Motor: no focal deficits noted Neurological: CN II-XII grossly intact, no focal motor or sensory deficits noted Skin: Intact with no visualized rashes Psych: Normal affect and mood Course Vital Signs 01/19/25 01/19/25 01/19/25 12:10 13:29 14:45 Temperature 99.1 F Pulse Rate 112 H 105 H 113 H Respiratory 20 22 22 Rate Blood Pressure 115/78 155/99 105/80 O2 Sat by Pulse 99 98 94 L Oximetry EKG Findings - EKG Comments: EKG Findings:: My EKG interpretation: Ventricular rate 103, sinus tachycardia, MI 187, QT QRS 114, QTc 420. No MI prolongation, no QTC prolongation, no ST or T-wave changes noted. Overall, this EKG is unremarkable Medical Decision Making - Medical Decision Making Was pt. sent in by a medical professional or institution (, PA, [employer], urgent care, hospital, or halfway...) When possible be specific @ -No Did you speak to anyone other than the patient for history (EMS, parent, family, police, friend...)? What history was obtained from this source @ -No Did you review nursing and triage notes (agree or disagree)? Why? @ -I reviewed and agree with nursing and triage notes Were old charts reviewed (outside hosp., previous admission, EMS record, old EKG, old radiological studies, urgent care reports/EKG's, halfway records)? Report findings @ -No old charts were reviewed Differential Diagnosis (chest pain, altered mental status, abdominal pain women, abdominal pain men, vaginal bleeding, musculoskeletal, weakness, fever, dyspnea, syncope, headache, dizziness, GI bleed, back pain, seizure, CVA, palpatations, mental health)? @ -Differential Syncope: Valvular disease, hypertrophic cardiomyopathy, pulmonary embolism, tamponade, tachycardia, bradycardia, [place], hypovolemia, hemorrhage, dissection, anemia, intracranial hemorrhage, seizure, hypoglycemia, carbon monoxide poisoning, this is not meant to be an all-inclusive list. EKG interpreted by me (3pts min.). @ -See above X-rays interpreted by me (1pt min.). @ -Pelvis x-ray chest x-ray shows no acute processes CT interpreted by me (1pt min.). @ -CT ab pelvis shows no acute processes CT head and C-spine shows no acute processes U/S interpreted by me (1pt. min.). @ -None done What testing was considered but not performed or refused? (CT, X-rays, U/S, la bs)? Why? @ -None What meds were considered but not given or refused? Why? @ -None Was smoking cessation discussed for >3mins.? @ -No Were there social determinants of health that impacted care today? How? (Homelessness, low income, unemployed, alcoholism, drug addiction, transportation, low edu. Level, literacy, decrease access to med. care, care home, rehab)? @ -No Was there de-escalation of care discussed even if they declined (Discuss DNR or withdrawal of care, Hospice)? DNR status @ -No What co-morbidities impacted this encounter? (DM, HTN, Smoking, COPD, CAD, Cancer, CVA, ARF, Chemo, Hep., AIDS, mental health diagnosis, sleep apnea, morbid obesity)? @ -None Was patient admitted / discharged? Hospital course, mention meds given and route, prescriptions, significant lab abnormalities, going to OR and other pertinent info. @ -69-year-old male presents emergency department after fall. Patient has called coag due to Plavix use. Vital signs stable. Fall occurred yesterday. Vital signs stable. Patient complaining of left hip and left lower back pain. Imaging studies are negative. Laboratory evaluation obtained. Patient has CK of 15,524. Clinical presentation consistent with rhabdomyolysis. Patient given IV fluids will be admitted with consultation to nephrology. Case discussed with hospitalist for admission Did you discuss the management of the patient with other professionals (professionals i.e. , PA, [employer], lab, RT, psych nurse, social worker palliative care, waterside worker, teacher, chief fundraising officer, case preparer and liner)? Give summary @ -No Was critical care preformed (if so, how long)? @ -No Undiagnosed new problem with uncertain prognosis? @ -No Drug Therapy requiring intensive monitoring for toxicity (Heparin, Nitro, Insulin, Cardizem)? @ -No Were any procedures done? @ -No Diagnosis/symptom? Acute, or Chronic, or Acute on Chronic? Uncomplicated (without systemic symptoms) or Complicated (systemic symptoms)? @ -Rhabdomyolysis Side effects of treatment? @ -No Exacerbation, Progression, or Severe Exacerbation? @ -No Poses a threat to life or bodily function? How? (Chest pain, [place], [place], pneumonia, PE, COPD, DKA, ARF, appy, cholecystitis, CVA, Diverticulitis, Homicidal, S uicidal, threat to staff... and all critical care pts) @ -yes - Lab Data Result diagrams: 01/19/25 12:47 01/19/25 12:47 Lab Results 01/19/25 01/19/25 01/19/25 Range/Units 12:47 12:47 12:47 WBC 12.41 H (4.50-10.00) 10*3/uL RBC 5.80 H (4.40-5.60) 10*6/uL Hgb 17.2 H (13.0-17.0) g/dL Hct 51.3 H (39.6-50.0) % MCV 88.4 (80.0-97.0) fL MCH 29.7 (27.0-32.0) pg MCHC 33.5 (32.0-37.0) g/dL Plt Count 224 (140-440) 10*3/uL MPV 11.3 (9.5-12.2) fL Immature Gran % (Auto) 0.2 % Neutrophils % 77.9 % Lymphocytes % 7.4 % Monocytes % 13.2 % Eosinophils % 0.8 % Basophils % 0.5 % Immature Gran # 0.03 (0.00-0.04) 10*3/uL Neutrophils # 9.66 H (1.80-7.70) 10*3/uL Lymphocytes # 0.92 (0.90-5.00) 10*3/uL Monocytes # 1.64 H (0.20-1.00) 10*3/uL Eosinophils # 0.10 (0.04-0.35) 10*3/uL Basophils # 0.06 (0.00-0.10) 10*3/uL PT 11.6 (10.0-12.5) sec INR 1.1 (<1.2) APTT 22.2 (22.0-30.0) sec Sodium 140 (137-145) mmol/L Potassium 4.4 (3.5-5.1) mmol/L Chloride 100 (98-107) mmol/L Carbon Dioxide 27 (22-30) mmol/L Anion Gap 13 mmol/L BUN 22 H (9-20) mg/dL Creatinine 1.02 (0.66-1.25) mg/dL Est GFR (CKD-EPI)AfAm 88 (>60 ml/min/1.73 sqM) Est GFR (CKD-EPI)NonAf 76 (>60 ml/min/1.73 sqM) Glucose 113 H (74-99) mg/dL Calcium 10.8 H (8.4-10.2) mg/dL Total Bilirubin 1.1 (0.2-1.3) mg/dL AST 556 H (17-59) U/L ALT 203 H (4-49) U/L Alkaline Phosphatase 81 (38-126) U/L Creatine Kinase 11496 H* (55-170) U/L Total Protein 7.5 (6.3-8.2) g/dL Albumin 4.4 (3.5-5.0) g/dL Serum Alcohol 35 mg/dL Disposition Clinical Impression: Rhabdomyolysis Disposition: ADMITTED IP TO THIS [facility] Condition: Fair Referrals: Bunny Phipps MD [Primary Care Provider] - 1-2 days Decision Time: 15:30
[2025-01-19 13:12] LABS: Basophils # (A) 0.06 10*3/uL (0.00-0.10); Basophils % (A) 0.5 %; Eosinophils # (A) 0.10 10*3/uL (0.04-0.35); Eosinophils % (A) 0.8 %; HCT 51.3 % (39.6-50.0); HGB 17.2 g/dL (13.0-17.0); Lymphocytes # (A) 0.92 10*3/uL (0.90-5.00); Lymphocytes % (A) 7.4 %; MCH 29.7 pg (27.0-32.0); MCHC 33.5 g/dL (32.0-37.0); MCV 88.4 fL (80.0-97.0); Monocytes # (A) 1.64 10*3/uL (0.20-1.00); Monocytes % (A) 13.2 %; Neutrophils # (A) 9.66 10*3/uL (1.80-7.70); Neutrophils % (A) 77.9 %; Platelet Count 224 10*3/uL (140-440); RBC 5.80 10*6/uL (4.40-5.60); RDW 14.9 % (11.5-14.5); WBC 12.41 10*3/uL (4.50-10.00)
[2025-01-19 13:25] LABS: ALT 203 U/L (4-49); AST 556 U/L (17-59); African American GFR (CKD) 88 (>60 ml/min/1.73 sqM); Albumin 4.4 g/dL (3.5-5.0); Alkaline Phosphatase 81 U/L (38-126); Anion Gap 13 mmol/L; Blood Urea Nitrogen 22 mg/dL (9-20); Calcium 10.8 mg/dL (8.4-10.2); Carbon Dioxide 27 mmol/L (22-30); Chloride 100 mmol/L (98-107); Glucose 113 mg/dL (74-99); Non-African American GFR(CKD) 76 (>60 ml/min/1.73 sqM); Potassium 4.4 mmol/L (3.5-5.1); Sodium 140 mmol/L (137-145); Total Protein 7.5 g/dL (6.3-8.2)
--- NOTE | 2025-01-19 13:31 | CT ---
EXAMINATION TYPE: CT brain tabathaine wo con DATE OF EXAM: 01/19/2025 12:34 PM COMPARISON: 11/10/2024 CLINICAL INDICATION: Male, 69 years old with history of fall, FALL ON THINNERS, pain TECHNIQUE: CT of the brain is performed utilizing 3 mm thick sections through the posterior fossa and 3 mm thick sections through the remaining calvarium. Study is performed within 24 hours of arrival to the hospital. Contrast used: mL of , (none if empty) CT DLP: 1481.1 mGycm, Automated exposure control for dose reduction was used. FINDINGS: No abnormal hyperdensity is present to suggest an acute intracranial hemorrhage. No mass lesion is evident. No acute infarcts are evident. Periventricular white matter hypodensity is present, likely on the ba sis of chronic white matter ischemic changes. This may be greater in the left occipital and right rahat ershed regions. Findings are stable from comparison Ventricles and sulci are prominent for the patient age. Paranasal sinuses and mastoid air cells within the sivli-oj-wlvs are clear. IMPRESSIONS: 1. No acute intracranial process. Follow-up MRI can be performed as clinically indicated. 2. Chronic appearing periventricular white matter ischemic changes CT cervical spine. COMPARISON: 11/10/2024 TECHNIQUE: CT of the cervical spine is performed in the axial plane at 2 mm thick sections. Reconstr ucted images in the coronal, and sagittal plane are reviewed on the computer. FINDINGS: No acute fractures are evident. Vertebral body alignment is normal. There is narrowing of disc height at C4-5-7. Anterior vertebral body spurring is present C4-C7. Some posterior endplate spurring is present appears greatest at C5-C6 C6-7. Prevertebral space appears nor mal. Findings appear stable. Vertebral body heights are preserved. No spinal canal stenosis is evident. Mild foraminal narrowing is present in the lower cervical spine due to uncovertebral joint hypertroph y. IMPRESSION: 1. Degenerative disc changes mid to lower cervical spine [facility], Workstation: [facility], 01/19/2025 1:28 PM
--- NOTE | 2025-01-19 13:40 | CT ---
EXAMINATION TYPE: CT abdomen pelvis wo con DATE OF EXAM: 01/19/2025 12:34 PM COMPARISON: None. CLINICAL INDICATION: Male, 69 years old with history of fall, FALL ON THINNERS TECHNIQUE: Axial images were obtained from above the diaphragm to the pubic rami in the axial plane a t 5 mm thick sections. Reconstructed images are reviewed on the computer in the coronal plane. CONTRAST: mL of . Study performed without Oral Contrast DLP: 750.7 mGycm, Automated exposure control for dose reduction was used. FINDINGS: Limited CT sections are obtained the lung bases. The lung bases are clear. Mild coronary artery joni cification is present. CT ABDOMEN: Liver: Normal Spleen: Normal Pancreas: Normal Adrenal glands: The adrenal glands are normal. Gallbladder: Normal Kidneys: No masses are evident. No hydronephrosis is present. There is a 4.0 cm cyst inferior pole right kidney. No renal stones are evident Aorta: Vascular calcification is within the aorta. Inferior vena cava: Normal. CT PELVIS: Loops of bowel within the abdomen and pelvis are normal. There are loops of bowel which are inco mpletely distended or lack oral contrast limiting their evaluation. Appendix: Not visualized Urinary bladder: Normal. Genitourinary structures: Prostate appears unremarkable Osseous structures: No suspicious lytic or sclerotic lesions. No acute fractures identified. IMPRESSION: 1. Right renal cyst. 2. No acute posttraumatic change is evident [facility], Workstation: [facility], 01/19/2025 1:38 PM
[2025-01-19 13:59] LABS: INR 1.1 (<1.2); Partial Thromboplastin Time 22.2 sec (22.0-30.0); Prothrombin Time 11.6 sec (10.0-12.5)
--- NOTE | 2025-01-19 14:13 | XR ---
EXAMINATION TYPE: XR chest 2V, XR pelvis AP view DATE OF EXAM: 01/19/2025 2:05 PM COMPARISON: Chest 11/10/2024 CLINICAL INDICATION: Male, 69 years old with history of fall, pain FINDINGS: Chest: Similar asymmetric elevation right hemidiaphragm. Heart upper limits of normal in size. Pulmonary vas culature within normal limits. Mild interstitial prominence is unchanged. There is a band of atelecta sis or scar anterior midlung. No consolidation or pleural effusion. Pelvis: SI joints appear symmetric and intact as does the pubic symphysis. Bilateral hips are intact. Hip teddy nt space is maintained. Right-sided pelvic phleboliths. No acute fracture, subluxation, dislocation s een. IMPRESSION: 1. Chest: Chronic changes, possible bronchitis or chronic asthma. Otherwise, no acute cardiopulmonary process. Similar asymmetric elevation right hemidiaphragm. If concern for hemidiaphragmatic paralysis, a fluor oscopic sniff test could be performed. 2. Pelvis: No acute osseous abnormality seen. [facility], Workstation: [email or web address], 01/19/2025 2:11 PM
[2025-01-19 14:54] LABS: Creatine Kinase 15524 U/L (55-170)
[2025-01-19] MEDS: SODIUM CHLORIDE 0.9% 1,000 ML IV STA (15:05)
[2025-01-19] MEDS ORDERED: NALOXONE 0.4 MG/ML 1 ML VIAL IV PRN (15:26)
[2025-01-19] MEDS ORDERED: LORazepam 0.5 MG TAB PO PRN (16:19)
[2025-01-19] MEDS ORDERED: LORazepam 1 MG TAB PO PRN ×2 (16:19)
--- NOTE | 2025-01-19 16:23 | P.HPIM ---
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 He denies any LOC. He reports hitting his head. Unsure of down time. Reports occasional EtOH use. EMS was called to bring the patient to the ED. In the ED he underwent extensive evaluation. BP 115/78, HR 112, T 99.1F, RR 20, 99% on RA. CBC, Coag panel, CMP significant for WBC 12.41, RBC 5.8, Hg 17.2, Hct 51.3, BUN 22, glu 113, a 10.8, AST 5556, ALT 203. EtOH 35. [place] [address]. CT head and C-spine no acute abnormality. CT AP right renal cyst. CXR and Pelvic XR no acute abnormality. EKG sinus tachycardia rate of 103. Admitted for further w orkup and management. General: no distress, appears at stated age Derm: warm, dry Head: atraumatic, normocephalic, symmetric Eyes: Pupils non reactive. Mouth: no lip lesion, mucus membranes moist Cardiovascular: S1 S2 tachy. No murmur. Lungs: Decreased BS bilaterally, no accessory muscle use Ext: no gross muscle atrophy, no edema, no contractures Neuro: CN II-XII grossly intact, 4/5 strength ELISHA and LLE, 5/5 RU and RLE, sensation intact to touch throughout. Psych: AO x 3, sluggish to respond Based on my assessment of this patient, this patient meets a high complexity level of care. Acute rhabdomyolysis: Traumatic. Start NS at 200 cc/hr. Monitor renal function. Repeat CPK in the AM. Fall precautions. PT and OT consult. SIRS: Likely due to above. No signs of active infection. Monitor. Alcohol intoxication: Patient reports occasional drinking. However, suspect more chronic use. Start CIWA protocol with Ativan PRN. Start folic acid, Thiamine and MVI. Obtain UDS. Transaminitis: Likely due to rhabdo + EtoH abuse. Hold Lipitor. IV hydration as above. Repeat CMP in the AM. Hypercalcemia: Likely due to dehydration. IV hydration as above. Repeat CMP in the AM. Polycythemia: Likely due to dehydration. IV hydration as above. History of CVA: Plavix 75 mg PO QD. Hold Lipitor. HTN: Coreg 12.5 mg PO BID. Losartan 50 mg PO QD. HLD: Hold Lipitor. WPW syndrome CODE STATUS: FULL CODE DVT Prophylaxis: Lovenox. GI Prophylaxis: Designated medical POA if patient is not able to make medical decisions for themselves: Sister I have reviewed the following aws consultant notes: ED note. I have reviewed the results of the following tests: As above. I have ordered the following tests: As above. I have discussed the care of this patient with the following independent historian: BETH. I have independently interpreted the following test below: EKG. I have discussed the management of this patient with the following physician: Past Medical History Past Medical History: COPD, CVA/TIA, Myocardial Infarction ([place]), Neurologic Disorder Additional Past Medical History / Comment(s): [place] Parkinsons White symdrome, vertigo, spinal injuries, Last Myocardial Infarction Date:: 2011 History of Any Multi-Drug Resistant Organisms: None Reported Past Surgical History: Cardiac Ablation Additional Past Surgical History / Comment(s): CTS surguries Past Anesthesia/Blood Transfusion Reactions: No Reported Reaction Past Psychological History: ADD/ADHD, Anxiety, Bipolar, Depression, PTSD, Schizo phrenia Smoking Status: Vaper Past Alcohol Use History: Occasional Past Drug Use History: None Reported Medications and Allergies Home Medications Medication Instructions Recorded Confirmed Type Atorvastatin [Lipitor] 20 mg PO HS tab 11/14/24 01/19/25 Rx Clopidogrel [Plavix] 75 mg PO DAILY tab 11/14/24 01/19/25 Rx Cetirizine HCl 10 mg PO DAILY 01/19/25 01/19/25 History Gabapentin 300 mg PO BID 01/19/25 01/19/25 History HYDROcodone/APAP 5-325MG [[place] 1 tab PO TID PRN 01/19/25 01/19/25 History 5-325] Losartan Potassium 50 mg PO DAILY 01/19/25 01/19/25 History carvediloL [Coreg] 12.5 mg PO BID-W/MEALS 01/19/25 01/19/25 History Allergies Allergy/AdvReac Type Severity Reaction Status Date / Time acetaminophen [From Tylenol] AdvReac Nausea Verified 01/19/25 12:45 ibuprofen [From Motrin] AdvReac Vomiting Verified 01/19/25 12:45 indomethacin [From Indocin] AdvReac Nausea Verified 01/19/25 12:45 propoxyphene [From Darvon] AdvReac Nausea Verified 01/19/25 12:45 Physical Exam Vitals: Vital Signs Temp Pulse Resp BP Pulse Ox 01/19/25 14:45 113 H 22 105/80 94 L 01/19/25 13:29 105 H 22 155/99 98 01/19/25 12:10 99.1 F 112 H 20 115/78 99 Intake and Output 01/19/25 01/19/25 01/19/25 06:59 14:59 22:59 Other: Weight 85.275 kg Results CBC & Chem 7: 01/19/25 12:47 01/19/25 12:47 Labs: Abnormal Lab Results - Last 24 Hours (Table) 01/19/25 01/19/25 Range/Units 12:47 12:47 WBC 12.41 H (4.50-10.00) 10*3/uL RBC 5.80 H (4.40-5.60) 10*6/uL Hgb 17.2 H (13.0-17.0) g/dL Hct 51.3 H (39.6-50.0) % Neutrophils # 9.66 H (1.80-7.70) 10*3/uL Monocytes # 1.64 H (0.20-1.00) 10*3/uL BUN 22 H (9-20) mg/dL Glucose 113 H (74-99) mg/dL Calcium 10.8 H (8.4-10.2) mg/dL AST 556 H (17-59) U/L ALT 203 H (4-49) U/L Creatine Kinase 40871 H* (55-170) U/L
[2025-01-19] MEDS: LORazepam 1 MG TAB PO PRN (21:30)
[2025-01-19] MEDS: GABAPENTIN 300 MG CAP PO SCH (22:15)
[2025-01-20 04:56] LABS: ALT 123 U/L (4-49); AST 223 U/L (17-59); African American GFR (CKD) >90 (>60 ml/min/1.73 sqM); Albumin 2.9 g/dL (3.5-5.0); Albumin/Globulin Ratio 1.3; Alkaline Phosphatase 66 U/L (38-126); Anion Gap 7 mmol/L; Blood Urea Nitrogen 22 mg/dL (9-20); Calcium 9.7 mg/dL (8.4-10.2); Carbon Dioxide 26 mmol/L (22-30); Chloride 104 mmol/L (98-107); Globulin 2.3 g/dL; Glucose 96 mg/dL (74-99); Non-African American GFR(CKD) >90 (>60 ml/min/1.73 sqM); Potassium 4.2 mmol/L (3.5-5.1); Sodium 137 mmol/L (137-145); Total Protein 5.2 g/dL (6.3-8.2)
[2025-01-20] MEDS: ENOXAPARIN 40 MG/0.4 ML SYRINGE SQ SCH (09:54)
[2025-01-20] MEDS: LOSARTAN 50 MG TAB PO SCH (09:55)
[2025-01-20] MEDS: LORATADINE 10 MG TAB PO SCH (09:55)
[2025-01-20] MEDS: FOLIC ACID 1 MG TAB PO SCH (09:55)
[2025-01-20] MEDS: CLOPIDOGREL 75 MG TAB PO SCH (09:55)
[2025-01-20] MEDS: THIAMINE 100 MG TAB PO SCH (09:55)
[2025-01-20] MEDS: MULTIVITAMINS, THERA 1 EACH TAB PO SCH (09:55)
--- NOTE | 2025-01-20 11:33 | P.PN ---
Subjective Progress Note Date: 01/20/25 69 year old M with PMH WPW syndrome, CVA with L sided residual weakness, HTN, HLD presents to the ED after losing his footing and falling yesterday around 11PM. He denies any LOC. He reports hitting his head. Unsure of down time. Reports occasional EtOH use. EMS was called to bring the patient to the ED. In the ED he underwent extensive evaluation. BP 115/78, HR 112, T 99.1F, RR 20, 99% on RA. CBC, Coag panel, CMP significant for WBC 12.41, RBC 5.8, Hg 17.2, Hct 51.3, BUN 22, glu 113, a 10.8, AST 5556, ALT 203. EtOH 35. [place] [address]. CT head and C-spine no acute abnormality. CT AP right renal cyst. CXR and Pelvic XR no acute abnormality. EKG sinus tachycardia rate of 103. Admitted for further workup and management. 01/20 Patient was seen and examined. He reports pain mostly L back and neck stiffness. Pain is 10/10 severity. CMP significant for BUN 22, AST 223, ALT 123, alb 2.9. CPK 4483. General: no distress, appears at stated age Derm: warm, dry Head: atraumatic, normocephalic, symmetric Eyes: Pupils non reactive. Mouth: no lip lesion, mucus membranes moist Cardiovascular: S1 S2 reg. No murmur. Lungs: Decreased BS bilaterally, no accessory muscle use Ext: no gross muscle atrophy, no edema, no contractures Neuro: CN II-XII grossly intact, 4/5 strength ELISHA and LLE, 5/5 RU and RLE, sensation intact to touch throughout. Psych: AO x 3, sluggish to respond Based on my assessment of this patient, this patient meets a high complexity level of care. Acute rhabdomyolysis: Traumatic. Encourage hydration by mouth. Monitor renal function. Repeat CPK in the AM. Fall precautions. PT and OT consult. SIRS: Likely due to above. No signs of active infection. Monitor. Alcohol intoxication: Patient reports occasional drinking. However, suspect more chronic use. Start CIWA protocol with Ativan PRN. Folic acid, Thiamine and MVI. Obtain UDS. Transaminitis: Likely due to rhabdo + EtoH abuse. Hold Lipitor. Encourage hydration by mouth. Repeat CMP in the AM. Polycythemia: Likely due to dehydration. Encourage hydration by mouth. History of CVA: Plavix 75 mg PO QD. Hold Lipitor. HTN: Coreg 12.5 mg PO BID. Losartan 50 mg PO QD. HLD: Hold Lipitor. WPW syndrome Resolved: HyperCa PT and OT consulted. Pending clinically improvement. Anticipate DC in 1-2 days. CODE STATUS: FULL CODE DVT Prophylaxis: Lovenox. GI Prophylaxis: Designated medical POA if patient is not able to make medical decisions for themselves: Sister I have reviewed the following configuration management consultant notes: I have reviewed the results of the following tests: CMP, CPK. I have ordered the following tests: CMP, CPK in the AM. I have discussed the care of this patient with the following independent historian: BETH. I have independently interpreted the following test below: I have discussed the management of this patient with the following physician: Objective - Vital Signs Vital signs: Vital Signs Temp 97.6 F 01/20/25 07:20 Pulse 72 01/20/25 07:20 Resp 17 01/20/25 07:20 BP 176/92 01/20/25 07:20 Pulse Ox 96 01/20/25 07:20 FiO2 Intake & Output 01/19/25 01/20/25 01/20/25 18:59 06:59 18:59 Weight 85.275 kg 85.275 kg - Labs CBC & Chem 7: 01/19/25 12:47 01/20/25 03:47 Labs: Abnormal Lab Results - Last 24 Hours (Table) 01/19/25 01/19/25 01/20/25 Range/Units 12:47 12:47 03:47 WBC 12.41 H (4.50-10.00) 10*3/uL RBC 5.80 H (4.40-5.60) 10*6/uL Hgb 17.2 H (13.0-17.0) g/dL Hct 51.3 H (39.6-50.0) % Neutrophils # 9.66 H (1.80-7.70) 10*3/uL Monocytes # 1.64 H (0.20-1.00) 10*3/uL BUN 22 H (9-20) mg/dL Glucose 113 H (74-99) mg/dL Calcium 10.8 H (8.4-10.2) mg/dL AST 556 H (17-59) U/L ALT 203 H (4-49) U/L Creatine Kinase 23073 H* 4483 H* (55-170) U/L Total Protein (6.3-8.2) g/dL Albumin (3.5-5.0) g/dL 01/20/25 Range/Units 03:47 WBC (4.50-10.00) 10*3/uL RBC (4.40-5.60) 10*6/uL Hgb (13.0-17.0) g/dL Hct (39.6-50.0) % Neutrophils # (1.80-7.70) 10*3/uL Monocytes # (0.20-1.00) 10*3/uL BUN 22 H (9-20) mg/dL Glucose (74-99) mg/dL Calcium (8.4-10.2) mg/dL AST 223 H (17-59) U/L ALT 123 H (4-49) U/L Creatine Kinase (55-170) U/L Total Protein 5.2 L (6.3-8.2) g/dL Albumin 2.9 L (3.5-5.0) g/dL
--- NOTE | 2025-01-20 12:09 | P.NPCON ---
History of Present Illness - History of Present Illness 69 year old M with PMH WPW syndrome, CVA with L sided residual weakness, HTN, HLD depression and stroke, presents to the ED after losing his footing and falling yesterday around 11PM. He denies any LOC. He reports hitting his head. Unsure of down time. Nephrology consulted for CYNDIE following Rhabdomyolysis. CPK 99301. Creatinine is 1.2 baseline is 0.75 (11/15/24). Patient is seen at bedside today, he has no acute complaints, reports eating and urinating. urine color is clear to yellow. no CVA tenderness, left side abdominal pain. CT head and C-spine no acute abnormality. CT AP right renal cyst. CXR and Pelvic XR no acute abnormality. Past Medical History Past Medical History: COPD, CVA/TIA, Myocardial Infarction ([place]), Neurologic Disorder Additional Past Medical History / Comment(s): [place] Parkinsons White symdrome, vertigo, spinal injuries, Last Myocardial Infarction Date:: 2011 History of Any Multi-Drug Resistant Organisms: None Reported Past Surgical History: Cardiac Ablation Additional Past Surgical History / Comment(s): CTS surguries Past Anesthesia/Blood Transfusion Reactions: No Reported Reaction Past Psychological History: ADD/ADHD, Anxiety, Bipolar, Depression, PTSD, Schizophrenia Smoking Status: Vaper Past Alcohol Use History: Occasional Past Drug Use History: None Reported Medications and Allergies Home Medications Medication Instructions Recorded Confirmed Type Atorvastatin [Lipitor] 20 mg PO HS tab 11/14/24 01/19/25 Rx Clopidogrel [Plavix] 75 mg PO DAILY tab 11/14/24 01/19/25 Rx Cetirizine HCl 10 mg PO DAILY 01/19/25 01/19/25 History Gabapentin 300 mg PO BID 01/19/25 01/19/25 History HYDROcodone/APAP 5-325MG [[facility] 1 tab PO TID PRN 01/19/25 01/19/25 History 5-325] Losartan Potassium 50 mg PO DAILY 01/19/25 01/19/25 History carvediloL [Coreg] 12.5 mg PO BID-W/MEALS 01/19/25 01/19/25 History Allergies Allergy/AdvReac Type Severity Reaction Status Date / Time acetaminophen [From Tylenol] AdvReac Nausea Verified 01/19/25 12:45 ibuprofen [From Motrin] AdvReac Vomiting Verified 01/19/25 12:45 indomethacin [From Indocin] AdvReac Nausea Verified 01/19/25 12:45 propoxyphene [From Darvon] AdvReac Nausea Verified 01/19/25 12:45 Physical Exam Vitals: Vital Signs Temp Pulse Pulse Resp BP BP Pulse Ox 01/20/25 07:20 97.6 F 72 17 176/92 96 01/20/25 00:53 97.6 F 86 18 139/89 95 01/19/25 22:00 87 16 115/83 97 01/19/25 19:19 99.6 F 90 16 108/80 95 01/19/25 18:25 99.2 F 113 H 20 117/82 96 01/19/25 14:45 113 H 22 105/80 94 L 01/19/25 13:29 105 H 22 155/99 98 01/19/25 12:10 99.1 F 112 H 20 115/78 99 Intake and Output 01/19/25 01/20/25 01/20/25 22:59 06:59 14:59 Other: Weight 85.275 kg General: Patient appears well, no acute distress, he is Sleepy, wakes up when talked to Heart: S1 and S2, no murmurs heard Lungs: Clear to auscultation bilaterally. MSK: NO LE edema Abdomen: soft, no point tenderness Results - Lab Results Most recent lab results Calcium 9.7 mg/dL (8.4-10.2) 01/20/25 03:47 01/19/25 12:47 01/21/25 03:23 Assessment and Plan Assessment: 1. CYNDIE secondary to Rhabdomyolysois. non oliguric, ATN. check UA Patient received 2000 ml 0.9% saline. [place] 14141, today is 4483 Creatinine was 1.02, today 0.75 2. Status post fall 3. Hypertension. on Cozar ok to continue ARBs 4. Alcohol intoxication 5. Hypercalcemia, most likely associated with volume contraction/depletion on initial admission. Improved. No calcium supplements noted on med list. 6. Elevated liver enzymes secondary to rhabdomyolysis Vs. Alcoholic hepatitis, improving 7. Right renal cyst, benign. Plan: Continue IV fluids Repeat BMP in am Check UA ok to continue Cozar as the Blood pressure is elevated Monitor for DTs Thank you for the consultation. We will continue to follow the patient with you during his hospitalization. Patient is seen and examined. Agree with resident's findings, assessment and plan.
[2025-01-20] MEDS: SODIUM CHLORIDE 0.9% 1,000 ML IV SCH (13:38)
[2025-01-20] MEDS: MORPHINE SULFATE 2 MG/ML SYRINGE IVP PRN (21:49)
[2025-01-20 23:44] LABS: Bilirubin,Urine Negative (Negative); Blood,Urine Negative (Negative); Color,Urine Yellow; Glucose,Urine (UA) Negative (Negative); Ketones,Urine Negative (Negative); Leukocyte Esterase,Urine Negative (Negative); Nitrite,Urine Negative (Negative); PH, Urine 6.0 (5.0-8.0); Protein,Urine Negative (Negative); Specific Gravity,Urine 1.023 (1.001-1.035); Urobilinogen,Urine <2.0 mg/dL (<2.0)
[2025-01-21 00:03] LABS: Barbiturate Screen,Urine Not Detected (NotDetected); Benzodiazepines Screen,Urine Detected (NotDetected); Opiate Screen,Urine Detected (NotDetected); Oxycodone Screen, Urine Not Detected (NotDetected); Phencyclidine Screen,Urine Not Detected (NotDetected); Tricyclic Antidepressant,Urine Detected (NotDetected); Urn Cannabinoid Scrn Not Detected (NotDetected)
[2025-01-21 04:24] LABS: ALT 102 U/L (4-49); AST 123 U/L (17-59); African American GFR (CKD) >90 (>60 ml/min/1.73 sqM); Albumin 2.7 g/dL (3.5-5.0); Albumin/Globulin Ratio 1.2; Alkaline Phosphatase 60 U/L (38-126); Anion Gap 8 mmol/L; Blood Urea Nitrogen 17 mg/dL (9-20); Calcium 9.5 mg/dL (8.4-10.2); Carbon Dioxide 24 mmol/L (22-30); Chloride 105 mmol/L (98-107); Globulin 2.3 g/dL; Glucose 108 mg/dL (74-99); Non-African American GFR(CKD) >90 (>60 ml/min/1.73 sqM); Potassium 3.8 mmol/L (3.5-5.1); Sodium 137 mmol/L (137-145); Total Protein 5.0 g/dL (6.3-8.2)
[2025-01-21 04:42] LABS: Creatine Kinase 2211 U/L (55-170)
[2025-01-21] MEDS: HYDROcodone/APAP 5-325MG 1 EACH TAB PO PRN (06:47)
--- NOTE | 2025-01-21 13:02 | P.PN ---
Subjective Patient is seen at bedside today, Awake, alert, and oriented. Patient has no acute complaints, reports eating and urinating. urine color is clear to yellow. no CVA tenderness, left side tenderness. Objective - Vital Signs Vital signs: Vital Signs Temp 98.4 F 01/21/25 06:43 Pulse 75 01/21/25 06:43 Resp 18 01/21/25 06:43 BP 129/72 01/21/25 06:43 Pulse Ox 97 01/21/25 06:43 FiO2 Intake & Output 01/20/25 01/21/25 01/21/25 18:59 06:59 18:59 Intake Total 1560 Output Total 450 Balance -450 1560 Intake: Intake, IV Titration 1560 Amount Sodium Chloride 0.9% 1, 1560 000 ml @ 130 mls/hr IV . Q7H42M [facility] Rx#:[id number] Output: Urine 450 Other: # Voids 3 2 1 # Bowel Movements 1 - Exam General: Patient appears well, no acute distress, he is Sleepy, wakes up when talked to Heart: S1 and S2, no murmurs heard Lungs: Clear to auscultation bilaterally. MSK: NO LE edema, Left sided tenderness from the fall. Abdomen: soft, non tender. - Labs CBC & Chem 7: 01/19/25 12:47 01/21/25 03:23 Labs: Abnormal Lab Results - Last 24 Hours (Table) 01/20/25 01/21/25 Range/Units 23:15 03:23 Creatinine 0.61 L (0.66-1.25) mg/dL Glucose 108 H (74-99) mg/dL AST 123 H (17-59) U/L ALT 102 H (4-49) U/L Creatine Kinase 2211 H* (55-170) U/L Total Protein 5.0 L (6.3-8.2) g/dL Albumin 2.7 L (3.5-5.0) g/dL Urine Opiates Screen Detected H (NotDetected) U Tricyclic Antidepress Detected H (NotDetected) U Benzodiazepines Scrn Detected H (NotDetected) Assessment and Plan Plan: 1. CYNDIE secondary to Rhabdomyolysois. non oliguric, ATN. check UA Patient received 2000 ml 0.9% saline. CPK was 24172, today is 2211 Creatinine was 1.02, today 0.61, UA shows clear yellow urine. 2. Status post fall 3. Hypertension. on Cozar ok to continue ARBs 4. Alcohol intoxication 5. Hypercalcemia, most likely associated with volume contraction/depletion on initial admission. Improved. No calcium supplements noted on med list. 6. Elevated liver enzymes secondary to rhabdomyolysis Vs. Alcoholic hepatitis, improving 7. Right renal cyst, benign. Plan: Discontinue IV fluids on discharge clear to discharge from nephrology standpoint. Patient is seen and examined. Agree with resident's findings, assessment and plan.
--- NOTE | 2025-01-21 13:17 | P.PN ---
Subjective Progress Note Date: 01/21/25 69 year old M with PMH WPW syndrome, CVA with L sided residual weakness, HTN, HLD presents to the ED after losing his footing and falling yesterday around 11PM. He denies any LOC. He reports hitting his head. Unsure of down time. Reports occasional EtOH use. EMS was called to bring the patient to the ED. In the ED he underwent extensive evaluation. BP 115/78, HR 112, T 99.1F, RR 20, 99% on RA. CBC, Coag panel, CMP significant for WBC 12.41, RBC 5.8, Hg 17.2, Hct 51.3, BUN 22, glu 113, a 10.8, AST 5556, ALT 203. EtOH [address] [address] head and C-spine no acute abnormality. CT AP right renal cyst. CXR and Pelvic XR no acute abnormality. EKG sinus tachycardia rate of 103. Admitted for further workup and management. 01/20 Patient was seen and examined. He reports pain mostly L back and neck stiffness. Pain is 10/10 severity. CMP significant for BUN 22, AST 223, ALT 123, alb 2.9. CPK 4483. 01/21 Patient was seen and examined. Doing well. Wanting SNF. Insurance auth pending. CMP significant for Cr 0.61, AST 123, ALT 102, alb 2.7. CPK 2211. General: no distress, appears at stated age Derm: warm, dry Head: atraumatic, normocephalic, symmetric Eyes: Pupils non reactive. Mouth: no lip lesion, mucus membranes moist Cardiovascular: S1 S2 reg. No murmur. Lungs: Decreased BS bilaterally, no accessory muscle use Ext: no gross muscle atrophy, no edema, no contractures Neuro: CN II-XII grossly intact, 4/5 strength ELISHA and LLE, 5/5 RU and RLE, sensation intact to touch throughout. Psych: AO x 3, sluggish to respond Based on my assessment of this patient, this patient meets a high complexity level of care. Acute rhabdomyolysis: Traumatic. Encourage hydration by mouth. Monitor renal function Fall precautions. PT and OT consult. SIRS: Likely due to above. No signs of active infection. Monitor. Alcohol intoxication: Patient reports occasional drinking. However, suspect more chronic use. CIWA protocol with Ativan PRN. Folic acid, Thiamine and MVI. Obtain UDS. Transaminitis: Likely due to rhabdo + EtoH abuse. Hold Lipitor. Encourage hydration by mouth. Polycythemia: Likely due to dehydration. Encourage hydration by mouth. History of CVA: Plavix 75 mg PO QD. Hold Lipitor. HTN: Coreg 12.5 mg PO BID. Losartan 50 mg PO QD. HLD: Hold Lipitor. WPW syndrome Resolved: HyperCa PT and OT consulted. Plans for SNF. Medically stable. Insurance auth pending. CODE STATUS: FULL CODE DVT Prophylaxis: Lovenox. GI Prophylaxis: Designated medical POA if patient is not able to make medical decisions for themselves: Sister I have reviewed the following vendor management consultant notes: Nephro. I have reviewed the results of the following tests: CMP, CPK. I have ordered the following tests: I have discussed the care of this patient with the following independent historian: Case management. I have independently interpreted the following test below: I have discussed the management of this patient with the following physician: Dr. Andre. Objective - Vital Signs Vital signs: Vital Signs Temp 98.4 F 01/21/25 06:43 Pulse 75 01/21/25 06:43 Resp 18 01/21/25 06:43 BP 129/72 01/21/25 06:43 Pulse Ox 97 01/21/25 06:43 FiO2 Intake & Output 01/20/25 01/21/25 01/21/25 18:59 06:59 18:59 Intake Total 1560 Output Total 450 Balance -450 1560 Intake: Intake, IV Titration 1560 Amount Sodium Chloride 0.9% 1, 1560 000 ml @ 130 mls/hr IV . Q7H42M [facility] Rx#:[id number] Output: Urine 450 Other: # Voids 3 2 1 # Bowel Movements 1 - Labs CBC & Chem 7: 01/19/25 12:47 01/21/25 03:23 Labs: Abnormal Lab Results - Last 24 Hours (Table) 01/20/25 01/21/25 Range/Units 23:15 03:23 Creatinine 0.61 L (0.66-1.25) mg/dL Glucose 108 H (74-99) mg/dL AST 123 H (17-59) U/L ALT 102 H (4-49) U/L Creatine Kinase 2211 H* (55-170) U/L Total Protein 5.0 L (6.3-8.2) g/dL Albumin 2.7 L (3.5-5.0) g/dL Urine Opiates Screen Detected H (NotDetected) U Tricyclic Antidepress Detected H (NotDetected) U Benzodiazepines Scrn Detected H (NotDetected)
[2025-01-22 11:10] LABS: African American GFR (CKD) >90 (>60 ml/min/1.73 sqM); Anion Gap 5 mmol/L; Blood Urea Nitrogen 13 mg/dL (9-20); Calcium 9.3 mg/dL (8.4-10.2); Carbon Dioxide 30 mmol/L (22-30); Chloride 100 mmol/L (98-107); Glucose 124 mg/dL (74-99); Non-African American GFR(CKD) >90 (>60 ml/min/1.73 sqM); Potassium 3.7 mmol/L (3.5-5.1); Sodium 135 mmol/L (137-145)
--- NOTE | 2025-01-22 11:28 | P.PN ---
Subjective Progress Note Date: 01/22/25 69 year old M with PMH WPW syndrome, CVA with L sided residual weakness, HTN, HLD presents to the ED after losing his footing and falling yesterday around 11PM. He denies any LOC. He reports hitting his head. Unsure of down time. Reports occasional EtOH use. EMS was called to bring the patient to the ED. In the ED he underwent extensive evaluation. BP 115/78, HR 112, T 99.1F, RR 20, 99% on RA. CBC, Coag panel, CMP significant for WBC 12.41, RBC 5.8, Hg 17.2, Hct 51.3, BUN 22, glu 113, a 10.8, AST 5556, ALT 203. EtOH 35. [place] [address]. CT head and C-spine no acute abnormality. CT AP right renal cyst. CXR and Pelvic XR no acute abnormality. EKG sinus tachycardia rate of 103. Admitted for further workup and management. 01/20 Patient was seen and examined. He reports pain mostly L back and neck stiffness. Pain is 10/10 severity. CMP significant for BUN 22, AST 223, ALT 123, alb 2.9. CPK 4483. UDS + opiate, TCA, benzo. 01/21 Patient was seen and examined. Doing well. Wanting SNF. Insurance auth pending. CMP significant for Cr 0.61, AST 123, ALT 102, alb 2.7. CPK 2211. 01/22 Patient was seen and examined. Still in considerable amount of pain. Insurance auth still pending. No new labs done today. General: no distress, appears at stated age Derm: warm, dry Head: atraumatic, normocephalic, symmetric Eyes: Pupils non reactive. Mouth: no lip lesion, mucus membranes moist Cardiovascular: S1 S2 reg. No murmur. Lungs: Decreased BS bilaterally, no accessory muscle use Ext: no gross muscle atrophy, no edema, no contractures Neuro: CN II-XII grossly intact, 4/5 strength ELISHA and LLE, 5/5 RU and RLE, sen sation intact to touch throughout. Psych: AO x 3 Based on my assessment of this patient, this patient meets a high complexity level of care. Acute rhabdomyolysis: Traumatic. Encourage hydration by mouth. Monitor renal function Fall precautions. PT and OT consult. SIRS: Likely due to above. No signs of active infection. Monitor. Alcohol intoxication: Patient reports occasional drinking. However, suspect more chronic use. CIWA protocol with Ativan PRN. Folic acid, Thiamine and MVI. Transaminitis: Likely due to rhabdo + EtoH abuse. Hold Lipitor. Encourage hydration by mouth. Polycythemia: Likely due to dehydration. Encourage hydration by mouth. History of CVA: Plavix 75 mg PO QD. Hold Lipitor. HTN: Coreg 12.5 mg PO BID. Losartan 50 mg PO QD. HLD: Hold Lipitor. WPW syndrome Resolved: HyperCa PT and OT consulted. Plans for SNF. Medically stable. Insurance auth pending. CODE STATUS: FULL CODE DVT Prophylaxis: Lovenox. GI Prophylaxis: Designated medical POA if patient is not able to make medical decisions for themselves: Sister I have reviewed the following agriculture consultant notes: I have reviewed the results of the following tests: I have ordered the following tests: I have discussed the care of this patient with the following independent historian: Case management. I have independently interpreted the following test below: I have discussed the management of this patient with the following physician: Objective - Vital Signs Vital signs: Vital Signs Temp 98.3 F 01/22/25 07:10 Pulse 65 01/22/25 07:10 Resp 18 01/22/25 07:10 BP 154/89 01/22/25 07:10 Pulse Ox 97 01/22/25 07:10 FiO2 Intake & Output 01/21/25 01/22/25 01/22/25 18:59 06:59 18:59 Intake Total 2099 Output Total 2049 Balance 50 Intake: Oral 2099 Output: Urine 2049 Other: Voiding Method Toilet # Voids 1 # Bowel Movements 1 - Labs CBC & Chem 7: 01/19/25 12:47 01/21/25 03:23
[2025-01-22 11:29] LABS: Creatine Kinase 1016 U/L (55-170)
--- NOTE | 2025-01-22 13:25 | P.PN ---
Subjective Patient is seen at bedside today, Awake, alert, and oriented. Patient has no acute complaints, reports eating and urinating. urine color is clear to yellow. no CVA tenderness, left side tenderness. Objective - Vital Signs Vital signs: Vital Signs Temp 98.3 F 01/22/25 07:10 Pulse 65 01/22/25 07:10 Resp 18 01/22/25 07:10 BP 154/89 01/22/25 07:10 Pulse Ox 97 01/22/25 07:10 FiO2 Intake & Output 01/21/25 01/22/25 01/22/25 18:59 06:59 18:59 Intake Total 2100 Output Total 2049 Balance 50 Intake: Oral 2099 Output: Urine 2049 Other: # Voids 1 # Bowel Movements 1 - Exam General: Patient appears well, no acute distress, Alert and oriented, talkative. Heart: S1 and S2, no murmurs heard Lungs: Clear to auscultation bilaterally. MSK: No LE edema, Left sided tenderness from the fall. Abdomen: soft, non tender. [employer]' grossly intact - Labs CBC & Chem 7: 01/19/25 12:47 01/22/25 10:23 Assessment and Plan Assessment: 1. CYNDIE secondary to Rhabdomyolysois. non oliguric, ATN. check UA Patient received 2000 ml 0.9% saline. CPK was 91262, today is 1016 Creatinine was 1.02, toiday is 0.62, UA shows clear yellow urine. 2. Status post fall 3. Hypertension. on Cozar ok to continue ARBs 4. Alcohol intoxication 5. Hypercalcemia, most likely associated with volume contraction/depletion on initial admission. Improved. No calcium supplements noted on med list. 6. Elevated liver enzymes secondary to rhabdomyolysis Vs. Alcoholic hepatitis, improving 7. Right renal cyst, benign. Plan: Check Bmp, Creatinine Kinase clear to discharge from nephrology standpoint.
[2025-01-22] MEDS: oxyCODONE-APAP 10-325MG 1 EACH TAB PO PRN (18:20)
--- NOTE | 2025-01-23 10:46 | P.PN ---
Subjective Progress Note Date: 01/23/25 69 year old M with PMH WPW syndrome, CVA with L sided residual weakness, HTN, HLD presents to the ED after losing his footing and falling yesterday around 11PM. He denies any LOC. He reports hitting his head. Unsure of down time. Reports occasional EtOH use. EMS was called to bring the patient to the ED. In the ED he underwent extensive evaluation. BP 115/78, HR 112, T 99.1F, RR 20, 99% on RA. CBC, Coag panel, CMP significant for WBC 12.41, RBC 5.8, Hg 17.2, Hct 51.3, BUN 22, glu 113, a 10.8, AST 5556, ALT 203. EtOH [address]. [place] [address] head and C-spine no acute abnormality. CT AP right renal cyst. CXR and Pelvic XR no acute abnormality. EKG sinus tachycardia rate of 103. Admitted for further workup and management. 01/20 Patient was seen and examined. He reports pain mostly L back and neck stiffness. Pain is 10/10 severity. CMP significant for BUN 22, AST 223, ALT 123, alb 2.9. CPK 4483. UDS + opiate, TCA, benzo. 01/21 Patient was seen and examined. Doing well. Wanting SNF. Insurance auth pending. CMP significant for Cr 0.61, AST 123, ALT 102, alb 2.7. CPK 2211. 01/22 Patient was seen and examined. Still in considerable amount of pain. Insurance auth still pending. BMP shows Na 135, Cr 0.62, glu 124. CPK 1016. 01/23 Patient was seen and examined. Still in considerable amount of pain. Insurance auth still pending. No new labs done today. General: no distress, appears at stated age Derm: warm, dry Head: atraumatic, normocephalic, symmetric Eyes: Pupils non reactive. Mouth: no lip lesion, mucus membranes moist Cardiovascular: S1 S2 reg. No murmur. Lungs: Decreased BS bilaterally, no accessory muscle use Ext: no gross muscle atrophy, no edema, no contractures Neuro: CN II-XII grossly intact, 4/5 strength ELISHA and LLE, 5/5 RU and RLE, sensation intact to touch throughout. Psych: AO x 3 Based on my assessment of this patient, this patient meets a high complexity level of care. Acute rhabdomyolysis: Traumatic. Encourage hydration by mouth. Monitor renal function Fall precautions. PT and OT consult. SIRS: Likely due to above. No signs of active infection. Monitor. Alcohol intoxication: Patient reports occasional drinking. However, suspect more chronic use. CIWA protocol with Ativan PRN. Folic acid, Thiamine and MVI. Transaminitis: Likely due to rhabdo + EtoH abuse. Hold Lipitor. Encourage hydration by mouth. Polycythemia: Likely due to dehydration. Encourage hydration by mouth. History of CVA: Plavix 75 mg PO QD. Hold Lipitor. HTN: Coreg 12.5 mg PO BID. Losartan 50 mg PO QD. HLD: Hold Lipitor. WPW syndrome Resolved: HyperCa PT and OT consulted. Plans for SNF. Medically stable. Insurance auth pending. CODE STATUS: FULL CODE DVT Prophylaxis: Lovenox. GI Prophylaxis: Designated medical POA if patient is not able to make medical decisions for themselves: Sister I have reviewed the following credit consultant notes: I have reviewed the results of the following tests: BMP and CPK from yesterday. I have ordered the following tests: I have discussed the care of this patient with the following independent historian: Case management. I have independently interpreted the following test below: I have discussed the management of this patient with the following physician: Objective - Vital Signs Vital signs: Vital Signs Temp 98.5 F 01/23/25 07:01 Pulse 57 L 01/23/25 07:01 Resp 18 01/23/25 07:01 BP 147/82 01/23/25 07:01 Pulse Ox 97 01/23/25 07:01 FiO2 Intake & Output 01/22/25 01/23/25 01/23/25 18:59 06:59 18:59 Other: Voiding Method Toilet Toilet Urinal # Voids 5 3 - Labs CBC & Chem 7: 01/19/25 12:47 01/22/25 10:23 Labs: Abnormal Lab Results - Last 24 Hours (Table) 01/22/25 Range/Units 10:23 Sodium 135 L (137-145) mmol/L Creatinine 0.62 L (0.66-1.25) mg/dL Glucose 124 H (74-99) mg/dL Creatine Kinase 1016 H* (55-170) U/L
--- NOTE | 2025-01-23 12:53 | P.PN ---
Subjective Patient is seen at bedside today. He has no complains beside pain on the left side of his body from the fall, he reports eating, drinking well and urinating. Renal function has improved. Objective - Vital Signs Vital signs: Vital Signs Temp 98.8 F 01/23/25 01:20 Pulse 63 01/23/25 06:39 Resp 16 01/23/25 01:20 BP 149/92 01/23/25 06:39 Pulse Ox 95 01/23/25 01:20 FiO2 Intake & Output 01/22/25 01/23/25 01/23/25 18:59 06:59 18:59 Other: Voiding Method Toilet Toilet Urinal # Voids 5 3 - Exam General: Patient appears well, no acute distress, Alert and oriented, talkative. Heart: S1 and S2, no murmurs heard Lungs: Clear to auscultation bilaterally. MSK: No LE edema, Left sided tenderness from the fall. Abdomen: soft, non tender. NEUROPHYSIOLOGIST grossly intact - Labs CBC & Chem 7: 01/19/25 12:47 01/22/25 10:23 Labs: Abnormal Lab Results - Last 24 Hours (Table) 01/22/25 Range/Units 10:23 Sodium 135 L (137-145) mmol/L Creatinine 0.62 L (0.66-1.25) mg/dL Glucose 124 H (74-99) mg/dL Creatine Kinase 1016 H* (55-170) U/L Assessment and Plan Assessment: 1. CYNDIE secondary to Rhabdomyolysois. non oliguric, ATN. check UA Patient received 2000 ml 0.9% [place] [address]459, yesterday was 1016 Creatinine is down to 0.6. 2. Status post fall 3. Hypertension. on Cozar ok to continue ARBs 4. Alcohol intoxication 5. Hypercalcemia, most likely associated with volume contraction/depletion on initial admission. Improved. No calcium supplements noted on med list. 6. Elevated liver enzymes secondary to rhabdomyolysis Vs. Alcoholic hepatitis, improving 7. Right renal cyst, benign. Plan: Clear for discharge from nephrology standpoint. Patient is seen and examined. Agree with resident's findings, assessment and plan.
[2025-01-24] MEDS: IPRATROPIUM-ALBUTEROL 3 ML NEB INHALATION PRN (01:25)
--- NOTE | 2025-01-24 11:23 | P.PN ---
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 He denies any LOC. He reports hitting his head. Unsure of down time. Reports occasional EtOH use. EMS was called to bring the patient to the ED. In the ED he underwent extensive evaluation. BP 115/78, HR 112, T 99.1F, RR 20, 99% on RA. CBC, Coag panel, CMP significant for WBC 12.41, RBC 5.8, Hg 17.2, Hct 51.3, BUN 22, glu 113, a 10.8, AST 5556, ALT 203. EtOH 35. [place] [address]. CT head and C-spine no acute abnormality. CT AP right renal cyst. CXR and Pelvic XR no acute abnormality. EKG sinus tachycardia rate of 103. Admitted for further workup and management. 01/20 Patient was seen and examined. He reports pain mostly L back and neck stiffness. Pain is 10/10 severity. CMP significant for BUN 22, AST 223, ALT 123, alb 2.9. CPK 4483. UDS + opiate, TCA, benzo. 01/21 Patient was seen and examined. Doing well. Wanting SNF. Insurance auth pending. CMP significant for Cr 0.61, AST 123, ALT 102, alb 2.7. CPK 2211. 01/22 Patient was seen and examined. Still in considerable amount of pain. Insurance auth still pending. BMP shows Na 135, Cr 0.62, glu 124. CPK 1016. 01/23 Patient was seen and examined. Still in considerable amount of pain. Insurance auth still pending. No new labs done today. 01/24 Patient was seen and examined. Reports Percocet is helping with the pain. Reports having a fall in the shower. RN reports LLE swelling. General: no distress, appears at stated age Derm: warm, dry Head: atraumatic, normocephalic, symmetric Eyes: Pupils non reactive. Mouth: no lip lesion, mucus membranes moist Cardiovascular: S1 S2 reg. No murmur. Lungs: Decreased BS bilaterally, no accessory muscle use Ext: no gross muscle atrophy, LLE 2+ edema, no contractures Neuro: CN II-XII grossly intact, 4/5 strength ELISHA and LLE, 5/5 RU and RLE, sensation intact to touch throughout. Psych: AO x 3 Based on my assessment of this patient, this patient meets a high complexity level of care. LLE swelling: Venous duplex to rule out DVT. Acute rhabdomyolysis: Traumatic. Encourage hydration by mouth. Monitor renal function Fall precautions. PT and OT on board, plans for SNF. SIRS: Likely due to above. No signs of active infection. Monitor. Alcohol intoxication: Patient reports occasional drinking. However, suspect more chronic use. CIWA protocol with Ativan PRN. Folic acid, Thiamine and MVI. Transaminitis: Likely due to rhabdo + EtoH abuse. Hold Lipitor. Encourage hydration by mouth. Polycythemia: Likely due to dehydration. Encourage hydration by mouth. History of CVA: Plavix 75 mg PO QD. Hold Lipitor. HTN: Coreg 12.5 mg PO BID. Losartan 50 mg PO QD. HLD: Hold Lipitor. WPW syndrome Resolved: [facility] PT and OT consulted. Plans for SNF. Medically stable. Discussed with case management, insurance auth pending. CODE STATUS: FULL CODE DVT Prophylaxis: Lovenox. GI Prophylaxis: Designated medical POA if patient is not able to make medical decisions for themselves: Sister I have reviewed the following [employer] hr[employer] consultant notes: Nephrology. I have reviewed the results of the following tests: I have ordered the following tests: Venous duplex LLE. I have discussed the care of this patient with the following independent historian: Case management. BETH. I have independently interpreted the following test below: I have discussed the management of this patient with the following physician: Objective - Vital Signs Vital signs: Vital Signs Temp 98.7 F 01/24/25 07:08 Pulse 79 01/24/25 09:56 Resp 22 01/24/25 07:08 BP 172/93 01/24/25 07:08 Pulse Ox 96 01/24/25 07:08 FiO2 Intake & Output 01/23/25 01/24/25 01/24/25 18:59 06:59 18:59 Other: Voiding Method Toilet # Voids 4 3 # Bowel Movements 2 - Labs CBC & Chem 7: 01/19/25 12:47 01/22/25 10:23
--- NOTE | 2025-01-24 11:30 | P.PN ---
Subjective Progress Note Date: 01/24/25 following for CYNDIE Patient is seen at bedside today. He is c/o left LE edema and numbness. Renal function has improved. Objective - Vital Signs Vital signs: Vital Signs Temp 98.7 F 01/24/25 07:08 Pulse 79 01/24/25 09:56 Resp 22 01/24/25 07:08 BP 172/93 01/24/25 07:08 Pulse Ox 96 01/24/25 07:08 FiO2 Intake & Output 01/23/25 01/24/25 01/24/25 18:59 06:59 18:59 Other: Voiding Method Toilet # Voids 4 3 # Bowel Movements 2 - Exam General: Patient appears well, no acute distress, Alert and oriented, talkative. Heart: S1 and S2, no murmurs heard Lungs: Clear to auscultation bilaterally. MSK: + left LE edema, and skin break. no right LE edema. Abdomen: soft, non tender. HEEL SEWER grossly intact - Labs CBC & Chem 7: 01/19/25 12:47 01/22/25 10:23 Assessment and Plan Assessment: 1. CYNDIE secondary to Rhabdomyolysois. non oliguric, ATN. UA bland, Patient received 2000 ml 0.9% saline. [place] 53622-> 1016 Creatinine is down to 0.6. 2. Status post fall 3. Hypertension. on Cozar ok to continue ARBs 4. Alcohol intoxication 5. Hypercalcemia, most likely associated with volume contraction/depletion on initial admission. Improved. No calcium supplements noted on med list. 6. Elevated liver enzymes secondary to rhabdomyolysis Vs. Alcoholic hepatitis, improving 7. Right renal cyst, benign. Plan: + left LE edema, rule out DVT, discussed with primry team and RN to get US Doppler Clear for discharge from nephrology standpoint.
--- NOTE | 2025-01-24 12:55 | US ---
EXAMINATION TYPE: US venous doppler duplex LE LT DATE OF EXAM: 01/24/2025 10:02 AM COMPARISON: NONE CLINICAL INDICATION: Male, 69 years old with history of swelling; left lateral calf injury, edema at foot TECHNIQUE: The lower extremity deep venous system is examined utilizing real time linear array sonog selina with graded compression, doppler sonography and color-flow sonography. Grayscale, color doppler , spectral doppler imaging performed of the deep veins of the lower extremities FINDINGS: SIDE PERFORMED: Left VESSELS IMAGED: Common Femoral Vein Deep Femoral Vein Greater Saphenous Vein * Femoral Vein Popliteal Vein Small Saphenous Vein * Proximal Calf Veins (* superficial vessels) Left Leg: Negative for DVT as best visualized; There is normal flow, compressibility, vascular wavef orms. exam limited by edema IMPRESSION: No evidence for deep vein thrombosis. [facility], , 01/24/2025 12:52 PM
--- NOTE | 2025-01-25 10:52 | P.PN ---
Subjective Progress Note Date: 01/25/25 following for CYNDIE Patient is seen today. No new complaints, sitting on a chair, legs are elevated, still c/o left leg pain and ulcer. DVT was ruled out. Renal function has improved. no recent BMP Objective - Vital Signs Vital signs: Vital Signs Temp 99.0 F 01/25/25 07:49 Pulse 72 01/25/25 07:49 Resp 19 01/25/25 07:49 BP 149/80 01/25/25 07:49 Pulse Ox 98 01/25/25 07:49 FiO2 Intake & Output 01/24/25 01/25/25 01/25/25 18:59 06:59 18:59 Other: # Voids 5 5 - Exam General: Patient appears well, no acute distress, Alert and oriented, talkative. Heart: S1 and S2, no murmurs heard Lungs: Clear to auscultation bilaterally. MSK: + left LE edema, and skin break. no right LE edema. Abdomen: soft, non tender. ACCOUNTS RECEIVABLE CLERK grossly intact - Labs CBC & Chem 7: 01/19/25 12:47 01/22/25 10:23 Assessment and Plan Assessment: 1. CYNDIE secondary to Rhabdomyolysois. non oliguric, ATN. UA bland, Patient received 2000 ml 0.9% saline. [place] [address]32-> 1016 Creatinine is down to 0.6. 2. Status post fall 3. Hypertension. on Cozar ok to continue ARBs 4. Alcohol intoxication 5. Hypercalcemia, most likely associated with volume contraction/depletion on initial admission. Improved. No calcium supplements noted on med list. 6. Elevated liver enzymes secondary to rhabdomyolysis Vs. Alcoholic hepatitis, improving 7. Right renal cyst, benign. 8. left leg edema, DVT was ruled out 01/24 Plan: check labs periodically Clear for discharge from nephrology standpoint.
--- NOTE | 2025-01-25 11:33 | P.PN ---
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 He denies any LOC. He reports hitting his head. Unsure of down time. Reports occasional EtOH use. EMS was called to bring the patient to the ED. In the ED he underwent extensive evaluation. BP 115/78, HR 112, T 99.1F, RR 20, 99% on RA. CBC, Coag panel, CMP significant for WBC 12.41, RBC 5.8, Hg 17.2, Hct 51.3, BUN 22, glu 113, a 10.8, AST 5556, ALT 203. EtOH 35. [place] [address] head and C-spine no acute abnormality. CT AP right renal cyst. CXR and Pelvic XR no acute abnormality. EKG sinus tachycardia rate of 103. Admitted for further workup and management. 01/20 Patient was seen and examined. He reports pain mostly L back and neck stiffness. Pain is 10/10 severity. CMP significant for BUN 22, AST 223, ALT 123, alb 2.9. CPK 4483. UDS + opiate, TCA, benzo. 01/21 Patient was seen and examined. Doing well. Wanting SNF. Insurance auth pending. CMP significant for Cr 0.61, AST 123, ALT 102, alb 2.7. CPK 2211. 01/22 Patient was seen and examined. Still in considerable amount of pain. Insurance auth still pending. BMP shows Na 135, Cr 0.62, glu 124. CPK 1016. 01/23 Patient was seen and examined. Still in considerable amount of pain. Insurance auth still pending. No new labs done today. 01/24 Patient was seen and examined. Reports Percocet is helping with the pain. Reports having a fall in the shower. RN reports LLE swelling. 01/25 Patient was seen and examined. Venous duplex negative for DVT. Insurance auth pending for SNF. General: no distress, appears at stated age Derm: warm, dry Head: atraumatic, normocephalic, symmetric Eyes: Pupils non reactive. Mouth: no lip lesion, mucus membranes moist Cardiovascular: S1 S2 reg. No murmur. Lungs: Decreased BS bilaterally, no accessory muscle use Ext: no gross muscle atrophy, LLE 2+ edema, no contractures Neuro: CN II-XII grossly intact, 4/5 strength ELISHA and LLE, 5/5 RU and RLE, sensation intact to touch throughout. Psych: AO x 3 Based on my assessment of this patient, this patient meets a high complexity level of care. LLE swelling: Venous duplex neg for DVT. BRIT wrapping + LE elevation discussed with RN. Acute rhabdomyolysis: Traumatic. Encourage hydration by mouth. Monitor renal function. Fall precautions. PT and OT on board, plans for SNF. SIRS: Likely due to above. No signs of active infection. Monitor. Alcohol intoxication: Patient reports occasional drinking. However, suspect more chronic use. CIWA protocol with Ativan PRN. Folic acid, Thiamine and MVI. Transaminitis: Likely due to rhabdo + EtoH abuse. Hold Lipitor. Encourage hydration by mouth. Polycythemia: Likely due to dehydration. Encourage hydration by mouth. History of CVA: Plavix 75 mg PO QD. Hold Lipitor. HTN: Coreg 12.5 mg PO BID. Losartan 50 mg PO QD. HLD: Hold Lipitor. WPW syndrome Resolved: [facility] PT and OT consulted. Plans for SNF. Medically stable. Insurance auth pending. CODE STATUS: FULL CODE DVT Prophylaxis: Lovenox. GI Prophylaxis: Designated medical POA if patient is not able to make medical decisions for themselves: Sister I have reviewed the following therapeutic consultant notes: Nephrology. I have reviewed the results of the following tests: Venous duplex LLE. I have ordered the following tests: I have discussed the care of this patient with the following independent historian: RN. I have independently interpreted the following test below: I have discussed the management of this patient with the following physician: Objective - Vital Signs Vital signs: Vital Signs Temp 99.0 F 01/25/25 07:49 Pulse 72 01/25/25 07:49 Resp 19 01/25/25 07:49 BP 149/80 01/25/25 07:49 Pulse Ox 98 01/25/25 07:49 FiO2 Intake & Output 01/24/25 01/25/25 01/25/25 18:59 06:59 18:59 Other: # Voids 5 5 - Labs CBC & Chem 7: 01/19/25 12:47 01/22/25 10:23
--- NOTE | 2025-01-26 12:14 | P.PN ---
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 He denies any LOC. He reports hitting his head. Unsure of down time. Reports occasional EtOH use. EMS was called to bring the patient to the ED. In the ED he underwent extensive evaluation. BP 115/78, HR 112, T 99.1F, RR 20, 99% on RA. CBC, Coag panel, CMP significant for WBC 12.41, RBC 5.8, Hg 17.2, Hct 51.3, BUN 22, glu 113, a 10.8, AST 5556, ALT 203. EtOH 35. [place] [address]. [address] head and C-spine no acute abnormality. CT AP right renal cyst. CXR and Pelvic XR no acute abnormality. EKG sinus tachycardia rate of 103. Admitted for further workup and management. CK improved with IV hydration. Evaluated by PT and OT, recommending SNF. LLE swelling, venous duplex neg for DVT. 01/26 Patient was seen and examined. No complaints. LLE swelling improved. Insurance auth pending for SNF. General: no distress, appears at stated age Derm: warm, dry Head: atraumatic, normocephalic, symmetric Eyes: Pupils non reactive. Mouth: no lip lesion, mucus membranes moist Cardiovascular: S1 S2 reg. No murmur. Lungs: Decreased BS bilaterally, no accessory muscle use Ext: no gross muscle atrophy, LLE 2+ edema, no contractures Neuro: CN II-XII grossly intact, 4/5 strength ELISHA and LLE, 5/5 RU and RLE, sensation intact to touch throughout. Psych: AO x 3 Based on my assessment of this patient, this patient meets a high complexity level of care. LLE swelling: Venous duplex neg for DVT. BRIT wrapping + LE elevation discussed with RN. Acute rhabdomyolysis: Traumatic. Encourage hydration by mouth. Monitor renal function. Fall precautions. PT and OT on board, plans for SNF. SIRS: Likely due to above. No signs of active infection. Monitor. Alcohol intoxication: Patient reports occasional drinking. However, suspect more chronic use. CIWA protocol with Ativan PRN. Folic acid, Thiamine and MVI. Transaminitis: Likely due to rhabdo + EtoH abuse. Hold Lipitor. Encourage hydration by mouth. Polycythemia: Likely due to dehydration. Encourage hydration by mouth. History of CVA: Plavix 75 mg PO QD. Hold Lipitor. HTN: Coreg 12.5 mg PO BID. Losartan 50 mg PO QD. HLD: Hold Lipitor. WPW syndrome Resolved: [facility] PT and OT consulted. Plans for SNF. Medically stable. Insurance auth pending. CODE STATUS: FULL CODE DVT Prophylaxis: Lovenox. GI Prophylaxis: Designated medical POA if patient is not able to make medical decisions for themselves: Sister I have reviewed the following practice consultant notes: I have reviewed the results of the following tests: I have ordered the following tests: I have discussed the care of this patient with the following independent historian: RN. Case management. I have independently interpreted the following test below: I have discussed the management of this patient with the following physician: Objective - Vital Signs Vital signs: Vital Signs Temp 98.5 F 01/26/25 07:32 Pulse 70 01/26/25 07:32 Resp 18 01/26/25 07:32 BP 178/92 01/26/25 07:32 Pulse Ox 94 L 01/26/25 07:32 FiO2 Intake & Output 01/25/25 01/26/25 01/26/25 18:59 06:59 18:59 Other: # Voids 2 4 3 # Bowel Movements 1 1 - Labs CBC & Chem 7: 01/19/25 12:47 01/22/25 10:23
[2025-01-26 14:08] VITALS: BMI 26.9
--- NOTE | 2025-01-27 14:10 | P.PN ---
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 He denies any LOC. He reports hitting his head. Unsure of down time. Reports occasional EtOH use. EMS was called to bring the patient to the ED. In the ED he underwent extensive evaluation. BP 115/78, HR 112, T 99.1F, RR 20, 99% on RA. CBC, Coag panel, CMP significant for WBC 12.41, RBC 5.8, Hg 17.2, Hct 51.3, BUN 22, glu 113, a 10.8, AST 5556, ALT 203. EtOH [place]. [place] [address]. CT head and C-spine no acute abnormality. CT AP right renal cyst. CXR and Pelvic XR no acute abnormality. EKG sinus tachycardia rate of 103. Admitted for further workup and management. CK improved with IV hydration. Evaluated by PT and OT, recommending SNF. LLE swelling, venous duplex neg for DVT. 01/27: Seen examined at bedside, no acute events overnight. Patient planes of small patch of what he calls allergy that he noted on his lower belly, its around 1 x 1 cm, some scaling appearance, per patient was getting wet overnight. He also complains that his pain regimen is not optimized for his back pain, I did explain that he is currently getting higher doses in his home [place]. Patient also requested his diet to be changed to regular. He is afebrile, heart rate in 70s, blood pressure 165/95. Insurance authorization is still pending, patient is medically stable for discharge Pertinent positives and negatives as discussed above, a complete review of systems was performed and all other systems are negative. Vitals Signs Reviewed. General: [nontoxic], [no distress], [appears at stated age] Derm: [warm], [dry], lower abdomen patch 1 x 1 cm Head: [atraumatic], [normocephalic], [symmetric] Eyes: [EOMI], [no lid lag], [anicteric sclera] Mouth: [no lip lesion], [mucus membranes moist] Cardiovascular: [S1S2 reg], [no murmur] Lungs: [CTA bilateral], [no rhonchi, no rales] , [no accessory muscle use] Abdominal: [soft], [ nontender to palpation], [no guarding], [no appreciable organomegaly] Ext: [no gross muscle atrophy], [bilateral lower extremity edema], [no contractures] Neuro: [ CN II-XI grossly intact], [no focal neuro deficits] Psych: [Alert], [oriented], [appropriate affect] Assessment and Plan: Acute rhabdomyolysis, traumatic -Encourage hydration by mouth. Monitor renal function. Fall precautions. PT and OT on board, plans for SNF. SIRS - Likely due to above. No signs of active infection. Monitor. Alcohol intoxication -Patient reports occasional drinking. However, suspect more chronic use. CIWA protocol with Ativan PRN. Folic acid, Thiamine and MVI. Abdominal skin rash - Etiology unclear, trial of Benadryl topical 3 times daily scheduled Transaminitis -Likely due to rhabdo + EtoH abuse. Hold Lipitor. Encourage hydration by mouth. Polycythemia -Likely due to dehydration. Encourage hydration by mouth. History of CVA: Plavix 75 mg PO QD. Hold Lipitor. HTN: Coreg 12.5 mg PO BID. Losartan 50 mg PO QD. HLD: Hold Lipitor. WPW syndrome LLE swelling: Venous duplex neg for DVT. BRIT wrapping + LE elevation DVT ppx: Lovenox Code status: Full code Anticipated discharge [facility]: [facility] Anticipated discharge time: Stable for discharge, pending insurance authorization Objective - Vital Signs Vital signs: Vital Signs Temp 97.9 F 01/27/25 08:00 Pulse 78 01/27/25 08:00 Resp 16 01/27/25 08:00 BP 171/92 01/27/25 08:00 Pulse Ox 96 01/27/25 08:00 FiO2 Intake & Output 01/26/25 01/27/25 01/27/25 18:59 06:59 18:59 Weight 85.275 kg Other: Voiding Method Toilet # Voids 3 3 # Bowel Movements 1 - Labs CBC & Chem 7: 01/19/25 12:47 01/22/25 10:23
[2025-01-27] MEDS: diphenhydrAMINE 2% CREAM 28.4 GM TUBE TOPICAL SCH (16:38)
--- NOTE | 2025-01-28 16:43 | P.PN ---
Subjective Progress Note Date: 01/28/25 Hospital Course: 69 year old M with PMH WPW syndrome, CVA with L sided residual weakness, HTN, HLD presents to the ED after losing his footing and falling yesterday around 11PM. He denies any LOC. He reports hitting his head. Unsure of down time. Reports occasional EtOH use. EMS was called to bring the patient to the ED. In the ED he underwent extensive evaluation. BP 115/78, HR 112, T 99.1F, RR 20, 99% on RA. CBC, Coag panel, CMP significant for WBC 12.41, RBC 5.8, Hg 17.2, Hct 51.3, BUN 22, glu 113, a 10.8, AST 5556, ALT 203. EtOH 35. CPK [address]. CT head and C-spine no acute abnormality. CT AP right renal cyst. CXR and Pelvic XR no acute abnormality. EKG sinus tachycardia rate of 103. Admitted for further workup and management. CK improved with IV hydration. Evaluated by PT and OT, recommending SNF. LLE swelling, venous duplex neg for DVT. 730Seen examined at bedside, no acute events overnight. Complains of left wrist pain, improved somewhat, he is ambulating independently. He is afebrile with heart rate in 60s, blood pressure 176/83, satting well on room insurance authorization is still pending, patient is medically stable for discharge Pertinent positives and negatives as discussed above, a complete review of systems was performed and all other systems are negative. Vitals Signs Reviewed. General: [nontoxic], [no distress], [appears at stated age] Derm: [warm], [dry], lower abdomen patch 1 x 1 cm Head: [atraumatic], [normocephalic], [symmetric] Eyes: [EOMI], [no lid lag], [anicteric sclera] Mouth: [no lip lesion], [mucus membranes moist] Cardiovascular: [S1S2 reg], [no murmur] Lungs: [CTA bilateral], [no rhonchi, no rales] , [no accessory muscle use] Abdominal: [soft], [ nontender to palpation], [no guarding], [no appreciable organomegaly] Ext: [no gross muscle atrophy], [bilateral lower extremity edema], [no contractures] Neuro: [ CN II-XI grossly intact], [no focal neuro deficits] Psych: [Alert], [oriented], [appropriate affect] Assessment and Plan: Acute rhabdomyolysis, traumatic -Encourage hydration by mouth. Monitor renal function. Fall precautions. PT and OT on board, plans for SNF. SIRS - Likely due to above. No signs of active infection. Monitor. Alcohol intoxication -Patient reports occasional drinking. However, suspect more chronic use. CIWA protocol with Ativan PRN. Folic acid, Thiamine and MVI. Abdominal skin rash - Etiology unclear, trial of Benadryl topical 3 times daily scheduled Transaminitis -Likely due to rhabdo + EtoH abuse. Hold Lipitor. Encourage hydration by mouth. Polycythemia -Likely due to dehydration. Encourage hydration by mouth. History of CVA: Plavix 75 mg PO QD. Hold Lipitor. HTN: Coreg 12.5 mg PO BID. Losartan 50 mg PO QD. HLD: Hold Lipitor. WPW syndrome LLE swelling: Venous duplex neg for DVT. BRIT wrapping + LE elevation DVT ppx: Lovenox Code status: Full code Anticipated discharge place: [facility] Anticipated discharge time: Stable for discharge, pending insurance authorization Objective - Vital Signs Vital signs: Vital Signs Temp 98.0 F 01/28/25 14:00 Pulse 66 01/28/25 14:00 Resp 16 01/28/25 14:00 BP 146/83 01/28/25 14:00 Pulse Ox 97 01/28/25 14:00 FiO2 Intake & Output 01/27/25 01/28/25 01/28/25 18:59 06:59 18:59 Intake Total 450 Balance 450 Intake: Oral 450 Other: Voiding Method Toilet # Voids 2 1 - Labs CBC & Chem 7: 01/19/25 12:47 01/22/25 10:23
--- NOTE | 2025-01-29 08:48 | P.DS ---
Providers Date of admission: 01/19/25 14:41 Attending physician: Ronal Nash Consults: 01/19/25 14:57 Consult Physician Routine Consulting Provider: Alexus Andre Consult Reason/Comments: rhabdo Do you want consulting provider notified?: Yes Primary care physician: Bunny Phipps MD Hospital Course: Discharge Diagnosis: Acute traumatic rhabdomyolysis Alcohol intoxication Abdominal skin rash, atopical vs allergic Transaminitis Polycythemia History of CVA Hypertension Hyperlipidemia BPV syndrome Left lower extremity swelling Hospital Course: 69 year old M with PMH WPW syndrome, CVA with L sided residual weakness, HTN, HLD presents to the ED after losing his footing and falling yesterday around 11PM. He denies any LOC. He reports hitting his head. Unsure of down time. Reports occasional EtOH use. EMS was called to bring the patient to the ED. In the ED he underwent extensive evaluation. BP 115/78, HR 112, T 99.1F, RR 20, 99% on RA. CBC, Coag panel, CMP significant for WBC 12.41, RBC 5.8, Hg 17.2, Hct 51.3, BUN 22, glu 113, a 10.8, AST 5556, ALT 203. EtOH 35. [place] [address]. CT head and C-spine no acute abnormality. CT AP right renal cyst. CXR and Pelvic XR no acute abnormality. EKG sinus tachycardia rate of 103. Admitted for further workup and management. CK improved with IV hydration. Evaluated by PT and OT, recommending SNF. LLE swelling, venous duplex neg for DVT. 01/29Seen examined at bedside, no acute events overnight. Complains of left wrist pain, improved somewhat, he is ambulating independently, tolerating oral diet. He is afebrile with heart rate in 60s, blood pressure 149/80, satting , patient is medically stable for discharge Patient seen and examined at bedside. Vital signs reviewed and stable. General: [nontoxic], [no distress], [appears at stated age] Derm: [warm], [dry], lower abdomen patch 1 x 1 cm Head: [atraumatic], [normocephalic], [symmetric] Eyes: [EOMI], [no lid lag], [anicteric sclera] Mouth: [no lip lesion], [mucus membranes moist] Cardiovascular: [S1S2 reg], [no murmur] Lungs: [CTA bilateral], [no rhonchi, no rales] , [no accessory muscle use] Abdominal: [soft], [ nontender to palpation], [no guarding], [no appreciable org anomegaly] Ext: [no gross muscle atrophy], [bilateral lower extremity edema], [no contractures] Neuro: [ CN II-XI grossly intact], [no focal neuro deficits] Psych: [Alert], [oriented], [appropriate affect] A total of 40 minutes of time were spent preparing this complex discharge summary. Patient was discharged on 01/29. Patient Condition at Discharge: Fair Plan - Discharge Summary Discharge Rx Participant: Yes New Discharge Prescriptions: New Folic Acid 1 mg PO DAILY #30 tab Thiamine [Vitamin B-1] 100 mg PO DAILY #30 tab Continue Clopidogrel [Plavix] 75 mg PO DAILY tab carvediloL [Coreg] 12.5 mg PO BID-W/MEALS Gabapentin 300 mg PO BID #60 cap Atorvastatin [Lipitor] 20 mg PO HS tab Losartan Potassium 50 mg PO DAILY Cetirizine HCl 10 mg PO DAILY Changed HYDROcodone/APAP 5-325MG [[place] 5-325] 1 tab PO Q4HR PRN #18 tab PRN Reason: pain Discharge Medication List Atorvastatin [Lipitor] 20 mg PO HS tab 11/14/24 [Rx] Clopidogrel [Plavix] 75 mg PO DAILY tab 11/14/24 [Rx] Cetirizine HCl 10 mg PO DAILY 01/19/25 [History] Losartan Potassium 50 mg PO DAILY 01/19/25 [History] carvediloL [Coreg] 12.5 mg PO BID-W/MEALS 01/19/25 [History] Folic Acid 1 mg PO DAILY #30 tab 01/29/25 [Rx] Gabapentin 300 mg PO BID #60 cap 01/29/25 [Rx] HYDROcodone/APAP 5-325MG [[place] 5-325] 1 tab PO Q4HR PRN #18 tab 01/29/25 [Rx] Thiamine [Vitamin B-1] 100 mg PO DAILY #30 tab 01/29/25 [Rx] Follow up Appointment(s)/Referral(s): Bunny Phipps MD [Primary Care Provider] - 1-2 days Patient Instructions/Handouts: Rhabdomyolysis (DC) Activity/Diet/Wound Care/Special Instructions: Please, follow-up with your primary care physician. Strongly recommend alcohol cessation Discharge Disposition: TRANSFER TO SNF/ECF
[2025-01-29 09:07] VITALS: BP 165/88; PULSE 61; RESP 16; TEMP 97.3
== END 2025-01-29 12:35 | disposition home or self-care (01) | DRG 564 ==
LOC: EC 12:06 → 4SSUR 14:41
PROVIDERS: ADMIT Student in an Organized Health Care Education/Training Program; ATTEND Student in an Organized Health Care Education/Training Program
DX: T79.6XXA Traumatic ischemia of muscle, initial encounter (principal); N17.0 Acute kidney failure with tubular necrosis; G20.A1 Parkinson's disease without dyskinesia, without mention of fluctuations; I69.354 Hemiplegia and hemiparesis following cerebral infarction affecting left non-dominant side; J44.9 Chronic obstructive pulmonary disease, unspecified; F20.9 Schizophrenia, unspecified; I10 Essential (primary) hypertension; F10.129 Alcohol abuse with intoxication, unspecified; R65.10 Systemic inflammatory response syndrome (SIRS) of non-infectious origin without acute organ dysfunction; F31.9 Bipolar disorder, unspecified; D75.1 Secondary polycythemia; E78.5 Hyperlipidemia, unspecified; E83.52 Hypercalcemia; E86.0 Dehydration; F41.9 Anxiety disorder, unspecified; F90.9 Attention-deficit hyperactivity disorder, unspecified type; I25.2 Old myocardial infarction; I45.6 Pre-excitation syndrome; N28.1 Cyst of kidney, acquired; W18.2XXA Fall in (into) shower or empty bathtub, initial encounter; Y90.1 Blood alcohol level of 20-39 mg/100 ml; Y93.E1 Activity, personal bathing and showering; Z79.02 Long term (current) use of antithrombotics/antiplatelets; Z79.899 Other long term (current) drug therapy; F43.10 Post-traumatic stress disorder, unspecified
CPT/HCPCS: 36415; 70450; 71046; 72125; 72170; 74176; 80048; 80053; 80306; 80320; 81003; 82550; 85025; 85610; 85730; 93005; 94640; 96360; 96361; 99285